=== PATIENT | female | born 1950 | race Caucasian/White ===

== ENCOUNTER 2020-01-24 01:10 | Outpatient (CLI) | payer MEDICARE, SELFPAY ==
[2020-01-24 20:05] LABS: SARS-CoV-2 RNA PCR Negative
== END 2020-01-24 01:11 | disposition home or self-care (01) ==
LOC: ANHCOVIDDT 01:10
PROVIDERS: PCP Internal Medicine; Visit Provider Internal Medicine Gastroenterology
DX: Z01.812 Encounter for preprocedural laboratory examination (principal); Z11.59 Encounter for screening for other viral diseases
CPT/HCPCS: 87635; C9803; U0003

== ENCOUNTER 2020-01-27 02:01 | Day surgery (SDC) | payer MEDICARE, SELFPAY ==
[2020-01-17 15:05] VITALS: BMI 30.1
[2020-01-27 08:16] VITALS: BP 152/89; PULSE 81; RESP 18; TEMP 36.2; O2SAT 97
--- NOTE | 2020-01-27 08:26 | P.PNAN_ITS ---
Anes - Initial Pre Proc Eval Procedure: Operation Date: 01/27/20 09:30 Proposed Procedures p Esophagogastroduodenoscopy - Travis Gleason MD Date/Time: 01/27/20 08:26 Surgeon: Travis Gleason MD Pre Op Diagnosis: dysphagia, abn barium swallow Patient Data Age: 69 Gender: F Height: 1.52 m Weight: 70 kg Allergies Allergy/AdvReac Type Severity Reaction Status Date / Time adhesive tape AdvReac REDNESS Verified 01/27/20 08:18 Home Medications Medication Instructions Recorded Confirmed Type albuterol sulfate [Ventolin HFA] 1 puff INHALATION QID PRN 01/17/20 01/17/20 History aspirin [Jennifer Aspirin] 325 mg PO HS 01/17/20 01/17/20 History atorvastatin 20 mg PO HS 01/17/20 01/17/20 History cholecalciferol (vitamin D3) 50 mcg PO HS 01/17/20 01/17/20 History [Vitamin D3] ferrous gluconate 324 mg PO HS 01/17/20 01/17/20 History fluoxetine [Prozac] 10 mg PO HS 01/17/20 01/17/20 History folic acid 1 mg PO HS 01/17/20 01/17/20 History hydrochlorothiazide 12.5 mg PO HS 01/17/20 01/17/20 History ipratropium-albuterol 1 ml INHALATION QID PRN 01/17/20 01/17/20 History levothyroxine 100 mcg PO HS 01/17/20 01/17/20 History montelukast 10 mg PO HS 01/17/20 01/17/20 History nitroglycerin 0.4 mg SUBLINGUAL BID PRN 01/17/20 01/17/20 History pantoprazole 40 mg PO HS 01/17/20 01/17/20 History potassium chloride 10 meq PO HS 01/17/20 01/17/20 History trazodone 50 mg PO HS PRN 01/17/20 01/17/20 History vitamin B complex [B 1 tablet PO HS 01/17/20 01/17/20 History Complex-Vitamin B12] Patient hx anesthesia problems: none Family hx anesthesia problems: none PMFSH Past Medical History Medical History (Updated 01/27/20 @ 08:29 by Trell Ahmadi MD) Anxiety Back pain CAD (coronary artery disease) 1 STENT 2012 COPD (chronic obstructive pulmonary disease) 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 Depression Gastroesophageal reflux disease DYSPHAGIA, ESOPHAGEAL STRICTURE- DILATED IN PAST Hemorrhoids HTN (hypertension) Hx of transient ischemic attack (TIA) X2 Hypercholesterolemia Hypothyroidism Surgical History Surgical History (Updated 01/27/20 @ 08:29 by Trell Ahmadi MD) Hx of cardiac catheterization 1 STENT 2012 Anes - Eval Final PreProcedure Day of Procedure 01/27/20 08:26 Patient weight: obese Heart: regular rate and rhythm Lungs: clear to auscultation and normal air movement Airway: Mallampati scale class II Neurological: alert and oriented Last oral intake: >/= 8 hours ASA classification: III Emergent: no Anesthetic plan: proceed Anesthesia type and monitoring: general GIVS Informed Consent: The patient's anesthetic plan and its attendant risks and benefits were discussed with the patient/family/POA. Questions were solicited and answers provided to the satisfaction of the patient/family/POA.
--- NOTE | 2020-01-27 08:44 | WPDGICN ---
Assessment and Plan Assessment and plan (1) Dysphagia: Code(s): R13.10 - Dysphagia, unspecified Status: Acute Assessment and Plan: Because of persistent difficulty swallowing. Plan is for EGD today. Patient's symptoms suggest narrowing of the esophagus. Recent barium swallow suggest cricopharyngeal dysfunction which is a possibility as well. Soft diet is advised until endoscopy can be accomplished. (2) Abnormal barium swallow: Code(s): R93.3 - Abnormal findings on diagnostic imaging of other parts of digestive tract Status: Acute GI Consult Note Consult date/time: 01/27/20 08:44 HPI: Verito Jimenez is a 69 year old female seen in evaluation at the request of Dr Priyank Diaz. Patient has complaints of difficulty swallowing over the last 1-1/2 years. She reports food catching in the throat. This happens more with solids compared to liquids. Recent barium swallow suggested indentation in the proximal esophagus suspicious for cricopharyngeal dysfunction. Review of Systems Review of Systems: All systems reviewed & are unremarkable except as noted in HPI and below PMFSH Past Medical History Medical History Anxiety Back pain CAD (coronary artery disease) 1 STENT 2012 COPD (chronic obstructive pulmonary disease) HX [employer] SMOKER Depression Gastroesophageal reflux disease DYSPHAGIA, ESOPHAGEAL STRICTURE- DILATED IN PAST Hemorrhoids HTN (hypertension) Hx of transient ischemic attack (TIA) X2 Hypercholesterolemia Hypothyroidism Surgical History Surgical History Hx of cardiac catheterization 1 STENT 2012 Meds Home Medications and Allergies Home Medications Medication Instructions Recorded Confirmed Type albuterol sulfate [Ventolin HFA] 1 puff INHALATION QID PRN 01/17/20 01/17/20 History aspirin [Jennifer Aspirin] 325 mg PO HS 01/17/20 01/17/20 History atorvastatin 20 mg PO HS 01/17/20 01/17/20 History cholecalciferol (vitamin D3) 50 mcg PO HS 01/17/20 01/17/20 History [Vitamin D3] ferrous gluconate 324 mg PO HS 01/17/20 01/17/20 History fluoxetine [Prozac] 10 mg PO HS 01/17/20 01/17/20 History folic acid 1 mg PO HS 01/17/20 01/17/20 History hydrochlorothiazide 12.5 mg PO HS 01/17/20 01/17/20 History ipratropium-albuterol 1 ml INHALATION QID PRN 01/17/20 01/17/20 History levothyroxine 100 mcg PO HS 01/17/20 01/17/20 History montelukast 10 mg PO HS 01/17/20 01/17/20 History nitroglycerin 0.4 mg SUBLINGUAL BID PRN 01/17/20 01/17/20 History pantoprazole 40 mg PO HS 01/17/20 01/17/20 History potassium chloride 10 meq PO HS 01/17/20 01/17/20 History trazodone 50 mg PO HS PRN 01/17/20 01/17/20 History vitamin B complex [B 1 tablet PO HS 01/17/20 01/17/20 History Complex-Vitamin B12] Allergies Allergy/AdvReac Type Severity Reaction Status Date / Time adhesive tape AdvReac REDNESS Verified 01/27/20 08:18 Vital Signs Vital Signs - 24 hr 01/27/20 08:16 Temperature 97.1 F L Pulse Rate 81 Respiratory Rate 18 Blood Pressure 152/89 H Pulse Oximetry 97 Exam Narrative: Exam Narrative: Physical exam reveals patient to be alert. Vital signs stable. HEENT exam unremarkable. Lungs are clear to auscultation and percussion. Heart is without murmur or extra sounds. Abdominal exam bowel sounds are present soft nontender with no organomegaly. Digital external rectal exam deferred today.
[2020-01-27] MEDS: LACTATED RINGERS 1,000 ML 150 ML IV CONT (08:45)
[2020-01-27] MEDS: BENZOCAINE (*SP) 60 ML SPRAY CAN (HURRICAINE) 1 SPRAY MUCOUS MEM (09:48)
[2020-01-27 09:52] VITALS: BP 117/68; PULSE 69; RESP 16; O2SAT 96
[2020-01-27 10:02] VITALS: BP 120/74; PULSE 71; RESP 20; O2SAT 96
[2020-01-27 10:12] VITALS: BP 149/87; PULSE 70; RESP 18; O2SAT 95
== END 2020-01-27 10:35 | disposition home or self-care (01) ==
PROVIDERS: PCP Internal Medicine; Visit Provider Internal Medicine Gastroenterology
PROC: 0DJ08ZZ Inspection of Upper Intestinal Tract, Via Natural or Artificial Opening Endoscopic (ICD-10-PCS; CPT 43235; principal; 2020-01-27 09:30)
DX: R13.10 Dysphagia, unspecified (principal); I10 Essential (primary) hypertension; I25.10 Atherosclerotic heart disease of native coronary artery without angina pectoris; K21.9 Gastro-esophageal reflux disease without esophagitis; J44.9 Chronic obstructive pulmonary disease, unspecified; E78.00 Pure hypercholesterolemia, unspecified; E03.9 Hypothyroidism, unspecified; F41.8 Other specified anxiety disorders; Z86.73 Personal history of transient ischemic attack (TIA), and cerebral infarction without residual deficits; Z95.5 Presence of coronary angioplasty implant and graft; Z79.82 Long term (current) use of aspirin; E66.9 Obesity, unspecified; Z68.30 Body mass index [BMI] 30.0-30.9, adult
CPT/HCPCS: 43450; 43235; J2704; J7120

== ENCOUNTER 2021-06-27 10:20 | Emergency (ER) | payer MEDICARE, SELFPAY ==
--- NOTE | 2021-06-27 10:27 | ED.SKABFB ---
HPI - Skin/Abscess/Foreign Bdy General Chief complaint: Skin/Abscess/Foreign Body Stated complaint: facial swelling,rash Time Seen by Provider: 06/27/21 10:27 Source: patient and RN notes reviewed History of Present Illness HPI narrative: Patient is a 70-year-old female who presents the urgent care with complaints of rash to the chest and facial swelling. Patient states that it started yesterday after she started a new medication 2 days ago, clindamycin. Patient states that for the last couple months she has been treated with oral antibiotics for an infection underneath a crown. Patient states that she had recent surgery and is on Plavix and therefore is unable to have a procedure done for some time. Patient denies of any fevers. Denies of any dental pain. Patient did not take anything [id number] for her itching, swelling or rash. Patient denies of any difficulty swallowing. States that she stopped taking the clindamycin. No other acute complaints. No acute distress noted. Patient aware of the plan of care. Some parts of this dictation were generated by voice recognition software and may contain typographical and/or grammatical inaccuracies. Related Data Home Medications Medication Instructions Recorded Confirmed albuterol sulfate [Ventolin HFA] 1 puff INHALATION QID PRN 01/17/20 06/27/21 aspirin [Jennifer Aspirin] 325 mg PO HS 01/17/20 06/27/21 atorvastatin 20 mg PO HS 01/17/20 06/27/21 cholecalciferol (vitamin D3) 50 mcg PO HS 01/17/20 06/27/21 [Vitamin D3] ferrous gluconate 324 mg PO HS 01/17/20 06/27/21 fluoxetine [Prozac] 10 mg PO HS 01/17/20 06/27/21 folic acid 1 mg PO HS 01/17/20 06/27/21 hydrochlorothiazide 12.5 mg PO HS 01/17/20 06/27/21 ipratropium-albuterol 1 ml INHALATION QID PRN 01/17/20 06/27/21 levothyroxine 100 mcg PO HS 01/17/20 06/27/21 montelukast 10 mg PO HS 01/17/20 06/27/21 nitroglycerin 0.4 mg SUBLINGUAL BID PRN 01/17/20 06/27/21 pantoprazole 40 mg PO HS 01/17/20 06/27/21 potassium chloride 10 meq PO HS 01/17/20 06/27/21 trazodone 50 mg PO HS PRN 01/17/20 06/27/21 vitamin B complex [B 1 tablet PO HS 01/17/20 06/27/21 Complex-Vitamin B12] Allergies Allergy/AdvReac Type Severity Reaction Status Date / Time clindamycin Allergy Rash Verified 06/27/21 10:41 adhesive tape AdvReac REDNESS Verified 01/27/20 08:18 Review of Systems Review of Systems: CONSTITUTIONAL: Denies fever, chills, or sweats. EYES: Denies visual changes, redness, or discharge. ENT: Denies rhinorrhea, congestion, sore throat, or otalgia. Reports of facial swelling CARDIOVASCULAR: Denies chest pain, palpitations, or edema. RESPIRATORY: Denies cough or dyspnea. GASTROINTESTINAL: Denies abdominal pain, nausea, vomiting, or diarrhea. GENITOURINARY: Denies dysuria or hematuria. SKIN: Reports of itchy rash to the chest MUSCULOSKELETAL: Denies back pain, joint pain, or myalgia. NEUROLOGIC: Denies headache, numbness, or weakness. All other systems reviewed are negative, except as documented in HPI. [facility] Past Medical History Medical History (Updated 06/27/21 @ 10:52 by ISAAC Lopez) Anxiety Back pain CAD (coronary artery disease) 1 STENT 2012 COPD (chronic obstructive pulmonary disease) HX PRISON SMOKER Depression Gastroesophageal reflux disease DYSPHAGIA, ESOPHAGEAL STRICTURE- DILATED IN PAST Hemorrhoids HTN (hypertension) Hx of transient ischemic attack (TIA) X2 Hypercholesterolemia Hypothyroidism Surgical History Surgical History Hx of cardiac catheterization 1 STENT 2012 Comments At the time of my signature, I reviewed and agree with the nursing past medical, surgical, social, and family history. There is no relevant family history pertinent to the patient complaint. Exam Narrative: GENERAL: This is a well-nourished, well-developed patient, in no apparent distress. HEAD: normocephalic, atraumatic. Mild diffuse facial swelling EYES: P
[2021-06-27 10:36] VITALS: BP 102/68; PULSE 63; RESP 18; TEMP 36.1; O2SAT 98
== END 2021-06-27 10:57 | disposition home or self-care (01) ==
PROVIDERS: Emergency Provider Nurse Practitioner Family; PCP Internal Medicine
DX: L27.0 Generalized skin eruption due to drugs and medicaments taken internally (principal); T36.8X5A Adverse effect of other systemic antibiotics, initial encounter; I25.10 Atherosclerotic heart disease of native coronary artery without angina pectoris; Z95.5 Presence of coronary angioplasty implant and graft; J44.9 Chronic obstructive pulmonary disease, unspecified; K21.9 Gastro-esophageal reflux disease without esophagitis; I10 Essential (primary) hypertension; Z86.73 Personal history of transient ischemic attack (TIA), and cerebral infarction without residual deficits; E78.00 Pure hypercholesterolemia, unspecified; E03.9 Hypothyroidism, unspecified; F41.9 Anxiety disorder, unspecified
CPT/HCPCS: 99213; G0463

== ENCOUNTER → 2021-11-27 09:43 | Outpatient (CLI) | payer MEDICARE, SELFPAY ==
--- NOTE | ~2021-11-27 | MR_ITS ---
EXAMINATION: MR lumbar spine wo con DATE: 11/27/2021 10:20 INDICATION: Low back pain. Left buttock pain. Left heel numbness. Left leg weakness. TECHNIQUE: Magnetic resonance imaging (MRI) of the lumbar spine was performed without intravenous con trast. Sequences included sagittal T2-weighted FSE, sagittal T2-weighted FS FSE, sagittal T1-weighted FSE, and axial T2-weighted FSE. COMPARISON: None FINDINGS: There is 11 degrees dextroscoliosis of lumbar spine. There is 3 mm retrolisthesis of L2 on L3 and L3 on L4. Vertebral body heights are normal. There is mildly decreased disc height at L1-L2, s everely decreased disc height at L2-L3, and mildly decreased disc height at L3-L4 and L4-L5. The dist al spinal cord signal intensity is normal. The conus medullaris is at L1. The following disc levels a re specifically discussed: L1-L2: The disc is bulging. There is mild bilateral facet joint osteoarthritis. There is mild bilater al neural foraminal stenosis. There is mild central canal stenosis. L2-L3: The disc is bulging and has an annular fissure. There is mild bilateral facet joint osteoarthr itis. There is mild bilateral neural foraminal stenosis. There is mild central canal stenosis. L3-L4: The disc is bulging and has an annular fissure. There is mild bilateral facet joint osteoarthr itis. There is mild bilateral neural foraminal stenosis. There is mild central canal stenosis. L4-L5: The disc is bulging and has an annular fissure. There is mild bilateral facet joint osteoarthr itis. There is moderate right and mild left neural foraminal stenosis. There is mild central canal st enosis. L5-S1: The disc is bulging and has an annular fissure. There is severe bilateral facet joint osteoart hritis. There is mild bilateral neural foraminal stenosis. There is mild central canal stenosis. IMPRESSION: 1. Severe lumbar spondylosis. 2. Lumbar dextroscoliosis. Reviewed, dictated and finalized at location A.
== END ==
PROVIDERS: PCP Internal Medicine; Visit Provider Internal Medicine
DX: M54.32 Sciatica, left side (principal); M47.816 Spondylosis without myelopathy or radiculopathy, lumbar region; M41.86 Other forms of scoliosis, lumbar region
CPT/HCPCS: 72148

== ENCOUNTER 2022-06-11 10:03 | Emergency (ER) | payer MEDICARE, SELFPAY ==
[2022-06-11 10:16] VITALS: BP 147/79; PULSE 68; RESP 18; TEMP 36.4; O2SAT 100
--- NOTE | 2022-06-11 10:16 | ED.FEMALEGU ---
HPI - Female Genitourinary General Chief complaint: Urogenital-Female Stated complaint: . Time Seen by Provider: 06/11/22 10:16 Source: patient, RN notes reviewed and old records reviewed Mode of arrival: ambulatory Limitations: no limitations History of Present Illness HPI Narrative: 71-year-old female presents to the [facility] with complaints urinary frequency, urgency, burning That has gradually been getting worse for the last 6 days. No treatment prior to arrival. Denies fevers but had felt feverish. Denies abdominal pain. No CVA tenderness. No nausea or vomiting Related Data Home Medications Medication Instructions Recorded Confirmed albuterol sulfate 90 mcg/actuation 1 puff inhalation QID PRN 01/17/20 06/11/22 aerosol inhaler (Ventolin HFA) Shortness Of Breath cholecalciferol (vitamin D3) 50 50 mcg PO HS 01/17/20 06/11/22 mcg (2,000 unit) capsule (Vitamin D3) ferrous gluconate 324 mg (37.5 mg 324 mg PO HS 01/17/20 06/11/22 iron) tablet ipratropium 0.5 mg-albuterol 3 mg 1 ml inhalation QID PRN Shortness 01/17/20 06/11/22 (2.5 mg base)/3 mL nebulization Of Breath soln nitroglycerin 0.4 mg sublingual 0.4 mg sublingual BID PRN Chest 01/17/20 06/11/22 tablet Pain vitamin B complex (B 1 tablet PO HS 01/17/20 06/11/22 Complex-Vitamin B12 tablet) levothyroxine 75 mcg tablet 75 mcg PO DAILY 03/24/22 06/11/22 (Synthroid) coenzyme Q10 200 mg capsule 200 mg PO DAILY 03/25/22 06/11/22 Allergies Allergy/AdvReac Type Severity Reaction Status Date / Time clindamycin Allergy Rash Verified 06/11/22 10:24 adhesive tape AdvReac REDNESS Verified 06/11/22 10:24 Review of Systems Review of Systems: All systems reviewed & are unremarkable except as noted in HPI and below Constitutional: Constitutional: Reports no additional constitutional complaints Eyes: Eyes: Reports no additional eye complaints ENT: Reports system reviewed and no additional complaints, except as documented Cardiovascular: Cardiovascular: Reports no additional cardiovascular complaints, Denies chest pain and Denies dyspnea Respiratory: Respiratory: Reports no additional respiratory complaints, Denies chest congestion, Denies cough and Denies dyspnea Gastrointestinal: Gastrointestinal: Reports no additional gastrointestinal complaints, Denies abdominal pain, Denies nausea and Denies vomiting Genitourinary: Genitourinary: Reports as per HPI and Reports dysuria Musculoskeletal: Musculoskeletal: Reports no additional musculoskeletal complaints Integumentary/Breasts: Skin/Breast: Reports system reviewed and no additional complaints, except as docu Neurologic: Reports system reviewed and no additional complaints, except as documented Psychiatric: Psychiatric: Reports no additional psychiatric complaints Allergic/Immunologic: Allergic/Immunologic: Reports no additional allergic/immunologic complaints PMFSH Past Medical History Medical History Anemia Anxiety Back pain CAD (coronary artery disease) 1 STENT 2012 COPD (chronic obstructive pulmonary disease) HX [facility] SMOKER Depression Gastroesophageal reflux disease DYSPHAGIA, ESOPHAGEAL STRICTURE- DILATED IN PAST Hemorrhoids HTN (hypertension) Hx of transient ischemic attack (TIA) X2 Hypercholesterolemia Hypothyroidism Surgical History Surgical History History of left-sided carotid endarterectomy Hx of cardiac catheterization 1 STENT 2012 Social History Social History Smoking packs per day: 2 Smoking cigarettes per day: 40.0 Years smoked: 60 Smoking pack-years: 120.00 Smoking status: Former smoker Alcohol intake: never Substance use: never Gender identity (if verbalized by the patient): Female Comments At the time of my signature, I reviewed and agree with the nursing past medic
== END 2022-06-11 11:16 | disposition home or self-care (01) ==
PROVIDERS: Emergency Provider Nurse Practitioner; PCP Family Medicine
DX: N39.0 Urinary tract infection, site not specified (principal); Z87.891 Personal history of nicotine dependence; J44.9 Chronic obstructive pulmonary disease, unspecified; K21.9 Gastro-esophageal reflux disease without esophagitis; E78.00 Pure hypercholesterolemia, unspecified; E03.9 Hypothyroidism, unspecified; I25.10 Atherosclerotic heart disease of native coronary artery without angina pectoris; Z95.5 Presence of coronary angioplasty implant and graft; D64.9 Anemia, unspecified; F41.9 Anxiety disorder, unspecified
CPT/HCPCS: 81003; 87077; 87086; 87186; 99213; G0463

== ENCOUNTER 2022-08-31 13:00 | Outpatient (RCR) | payer MEDICARE, SELFPAY ==
--- NOTE | 2022-08-03 13:58 | STOPEVAL1 ---
Assessment and note entered by Alona Andrade, ART APPRAISER Evaluation Information Assessment Status Evaluation Reported Pain Level Pain Score 0: Self Report Assessment ST Clinical Summary VOICE EVALUATION This patient was seen for a Voice Evaluation after being referred for Vocal Cord Atrophy. Patient reports a history of three previous CVA's which she states did not affect her voice, but she is also status/post Carotid Endarderectomy 05/23 and she states that she noted a change in voice following that procedure. Patient also reported a history of dysphagia that occurred prior to the Carotid Endarderectomy and she stated that a swallow test, she feels a Modified Barium Swallow study, revealed a thick bar across the back of her throat requiring surgery. Dysphagia was not discussed today but may be addressed in future sessions. Today the patient exhibited vocal pitch, range and average, and loudness, both in structured tasks and conversationally, to be within normal limits. Patient also experienced pitch breakst throughout reading and conversational tasks, demonstrated as loss in the line of pitch when measured on a voice program. Patient reported that the loss of the line on the graph is exactly what she thought her voice sounded like when speaing. Of note, patient initially started the session with slightly hoarse voice which became stronger following voicing tasks and then at end of session, the decreased vocal quality was again noticeable by this therapist, as if vocal cords had fatigued after working out. Patient farzaneh be seen twice weekly for four weeks to address vocal cord adduction strengthening exercises, not to increase loudness but to increase the strength of the vocal cords to prevent reduced vocal quality and to improve ability to sustain and change pitch when speaking. Results and recommendations were given to the patient who voiced understanding and agreed to continue with Speech Therapy program. Plan of Care Interventions Treatment of Voice ST Services Indicated Yes Treatment Frequency and
--- NOTE | 2022-08-31 15:35 | STOPDC ---
Assessment and note entered by Alona Andrade [employer] Evaluation Information Assessment Status Discharge Reported Pain Level Pain Score 0: Self Report Pain Score 0: Self Report Assessment ST Clinical Summary TREATMENT SESSION AND DISCHARGE SUMMARY This patient has been seen for an initial voice evaluation and then seven direct Speech Therapy sessions for voice secondary to raspy, hoarse vocal quliaty. Her ENT diagnosed her with vocal cord atrophy. During these sessions, patient was instructed in the use of vocal hygiene program, gastroesophageal reflux guidelines, and laryngeal adduction exercises to facilitate increased strength in the vocal cords while voicing. Patient demonstrated good understanding of home exercise program and completed exercises daily. Patient was then instructed in the use of the yawn-sigh technique in order to facilitate reduced stress on the vocal cords and improved breath control and loudness when speaking in functional sentences. Patient demonstrated difficulty with this task. She was instructed to open mouth wide and inhale as in a yawn and she frequently did not open mouth wide but inhaled through her teeth. She was also instructed to gently exhale briefly and then produce /h/ syllables and words and again, she often just said the word/words with increased loudness. With therapist instruction, verbal and visual cues and models, patient was able to achieve a full yawn-sign /h/ word/phrases and general two-word phrases only 50% of the time using open mouth inhalation, exhalation prior to initiating vocalization, easy onset of vocalization, and slightly lower than normal vocal loudness. Today the patient reported that she has been positively diagnosed with Sjogren's syndrome contributing to dry eyes and possibly hoarse voice. She reported no significant change in voice since last session. She complained of having a lot of phlegm in her throat due to sinus and allergies which she says is all year round. She stated that this symptom of phlegm is more significant at night when laying down but usually is able to clear it with a cough. Today she reports her throat i
== END 2022-09-05 11:06 | disposition home or self-care (01) ==
LOC: ANHST 13:00
PROVIDERS: PCP Nurse Practitioner Family; Visit Provider Otolaryngology
DX: R49.0 Dysphonia (principal); R49.9 Unspecified voice and resonance disorder; J38.7 Other diseases of larynx
CPT/HCPCS: 92507; 92524

== ENCOUNTER 2022-09-05 11:55 | Emergency (ER) | payer MEDICARE, SELFPAY ==
[2022-09-05 12:10] VITALS: BP 159/74; PULSE 58; RESP 18; TEMP 36.2; O2SAT 98
--- NOTE | 2022-09-05 12:24 | ED.EXTPRO ---
HPI - Extremity Problem General Chief complaint: Extremity Problem,Nontraumatic Stated complaint: rt arm pain and stiffness Time Seen by Provider: 09/05/22 12:13 Source: patient Mode of arrival: ambulatory Limitations: no limitations History of Present Illness HPI Narrative: Patient presents today complaining of right elbow pain, ?on the funny bone. ? Symptoms began 2 days ago and have been worsening since onset. Denies trauma or injury. She currently rates her pain 10/10, which increases with movement. She has been taking Tylenol and using BenGay with some relief. Denies any repetitive motions or heavy lifting. Denies numbness or tingling in the arm or hand. Related Data Home Medications Medication Instructions Recorded Confirmed cholecalciferol (vitamin D3) 50 50 mcg PO HS 01/17/20 09/05/22 mcg (2,000 unit) capsule (Vitamin D3) ferrous gluconate 324 mg (37.5 mg 324 mg PO HS 01/17/20 09/05/22 iron) tablet ipratropium 0.5 mg-albuterol 3 mg 1 ml inhalation QID PRN Shortness 01/17/20 09/05/22 (2.5 mg base)/3 mL nebulization Of Breath soln nitroglycerin 0.4 mg sublingual 0.4 mg sublingual BID PRN Chest 01/17/20 09/05/22 tablet Pain vitamin B complex (B 1 tablet PO HS 01/17/20 09/05/22 Complex-Vitamin B12 tablet) coenzyme Q10 200 mg capsule 200 mg PO DAILY 03/25/22 09/05/22 Allergies Allergy/AdvReac Type Severity Reaction Status Date / Time adhesive tape AdvReac Mild REDNESS Verified 09/05/22 12:03 clindamycin AdvReac Mild Rash Verified 09/05/22 12:03 Review of Systems Review of Systems: CONSTITUTIONAL: Denies body aches, fever, chills, or sweats. EYES: Denies visual changes, redness, or discharge. ENT: Denies rhinorrhea, congestion, sore throat, or otalgia. CARDIOVASCULAR: Denies chest pain, palpitations, or edema. RESPIRATORY: Denies cough or dyspnea. GASTROINTESTINAL: Denies abdominal pain, nausea, vomiting, or diarrhea. GENITOURINARY: Denies dysuria or hematuria. SKIN: Denies rash, itching, or wounds. MUSCULOSKELETAL: Denies back pain, or myalgia.+ right elbow pain NEUROLOGIC: Denies headache, numbness, tingling, or weakness. PSYCH: Denies depression or anxiety. 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 Depression Gastroesophageal reflux disease DYSPHAGIA, ESOPHAGEAL STRICTURE- DILATED IN PAST Hemorrhoids HTN (hypertension) Hx of transient ischemic attack (TIA) X2 Hypercholesterolemia Hypothyroidism Stroke Surgical History Surgical History History of left-sided carotid endarterectomy Hx of cardiac catheterization 1 STENT 2012 Family History Family History Sibling Depression Cerebrovascular accident Thyroid disorder Other Cancer Social History Social History Smoking packs per day: 2 Smoking cigarettes per day: 40.0 Years smoked: 60 Smoking pack-years: 120.00 Smoking status: Former smoker Second hand tobacco smoke exposure: No Alcohol intake: never Substance use: never Substance use type: does not use Lack of Transportation: No Lack of Food: Never True Current Housing: I Have Housing Concerned About Future Housing: No Difficulty Paying Gas/Electric Bills: No Difficulty Paying for Meds: No Currently Unemployed: No Education: High School Diploma/GED Difficulty w/ Childcare or Family Care: No Living arrangements: with family Occupation/Education: occupation Gender identity (if verbalized by the patient): Female Sexual Orientation (if Verbalized by the Patient): Straight or Heterosexual Comments At time of signature, I have reviewed and agree with n
== END 2022-09-05 12:31 | disposition home or self-care (01) ==
PROVIDERS: Emergency Provider Nurse Practitioner
DX: M77.8 Other enthesopathies, not elsewhere classified (principal); Z87.891 Personal history of nicotine dependence; J44.9 Chronic obstructive pulmonary disease, unspecified; K21.9 Gastro-esophageal reflux disease without esophagitis; I10 Essential (primary) hypertension; I25.10 Atherosclerotic heart disease of native coronary artery without angina pectoris; E78.00 Pure hypercholesterolemia, unspecified; E03.9 Hypothyroidism, unspecified; Z86.73 Personal history of transient ischemic attack (TIA), and cerebral infarction without residual deficits; F41.9 Anxiety disorder, unspecified; F32.A Depression, unspecified
CPT/HCPCS: 99213; G0463

== ENCOUNTER 2024-08-14 13:15 | Outpatient (CLI) | payer MEDICARE, SELFPAY ==
--- NOTE | ~2024-08-14 | XR_ITS ---
MODIFIED ESOPHAGRAM HISTORY: Dysphagia. TECHNIQUE: Modified barium esophagram was performed on 08/14/2024. I administered fluoroscopy and perf ormed the exam with speech pathologist. Patient was seated for lateral fluoroscopic imaging for luis felipe stion of thin liquids, pudding, solids and quantified amounts, followed by thin liquids in uncontroll ed amounts. This was recorded on tape. A single fluoroscopic spot image was also recorded. The DAP fo r this procedure was 0.76 Gycm2. The amount of fluoroscopy time used during this procedure was 1.7 mi nutes. FINDINGS: Oral stage: Adequate function. Pharyngeal stage: Adequate function. Cervical/esophageal stage: Adequate function. IMPRESSION: Patient tolerated regular consistency oral feedings in the upright position. Please lisette elate with speech pathologist findings and specific feeding recommendations. Reviewed, dictated and finalized at location A. F ENTERPRISE ARCHITECT IMPRESSION: Patient tolerated regular consistency oral feedings in the upright position. Please correlate with speech pathologist findings and specific feedi ng recommendations.
--- OUTSIDE RECORDS SUMMARY | 2024-08-14 13:22 | XMS_ITS | Clinical Summary ---
Author Organization [facility] [place] [address] Address [address] [place] [address] Care Team Providers Care Dirt Bike Mechanic Name Role Phone Fercho Mccallum MD Primary Care Provider [phone] Allergies Active Allergy Reactions Criticality Noted Date Comments Adhesive Tape-Silicones Edema,Redness Medium Clindamycin Hives Medium 08/18/2023 Hydralazine Itching,Palpitations Low 08/18/2023 Medications montelukast (SINGULAIR) 10 mg tablet take 1 tablet by oral route every day in the evening 0 0 3 Active ferrous gluconate 324 mg (37.5 mg of elemental iron) tablet Take 1 tablet (324 mg total) by mouth daily Active FLUoxetine (PROzac) 10 mg tablet/capsule Take 1 tablet/capsule (10 mg total) by mouth daily Active ergocalciferol (VITAMIN D) 50,000 unit capsule Take 1 capsule (50,000 Units total) by mouth once a week Active coenzyme Q10 200 mg capsule Take 1 capsule (200 mg total) by mouth daily Active levothyroxine (SYNTHROID) 50 mcg tablet [address] (PROTONIX) 40 mg EC tablet Take 1 tablet (40 mg total) by mouth 2 (two) times a day 0 Active cyanocobalamin (Vitamin B-12) 1,000 mcg tabletIndication s:Prevention of Vitamin B12 Deficiency Take 1 tablet (1,000 mcg total) by mouth daily Active clopidogreL (PLAVIX) 75 mg tablet Take 1 tablet (75 mg total) by mouth daily 2 Active pravastatin (PRAVACHOL) 20 mg tablet Take 2 tablets (40 mg total) by mouth nightly at bedtime Active cholecalciferol (VITAMIN D-3) 2000 unit tablet Take 1 tablet (2,000 Units total) by mouth daily Active lisinopriL (PRINIVIL,ZESTRI L) 20 mg tablet Take 1 tablet (20 mg total) by mouth daily 4 Active aspirin 81 mg enteric coated tablet Take 1 tablet (81 mg total) by mouth daily 4 Active nitroglycerin (NITROSTAT) 0.[address] 1 tablet (0.4 mg total) under the tongue every 5 (five) minutes as needed for chest pain 4 Active Lactobacillus acidophilus 10 billion cell capsule Take 1 capsule by mouth daily Active cycloSPORINE (RESTASIS) 0.05 % ophthalmic emulsion Administer 1 drop into both eyes 2 (two) times a day Active ezetimibe (ZETIA) 10 mg tablet Take 1 tablet (10 mg total) by mouth daily 90 tablet 2 4 04/24/20 25 Active Active Problems Problem Noted Date Diagnosed Date Coronary artery disease invo lving [place] coronary artery of [place] heart without angina pectoris 06/22/2017 History of coronary artery stent placement 06/22 Medical History Medical History Date Comments Hypertension Hypertension Cerebrovascular accident (CVA) (HCC) Stroke 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 Family History Medical History Relation Name Comments Stent Brother 2 Coronary Stent Placement; Coronary artery disease Mother Corey nary Artery Bypass Graft; Relation Name Status Comments Brother 1 Alive Brother 2 Mother Alive Social History Tobacco Use Types Packs/Day Years Used Date Smoking Tobacco: Former Cigarettes Q uit: 03/26/2018 Smokeless Tobacco: Never Tobacco Cessation:Counseling Given: Not Answered Comments:Smoking History Packs/day: 1 Packs Alcohol Use Standard Drinks/Week Comments No 0 (1 standard drink = 0.6 oz pur e alcohol) Comments Unknown Sex and Gender Information Value Date Recorded Sex Assigned at Not on file 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 Gender Identity Not on file Sexual Orientation Not on file Obstetrics History Last Filed Vital Signs Vital Sign Reading Time Taken Comments Blood Pressure 126/68 04/23/2024 1:19 PM CDT Pulse 99 04/23/2024 1:19 PM CDT Temperature - - Respiratory Rate - - Oxygen Saturation 95% 04/23/2024 1:19 PM CDT Inhaled Oxygen Concentration - - Weight 65.1 kg (143 lb 9.6 oz) 04/23/2024 1:19 P M CDT Height 152.4 cm (5') 04/23/2024 1:19 PM CDT Body Mass Index 28.04 04/23/2024 1:19 PM CDT Plan of Treatment Health Maintenance Due Date Last Done Comments Colon Cancer Screening-Colonoscopy 1950 Depression Screening 1950 Fall Risk Assessment 1950 Hepatitis C Screening 1950 DTaP/Tdap/Td Vaccine (1 - Tdap) 1961 Hepatitis B Screening 1968 Well Visit 65+ 10/17/2015 Zoster Vaccine (2 of 3) 04/23/2016 02/27/2016 Influenza Vaccine (#1) 2024 8, 03/08/2017, 05/05/2016 Breast Cancer Screening-Mammogram 02/25/2025 02/26/2024, 02/26/2024, 04/19/2019 Osteoporosis Screening-Bone Density Scan 02/25/2026 02/26/2024 Pneumococcal vaccine 65+ Completed 03/08/2017, 02/01 Insurance MEDICARE [facility] MEDICARE [facility] Care Teams Dirt Bike Mechanic Relationship Specialty Start Date End Date Fercho Mccallum MD [address] [place] [id number] PCP - General Family Medicine 04/19/22
--- OUTSIDE RECORDS SUMMARY | 2024-08-14 13:23 | XMS_ITS | Clinical Summary ---
Author Organization [facility] Address [address] [place] [address] Care Team Providers Care Lay Out And Detail Drafter Name Role Phone Unavailable Primary Care Provider Unavailabl e Source Comments [id number],non-owned Affiliates and Associated Physician Practices is amultiple site organization consisting of ambulatory clinics and hospital sitesin [place], [place] and [place]. This disclosure is being madepursuant to the Care Everywhere program and may not contain all information available regarding this patient. Last updated 18.[id number] Active Problems Problem Noted Date Diagnosed Date Cerebrovascular accident (CVA) 05/03/2021 Social History Tobacco Use Types Packs/Day Years Used Date Smoking Tobacco: Never Assessed Sex and Gender Information Value Date Recorded Sex Assigned at Not on file Gender Identity Not on file Sexual Orientation Not on file Plan of Treatment Health Maintenance Due Date Last Done Comments BONE DENSITY TESTING 1950 COLOGUARD (AGES 45-75) - COL ON CA SCREENING 1950 COLON MONITORING 1950 COLONOSCOPY - COLON CA SCREENING 1950 CT COLONOGRAPHY - COLON CA SCREENING 1950 Colorectal Cancer Screening 1950 FIT - COLON CA SCREENING 1950 FLEX SIG - COLON CA SCREENING 1950 LIPID TESTING 1950 MAMMOGRAM 1950 HEPATITIS C SCREENING 10/11/1968 DTAP/TDAP/TD VACCINES (1 - Tdap) 1969 PNEUMOCOCCAL VACCINE 50+ (1 of 1 - PCV) 2000 ZOSTER VACCINE (1 of 2) 2000 COVID-19 VACCINE ( - 2023-2 5 season) 2024 INFLUENZA VACCINE (#1) 2024 DEPRESSION SCREENING 07/03/2024 Respiratory Syncytial Virus (RSV) Vaccine Pt: or over 60 yrs (1 - 1-dose 75+ series) 2025 HEPATITIS B VACCINE Aged Out No longe r eligible based on patient's age to complete this topic HIB VACCINE Aged Out No longer eligi ble based on patient's age to complete this topic HPV VACCINE Aged Out No longer eligi ble based on patient's age to complete this topic MENINGOCOCCAL (Group B) VACCINE Aged Out No longer eligible based on patient's age to complete this topic MENINGOCOCCAL VACCINE Aged Out No abram jeremiah eligible based on patient's age to complete this topic
--- OUTSIDE RECORDS SUMMARY | 2024-08-14 13:23 | XMS_ITS | Referral Summary ---
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
--- OUTSIDE RECORDS SUMMARY | 2024-08-14 13:23 | XMS_ITS | Referral Summary ---
Author Organization [facility] Address [address] [place] [address] Care Team Providers Care Certified Composites Technician Name Role Phone Unavailable Primary Care Provider Unavailabl e Source Comments [facility],non-owned Affiliates and Associated Physician Practices is amultiple site organization consisting of ambulatory clinics and hospital sitesin [place], [place], [place] and [place]. This disclosure is being madepursuant to the Care Everywhere program and may not contain all information available regarding this patient. Last updated 18.[facility] Active Problems Problem Noted Date Diagnosed Date Cerebrovascular accident (CVA) 05/03/2021 Social History Tobacco Use Types Packs/Day Years Used Date Smoking Tobacco: Never Assessed Sex and Gender Information Value Date Recorded Sex Assigned at Not on file Gender Identity Not on file Sexual Orientation Not on file Plan of Treatment Not on file
--- OUTSIDE RECORDS SUMMARY | 2024-08-14 13:23 | XMS_ITS | Patient Health Summary ---
Author Organization [facility] Address [address] [place] [address] Care Team Providers Care Strategic Solutions Consultant Name Role Phone Unavailable Primary Care Provider Unavailabl e Note from [facility],non-owned Affiliates and Associated Physician Practices is amultiple site organization consisting of ambulatory clinics and hospital sitesin [place], [place], [place] and [place]. This disclosure is being madepursuant to the Care Everywhere program and may not contain all information available regarding this patient. Last updated 18.[facility] Active Problems Problem Noted Date Diagnosed Date Cerebrovascular accident (CVA) 05/03/2021 Social History Tobacco Use Types Packs/Day Years Used Date Smoking Tobacco: Never Assessed Sex and Gender Information Value Date Recorded Sex Assigned at Not on file Gender Identity Not on file Sexual Orientation Not on file
--- OUTSIDE RECORDS SUMMARY | 2024-08-14 13:23 | XMS_ITS | Clinical Summary ---
Author Organization [facility] Address [address] [place] [address] Care Team Providers Care Clinical Project Assistant Name Role Phone Jose Cruz Pedro MD Unavailable [phone] Slime Naylor PA-C Primary Care Provider [phone] Allergies Active Allergy Reactions Criticality Noted Date Comments Clindamycin Hives 02/09/2022 Hydralazine Palpitations Medium 08/01/2023 Tape Redness Medium 05/03/2021 Medications ferrous gluconate 324 (38 FE) MG tablet Take 1 tablet (324 mg total) by mouth nightly at bedtime. Active FLUoxetine 10 MG capsule Take 1 capsule (10 mg total) by mouth daily. 03/01/2021 Active montelukast 10 MG tablet Take 1 tablet (10 mg total) by mouth daily. 03/08/2021 Active pantoprazole EC 40 MG tablet Take 1 tablet (40 mg total) by mouth 2 (two) times daily. 03/30/2021 Active Cholecalciferol (VITAMIN D3) 50 MCG (1999 UT) Tab Take 1 tablet (50 mcg total) by mouth nightly at bedtime. Active Coenzyme Q10 200 MG Cap Take 200 mg by mouth daily. Active clopidogrel (PLAVIX) 75 MG tabletIndication s:Cerebrovascula r accident (CVA), unspecified mechanism (CMS/HCC HHS/HCC) Take 1 tablet (75 mg total) by mouth daily. 30 tablet 5 05/28/2021 Active probiotic (FLORAJEN3) Cap capsule Take 1 capsule by mouth daily. Active cycloSPORINE (RESTASIS) 0.05 % ophthalmic emulsion 1 drop 2 (two) times daily. Active levothyroxine (SYNTHROID) 50 MCG tablet Take 1.5 tablets (75 mcg total) by mouth every morning. Active pravastatin (PRAVACHOL) 40 MG tablet Take 1 tablet (40 mg total) by mouth nightly at bedtime. Active aspirin EC (ECOTRIN) 81 MG tablet Take 1 tablet (81 mg total) by mouth daily. 08/01/2023 Active vitamin B-12 (CYANOCOBALAMIN) (CYANOCOBALAMIN) 1000 mcg tablet Take 1 tablet (1,000 mcg total) by mouth daily. Active fluconazole (DIFLUCAN) 150 MG tablet Take 1 tablet (150 mg total) by mouth once. 10/03/2023 Active lisinopril (PRINIVIL) 20 MG tablet Take 0.5 tablets (10 mg total) by mouth daily. 08/15/2023 Active nitroglycerin (NITROSTAT) 0.[address] 1 tablet (0.4 mg total) under the tongue every 5 (five) minutes as needed. 08/08/2023 Active albuterol sulfate HFA 108 (90 Base) MCG/ACT inhaler Inhale 2 puffs into the lungs every 4 (four) hours as needed. 09/11/2023 Active ezetimibe (ZETIA) 10 MG tablet Take 1 tablet (10 mg total) by mouth daily. 10/26/2023 10/26/19 25 Active alendronate (FOSAMAX) 70 MG tablet Take 1 tablet (70 mg total) by mouth once a week. 02/27/2024 Active Active Problems Problem Noted Date Diagnosed Date Hypertensive urgency 07/30/2023 Carotid artery stenosis, symptomatic, left 05/13 Preoperative cardiovascular examination 05/06/20 21 Assessment & Plan (05/06/2021 12:22 AM CDT): Given that she has symptoms of chest pain or shortness of breath in regards to her coronary history, I recommend that she undergo nuclear stress testing prior to her carotid surgery. I reviewed her nuclear stress test and it does not show any perfusion abnormalities and she can go forward with carotid surgery. She is a intermediate risk given her prior coronary disease. Coronary artery disease of n ative artery of [place] heart with stable angina pectoris 05/06/2021 Assessment & Plan (05/06/2021 12:23 AM CDT): Given that she has symptoms of chest discomfort, I recommended she undergo nuclear stress testing, which was within normal limits. Continue clopidogrel. Primary hypertension 05/06/2021 Overview (05/06/2021): Continue losartan Assessment & Plan (05/06/2021 12:25 AM CDT): Continue losartan Stroke (cerebrum) ([facility]) 05/04/2021 History of coronary artery stent placement 06/22 Stye 03/05/2012 Immunizations Name Administration Dates Next Due Influenza Adult (Generic) 03/14/2018,03/08/2017, 05/05/2016 Pneumococcal (Pneumovax 23) 03/08/2017 Pneumococcal (Prevnar 13) 02/27/2016 Zoster (Zostavax) 92453 Unt/0.65Ml 02/27/2016 Family History Medical History Relation Comments Hypertension Brother Cancer Father bladder cancer Breast Cancer Neg Hx Relation Status Comments Brother Other has a brother wi th htn (has 4 brothers) Daughter Alive Father (Age 82) of bladde r cancer Mother (Age 89) of hx of rheumatoid arthritis Sister Other has 3 sisters Son Alive Social History Tobacco Use Types Packs/Day Years Used Date Smoking Tobacco: Former Cigarettes 1.5 40 0 07/03/1978 - 07/03/2018 Smokeless Tobacco: Never Tobacco Cessation:Counseling Given: No Alcohol Use Standard Drinks/Week Comments Not Currently 0 (1 standard drink = 0.6 oz pure alcohol) rarely, once a year has a drink [facility] Utilities Answer Date Recorded In the past 12 months has th e Mob[employer], gas, oil, or water Reading Room threatened to shut off services in your home? No 07/30/2023 Humiliation, Afraid, Rape, and Kick questionnair e Answer Date Recorded Within the last year, have y ou been afraid of your partner or ex-partner? No 07/30/2023 Within the last year, have y ou been humiliated or emotionally abused in other ways by your partner or ex-partner? No Within the last year, have y ou been kicked, hit, slapped, or otherwise physically hurt by your partner or ex-partner? No 07/30/2023 Within the last year, have y ou been raped or forced to have any kind of sexual activity by your partner or ex-partner? No 07/30/2023 Social Connection and Isolat ion Panel [NHANES] Answer Date Recorded In a typical week, how many times do you talk on the phone with family, friends, or neighbors? More than three times a week 07/30/2023 How often do you get togethe r with friends or relatives? More than three times a week 07/30/2023 How often do you attend chur or anglican services? 1 to 4 times per year 07/30/2023 Do you belong to any clubs o r organizations such as jehovah's witness groups, unions, fraternal or athletic groups, or school groups? No 07/30/2023 How often do you attend meet ings of the clubs or organizations you belong to? Never 07/30/2023 Are you , , di vorced, , never , or living with a partner? 07/30/2023 AUDIT-C Answer Date Recorded Q1: How often do you have a drink containing alc ohol? Monthly or less 07/30/2023 Q2: How many drinks containi ng alcohol do you have on a typical day when you are drinking? 1 or 2 07/30/2023 Q3: How often do you have si x or more drinks on one occasion? Never 07/30/2023 Overall Financial Resource Strain (CARDIA) Answe r Date Recorded How hard is it for you to pa y for the very basics like food, housing, medical care, and heating? Not hard at all 07/30/2023 PHQ-2 Answer Date Recorded Patient Health Questionnaire-2 Score 0 07/30/2023 [facility] Occupat ional Health - Occupational Stress Questionnaire Answer Date Recorded Do you feel stress - tense, restless, nervous, or anxious, or unable to sleep at night because your mind is troubled all the time - these days? Not at all 07/30/2023 Exercise Vital Sign Answer Date Recorde d On average, how many days pe r week do you engage in moderate to strenuous exercise (like a brisk walk)? 0 days 07/30/2023 On average, how many minutes do you engage in exercise at this level? 0 min 07/30/2023 Hunger Vital Sign Answer Date Recorded Within the past 12 months, y ou worried that your food would run out before you got the money to buy more. Never true 07/30/19 24 Within the past 12 months, t he food you bought just didn't last and you didn't have money to get more. Never true 07/30/2023 PRAPARE - Transportation Answer Date Re corded In the past 12 months, has l ack of transportation kept you from medical appointments or from getting medications? No 07/04 In the past 12 months, has l ack of transportation kept you from meetings, work, or from getting things needed for daily living? No 07/30/2023 Housing Stability Vital Sign Answer Jose e Recorded In the last 12 months, was t here a time when you were not able to pay the mortgage or rent on time? No 07/30/2023 In the last 12 months, how many places have you lived? 1 07/30/2023 In the last 12 months, was t here a time when you did not have a steady place to sleep or slept in a group home (including now)? No 07/30/2023 Comments No Sex and Gender Information Value Date Recorded Sex Assigned at Female 11/21/2023 12:18 PM CDT Legal Sex Female 7:09 PM CDT Gender Identity Female 11/21/2023 12:18 PM CDT Sexual Orientation Not on file Last Filed Vital Signs Vital Sign Reading Time Taken Comments Blood Pressure 155/85 04/15/2024 2:01 PM CDT Pulse 62 04/15/2024 1:34 PM CDT Temperature 36.1 C (96.9 F) 04/15/2024 1:34 PM CDT Respiratory Rate 18 02/04/2024 4:08 PM CDT Oxygen Saturation 97% 04/15/2024 1:34 PM CDT Inhaled Oxygen Concentration - - Weight 64.9 kg (143 lb 1.6 oz) 04/15/2024 1:34 P M CDT Height 152.4 cm (5') 04/15/2024 1:34 PM CDT Body Mass Index 27.95 04/15/2024 1:34 PM CDT Plan of Treatment Upcoming Encounters Date Type Department Care Team (Late st Contact Info) Description 10/15/2024 1:40 PM CDT Office Visit [facility]pec[facility] - [facility] [address], [address] [place] [address] Tony Saldivar MD [address] [facility] [place] [place] [address] 11/18/2024 8:00 AM CDT Appointment [facility] [address] [place] [address] Martin Garcia MD [facility]. [facility] [address] [place] [address] 11/18/2024 8:30 AM CDT Appointment [facility] [address] [place] [address] Martin Garcia MD [facility]. [facility] [address] [place] [address] 11/20/2024 10:00 AM CDT [facility] [address] [place] [phone] Martin Garcia MD [facility]. [facility] [address] [place], [place] [address] Health Maintenance Due Date Last Done Comments Colorectal Cancer Screening Colonoscopy (10 Years) 1950 Hepatitis C 1968 DTaP, Tdap and Td Vaccines ( 1 - Tdap) 1969 RSV Immunization or 60+ Years (1 - Risk 60-74 years 1-dose series) 2010 Annual Medicare Wellness Visit 10/17/2015 Zoster Vaccines (2 of 3) 04/23/2016 02/27/2016 Lung Cancer Screening 03/12/2022 03/12/2021 COVID-19 Vaccine (2023-2 5 season) 2024 04/26/2021, 09/18/2020, 08/28/2020 Influenza Adult (#1) 2024 03/14/2018, 03/08/2017, 05/05/2016 PHQ-2 (Physician Samish) 07/03/2024 07/30/2023 PHQ-2 (Physician Samish) 07/30/2024 07/30/2023 Mammogram Screening 04/17/2026 04/17/2024, 02/26/2024, 04/19/2019 Pneumococcal Vaccine: 65+ Years Completed 03/08/2017, 02/27/2016 Dexa Scan (General) Completed 02/26/2024 Meningococcal B Vaccine Aged Out No l onger eligible based on patient's age to complete this topic Meningococcal Vaccine Aged Out No abram jeremiah eligible based on patient's age to complete this topic RSV Immunizations Under 20 Months Aged Out No longer eligible b ased on patient's age to complete this topic Goals Goal Patient Goal Type Associated Problems Recent Progress Patient-Stated? Author Patient will return to prior living situation and remain independent in ADLs upon discharge from hospital General Leslie Hernandez, RN Medical Devices Implanted Type Area Farm Equipment Engineer Device Identifier Shelf Expiration Date Model / Serial / Lot Lens Lens Bilateral: Eye Stent-08/15/2012 Implanted:08/15 by Jose Cruz Pedro MD (Quantity not on file) Stent Heart / [id number] / [id number] Explanted Type Area Farm Equipment Engineer Device Identifier Shelf Expiration Date Model / Serial / Lot Patch Cv Thk.36mm; Ulthn; Taper 6x.3in Knit; - [id number] Explanted:Qty : 1 on 05/13/2021 by Emmanuel Thomas MD at [facility] Graft Left: Carotid [employer] [id number] 09/30/2025 [id number] / [id number] Description:Left carotid art babak patch Shunt Cantu F3 Carotid With T-Port - [id number] Explanted:Qty : 1 on 05/13/2021 by Emmanuel Thomas MD at [facility] Shunt Left: Carotid [facility] [id number] 08/30/2025 [id number] / 0000 / [id number] Procedures Procedure Name Priority Date/Time Associated Diagnosis Comments MG DIAG W FLAKITO LT DIGI Routine 04/17/2024 1:30 PM CDT Abnormal mammogram BONE DENSITY/DEXA Routine 02/26/2024 2:1 9 PM CDT Resistant ovary syndrome CT CHEST W CON Routine 03/12/2021 1:[address] scan of lung from Last 3 Months or Most Recently Relevant to Health Maintenance Results * MG DIAG W FLAKITO LT DIGI (04/17/2024 1:30 PM CDT) Anatomical Region Laterality Modality Breast Left Mammography, Rad iographic Imaging 04/17/2024 1:05 PM CDT Impressions 04/17/2024 1:46 PM CDT =====IMPRESSION:===== Findings suspicious for probably benign mass. This is possible 2 adjacent or possible septated cyst in the left breast. Assessment: ACR BI-RADS 3 - PROBABLY BENIGN FINDING(S) - SHORT INTERVAL FOLLOW- UP SUGGESTED Recommendation: 1Short interval follow-up in 6 months. Left COMMENTS: Patient was informed of these findings, including the need for short interval follow up; by me, in person, at time of present study. Notification was performed in the presence of Janina soil technologist. Ordered By: SLIME NAYLOR Interpreted By: Eduar Mejia MD, 04/17/2024 1:05 PM Narrative 04/17/2024 1:46 [place] [address] EXAMINATION: Digital left diagnostic mammogram with 3-D tomography and left breast ultrasound [id number] EXAM DATE/TIME: 04/17/2024 12:30 PM REASON FOR EXAM: Abnormal screening mammogram COMPARISON: 04/19/2019, 02/26/2024, 05/02/2011 TECHNIQUE: Digital diagnostic mammography of the left breast was performed with 3-D tomography. This study was read with the assistance of a computer-aided detection system. And left breast ultrasound TISSUE DENSITY: There are scattered areas of fibroglandular density. FINDINGS: Mass is confirmed in the upper outer left breast. This measures approximately 4 mm. Punctate peripheral calcification is noted. There is no spiculation seen on mammography. Ultrasound examination shows correlate is suspected at the 2:00 position, 9 cm from the nipple. This measures 0.3 x 0.3 x 0.3 cm. This has smooth borders. No posterior shadowing or spiculation is seen. Internal septum is possible. No color flow enhancement is noted. us Slime Naylor PA-C MAMMO Final Resu lt * BONE DENSITY/DEXA (02/26/2024 2:19 PM CDT) Anatomical Region Laterality Modality Bone Bone Density 02/26/2024 2:27 PM CDT Impressions 02/26/2024 2:28 PM CDT IMPRESSION: WHO Classification: Osteoporotic. Follow-up in one year. FRAX Score: Not reported as some T-scores are below -2.5. Ordered By: SLIME NAYLOR Interpreted By: Eliud Aanya MD, 02/26/2024 2:27 PM Narrative 02/26/2024 2:28 PM CDT Examination: Bone Density Axial Exam Date/Time: 02/26/2024 1:55 PM Reason For Exam: OTHER PRIMARY OVARIAN FAILURE Comparison: None Findings: DEXA bone densitometry The bone mineral density (BMD) was determined by dual-energy x-ray absorptiometry, the results are as follows: AP Lumbar Spine L1 through L4 BMD Patient (GM/SQCM): 0.853 T-Score (Standard deviations from young adult peak bone density): -1.8 Right femoral neck: BMD Patient (GM/SQCM): 0.549 T-Score (Standard deviations from young adult peak bone density): -2.7 Total right femur: BMD Patient (GM/SQCM): 0.728 T-Score (Standard deviations from young adult peak bone density): -1.8 Procedure Note Eliud Anaya MD - 02/26/2024 Examination: Bone Density Axial Exam Date/Time: 02/26/2024 1:55 PM Reason For Exam: OTHER PRIMARY OVARIAN FAILURE Comparison: None Findings: DEXA bone densitometry The bone mineral density (BMD) was determined bydual-energy x-ray absorptiometry, the results are as follows: AP Lumbar Spine L1 through L4 BMD Patient (GM/SQCM): 0.853 T-Score (Standard deviations from young adult peak bonedensity): -1.8 Right femoral neck: BMD Patient (GM/SQCM): 0.549 T-Score (Standard deviations from young adult peak bonedensity): -2.7 Total right femur: BMD Patient (GM/SQCM): 0.728 T-Score (Standard deviations from young adult peak bonedensity): -1.8 IMPRESSION: WHO Classification: Osteoporotic. Follow-up in one year. FRAX Score: Not reported as some T-scores are below -2.5. Ordered By: SLIME NAYLOR Interpreted By: Eliud Anaya MD, 02/26/2024 2:27 PM us Slime Naylor PA-C DEXA Final Resu lt * CT CHEST W CON (03/12/2021 1:23 PM CDT) Anatomical Region Laterality Modality Chest Computed Tomogra phy 03/12/2021 2:26 PM CDT Impressions 03/12/2021 2:30 PM CDT FINDINGS AND IMPRESSION: 1. Trachea and airway: No endotracheal lesions. 2. Pleural space: No pleural effusion or pneumothorax. 3. Lung parenchyma: Stable 10 mm pulmonary nodule left lung base. The lungs are otherwise clear. 4. Mediastinum: The visible lymph nodes do not appear pathologically enlarged. 5. Axillary and supraclavicular soft tissues: The visible lymph nodes do not appear pathologically enlarged. 6. Cardiovascular: No aneurysmal dilation. Mild coronary artery calcifications 7. Partially visualized upper abdomen: Hepatic steatosis versus false positive due to early arterial phase. 8. Bones: No significant bony abnormalities. Voice recognition software utilized. Referred By: PRIYANK STYLES Interpreted By: Cyrus Roberts, 03/12/2021 2:26 PM Narrative 03/12/2021 2:30 PM CDT IMAGING STUDIES: CT CHEST W CON DATE: 03/12/2021 12:28 PM CLINICAL HISTORY: Abnormal CT scan of lung . Abnormal chest radiograph performed at an outside institution COMPARISON STUDIES: CT chest 08/06/2019, 07/24/2012. TECHNIQUE: Axial images were acquired from the thoracic inlet to the upper abdomen after administration of intravenous contrast. Sagittal and coronal reconstructions were evaluated. Radiation dose reduction technique was utilized. CONTRAST: 75mL Isovue-370 IV Procedure Note Cyrus Roberts MD - 03/12/2021 IMAGING STUDIES: CT CHEST W CON DATE: 03/12/2021 12:28 PM CLINICAL HISTORY: Abnormal CT scan of lung . Abnormal chest radiographperformed at an outside institution COMPARISON STUDIES: CT chest 08/06/2019, 07/24/2012. TECHNIQUE: Axial images were acquired from the thoracic inlet to theupper abdomen after administration of intravenous contrast. Sagittal andcoronal reconstructions were evaluated. Radiation dose reductiontechnique was utilized. CONTRAST: 75mL Isovue-370 IV FINDINGS AND IMPRESSION: 1. Trachea and airway: No endotracheal lesions. 2. Pleural space: No pleural effusion or pneumothorax. 3. Lung parenchyma: Stable 10 mm pulmonary nodule left lung base. Thelungs are otherwise clear. 4. Mediastinum: The visible lymph nodes do not appear pathologicallyenlarged. 5. Axillary and supraclavicular soft tissues: The visible lymph nodes donot appear pathologically enlarged. 6. Cardiovascular: No aneurysmal dilation. Mild coronary arterycalcifications 7. Partially visualized upper abdomen: Hepatic steatosis versus falsepositive due to early arterial phase. 8. Bones: No significant bony abnormalities. Voice recognition software utilized. Referred By: PRIYANK STYLES Interpreted By: Cyrus Roberts, 03/12/2021 2:26 PM Priyank Styles MD CT Final Result from Last 3 Months or Most Recently Relevant to Health Maintenance Additional Health Concerns Infection Onset Date Last Indicated C. difficile 07/13/2021 07/13/2021 Insurance MEDICARE [facility] Advance Directives * Full Code (Latest Code Status on File) Date Activated Date Inactivated Comments 07/30/2023 2:56 PM 08/01/2023 2:44 PM * Full Code Date Activated Date Inactivated Comments 05/15/2021 7:18 AM 05/16/2021 12:53 PM * Full Code Date Activated Date Inactivated Comments 05/04/2021 12:39 PM 05/07/2021 4:25 PM Care Teams Clinical Project Assistant Relationship Specialty Start Date End Date Slime Naylor PA-C [address] [place] [address] [address] [place] [address] PCP - General PHYSICIAN PIPE BUFFER 02/09/22 Jose Cruz Pedro MD [address] [facility] [address] [address] CARDIOVASCULAR DISEASE 05/12/21
--- OUTSIDE RECORDS SUMMARY | 2024-08-14 13:23 | XMS_ITS | Encounter Summary ---
Author Organization [facility] Address [address] [place] [address] Care Team Providers Care Design Project Manager Name Role Phone Priyank Diaz MD Primary Care Provider Fercho Mccallum MD Primary Care Provider [phone] Encounter Details Date Type Department Care Team ([facility] Contact Info) Description 10/03/2016 Orders Only [facility] ProviderNegar MD [address] [place] [id number] Social History Tobacco Use Types Packs/Day Years Used Date Smoking Tobacco: Never Assessed Comments:Smoking History Pac ks/day: 1 Packs Alcohol Use Standard Drinks/Week Comments No 0 (1 standard drink = 0.6 oz pur e alcohol) Comments Unknown Sex and Gender Information Value Date Recorded Sex Assigned at Not on file 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 Historical Provider [facility] RACHAEL DOTY Final Result documented in this encounter Visit Diagnoses Not on filedocumented in this encounter Care Teams Design Project Manager Relationship Specialty Start Date End Date Priyank Diaz MD [address] [place] [id number] PCP - General 09/30/16 04/18/22 Fercho Mccallum MD [address] [place] [id number] PCP - General Family Medicine 04/19/22 documented as of this encounter
--- NOTE | 2024-08-15 13:58 | REHSTMBS ---
Assessment and note entered by Alexia Main, PLANT GUIDE Modified Barium Swallow Evaluation Feeding Type Recommended Oral Food Consistency Regular, Level 7 Liquid Consistency Thin (0) ST Clinical Summary The above pleasant and cooperative pt was seen for an outpatient modified barium swallow. She was alert & oriented, and able to follow commands. She is on a regular diet but watches what she eats as she reports difficulty in that her throat always feels tight when swallowing or some solid foods cause coughing and choking. She states that at times she has lost her voice and has even vomited (phlegm). Pt saw an ENT but was told it was a normal exam. Oral mucosa is normal; natural dentition is in good condition; Informal oral peripheral exam revealed lingual and labial structures to be normal. She was able to dry swallow on command and exhibited a strong cough and clear vocal quality. The patient was seated for a lateral view and presented with 5cc of thin liquid barium via spoon , pudding consistency barium via a spoon, cracker coated with barium pudding via spoon, and uncontrolled thin liquid barium. This was presented via a cup & straw. Oral preparatory and oral phase symptoms: none. Pharyngeal phase symptoms: none. Esophageal stage symptoms: small cricopharyngeal bar but it was without effect. No obstruction, residue, or aspiration occurred. Impressions: Normal swallow Ability No further ST is warranted at this time.
== END 2024-08-14 13:16 | disposition home or self-care (01) ==
PROVIDERS: PCP Physician Assistant Medical; Visit Provider Speech-Language Pathologist
DX: R13.10 Dysphagia, unspecified (principal); R05.9 Cough, unspecified
CPT/HCPCS: 92611

== ENCOUNTER 2024-08-22 00:33 | Day surgery (SDC) | payer MEDICARE, SELFPAY ==
[2024-08-14 15:46] VITALS: BMI 29.7
--- NOTE | 2024-08-15 11:41 | PC.NURSE ---
Spoke with patient regarding medication Plavix. Patient verbalizes understanding that the last dose is to be taken on 08/14/2024 and the Endoscopist will instruct them when to restart after the procedure.
[2024-08-22] VITALS (15 sets, daily range): BP systolic 136–205; BP diastolic 67–114; PULSE 67–80; RESP 18–20; TEMP 35.9; O2SAT 97–100
--- OUTSIDE RECORDS SUMMARY | 2024-08-22 00:36 | XMS_ITS | Referral Summary ---
Author Organization [facility] Address [address] [place] [address] Care Team Providers Care Conditioner Tumbler Name Role Phone Unavailable Primary Care Provider Unavailabl e Source Comments [facility],non-owned Affiliates and Associated Physician Practices is amultiple site organization consisting of ambulatory clinics and hospital sitesin [place], [place], [place] and [place]. This disclosure is being madepursuant to the Care Everywhere program and may not contain all information available regarding this patient. Last updated 18.[facility] Active Problems Problem Noted Date Diagnosed Date Cerebrovascular accident (CVA) 05/03/2021 Social History Tobacco Use Types Packs/Day Years Used Date Smoking Tobacco: Never Assessed Sex and Gender Information Value Date Recorded Sex Assigned at Not on file Gender Identity Not on file Sexual Orientation Not on file Plan of Treatment Not on file
--- OUTSIDE RECORDS SUMMARY | 2024-08-22 00:36 | XMS_ITS | Clinical Summary ---
Author Organization [facility] [address] Address [address] [place] [address] Care Team Providers Care Technology Risk Intern Name Role Phone Fercho Mccallum MD Primary Care Provider [phone] Allergies Active Allergy Reactions Criticality Noted Date [...] Diagnosed Date Coronary artery disease invo lving hoopa coronary artery of hoopa heart without angina pectoris 06/22/2017 History of coronary artery stent placement 06/22 Encounters Date Type Department Care Team Description 08/14/2024 Telephone [facility] Cardiology [address] [place] [address] Jose Cruz Pedro MD from Last 3 Months Medical History Medical History Date Comments Hypertension [...] on file 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
--- OUTSIDE RECORDS SUMMARY | 2024-08-22 00:36 | XMS_ITS | Referral Summary ---
Author Organization [facility] [place] [address] [facility] [address] Address [address] [place] [address] Care Team Providers Care Ad Writer Name Role Phone Fercho Mccallum MD Primary Care Provider [phone] Encounters Date Type Department Care Team Description 08/14/2024 Telephone [facility] Cardiology [address] [place] [address] Jose Cruz Pedro MD from Last 3 Months Allergies Active Allergy Reactions Criticality Noted Date [...] Diagnosed Date Coronary artery disease invo lving qagan tayagungin coronary artery of qagan [place]agung[place] heart without angina pectoris 06/22/2017 History of [...] on file 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
--- OUTSIDE RECORDS SUMMARY | 2024-08-22 00:36 | XMS_ITS | Clinical Summary ---
Author Organization [facility] Address [address] [place] [address] Care Team Providers Care Private Pilot Name Role Phone Unavailable Primary Care Provider Unavailabl e Source Comments [facility],non-owned Affiliates and Associated Physician Practices is amultiple site organization consisting of ambulatory clinics and hospital sitesin [place], [place], [place] and [place]. This disclosure is being madepursuant to the Care Everywhere program and may not contain all information available regarding this patient. Last updated 18.[facility] Active Problems Problem Noted Date Diagnosed Date [...]
--- OUTSIDE RECORDS SUMMARY | 2024-08-22 00:36 | XMS_ITS | Patient Health Summary ---
Author Organization [facility] Address [address] [place] [address] Care Team Providers Care Mail Courier Name Role Phone Unavailable Primary Care Provider Unavailabl e Note from [facility],non-owned Affiliates and Associated Physician Practices is amultiple site organization consisting of ambulatory clinics and hospital sitesin [place], [place], [place] and [place]. This disclosure is being madepursuant to the Care Everywhere program and may not contain all information available regarding this patient. Last updated 18.[facility] Active Problems Problem Noted Date Diagnosed Date Cerebrovascular accident (CVA) 05/03/2021 Social History Tobacco Use Types Packs/Day Years Used Date Smoking Tobacco: Never Assessed Sex and Gender Information Value Date Recorded Sex Assigned at Not on file Gender Identity Not on file Sexual Orientation Not on file
--- OUTSIDE RECORDS SUMMARY | 2024-08-22 00:37 | XMS_ITS | Encounter Summary ---
Author Organization [facility] Address [address] [place] [address] Care Team Providers Care Armor Senior Sergeant Name Role Phone Priyank Diaz MD Primary Care Provider [phone] Fercho Mccallum MD Primary Care Provider [phone] Encounter Details Date Type Department Care Team ([facility] [address] Contact Info) Description 10/03/2016 Orders Only [facility] ProviderNegar MD [address] [place] [address] Social History Tobacco Use Types Packs/Day Years Used Date Smoking Tobacco: Never Assessed Comments:Smoking History Pac ks/day: 1 Packs Alcohol Use Standard Drinks/Week Comments No 0 (1 standard drink = 0.6 oz pur e alcohol) Comments Unknown Sex and Gender Information Value Date Recorded Sex Assigned at Not on file 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
--- OUTSIDE RECORDS SUMMARY | 2024-08-22 00:37 | XMS_ITS | Encounter Summary ---
Author Organization [facility] Address [address] [place] [address] Care Team Providers Care French Pastry Cook Name Role Phone Fercho Mccallum MD Primary Care Provider [phone] Encounter Details Date Type Department Care Team (Late st Contact Info) Description 08/14/[address] 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 INE BENDER * Telephone Encounter - Alice Lam - 08/14/2024 2:09 PM CST Ana from [facility] states she faxed a cardiac clearance request on 08/12. Pt is scheduledon 08/22 and last dose would be today 08/14. Requesting call back with an update. Contact: INE BENDER documented in this encounter Plan of Treatment Not on file documented as of this encounter Visit Diagnoses Not on filedocumented in this encounter Care Teams French Pastry Cook Relationship Specialty Start Date End Date Fercho Mccallum MD [address] [place] [id number] PCP - General Family Medicine 04/19/22 documented as of this encounter
--- OUTSIDE RECORDS SUMMARY | 2024-08-22 00:37 | XMS_ITS | Clinical Summary ---
Author Organization [facility] Address [address] [place] [address] Care Team Providers Care Leno Sewer Name Role Phone Jose Cruz Pedro MD Unavailable [phone] Slime Naylor PA-C Primary Care Provider [phone] Allergies Active Allergy Reactions Criticality Noted Date [...] artery disease of n ative artery of [place] heart with stable angina pectoris 05/06/2021 Assessment & Plan (05/06/2021 12:23 AM CDT): Given that she has symptoms of chest discomfort, I recommended she undergo nuclear stress testing, which was within normal limits. Continue clopidogrel. Primary hypertension 05/06/2021 Overview (05/06/2021): Continue losartan Assessment & Plan (05/06/2021 12:25 AM CDT): Continue losartan Stroke (cerebrum) ([facility]) 05/04/2021 History of coronary artery stent placement 06/22 Stye 03/05/2012 Immunizations Name Administration Dates Next Due Influenza Adult (Generic) 03/14/2018,03/08/2017, 05/05/2016 Pneumococcal (Pneumovax 23) 03/08/2017 Pneumococcal (Prevnar 13) 02/27/2016 Zoster (Zostavax) 11084 Unt/0.65Ml 02/27/2016 Family History Medical History Relation [...] rarely, once a year has a drink [facility] Utilities Answer Date Recorded In the past 12 months has th e [place], gas, oil, or water [employer] threatened to shut off services in your [...] How often do you attend chur or orthodox services? 1 to 4 times per year 07/30/2023 Do you belong to any clubs o r organizations such as congregational groups, unions, fraternal or athletic groups, or [...] Recorded Patient Health Questionnaire-2 Score 0 07/30/2023 [facility] [place] [facility] Occupat ional Health - Occupational Stress [...] place to sleep or slept in a prison (including now)? No 07/30/2023 Comments No Sex [...] Description 10/15/2024 1:40 PM CDT Office Visit [facility]is[facility]ialty [facility] - [facility] [address], [address] [place] [address] Tony Saldivar MD [address] [facility] [place] [address] 11/18/2024 8:00 AM CDT Appointment [facility] [address] [place] [address] Martin Garcia MD [facility]. [facility] [address] [place] [address] 11/18/2024 8:30 AM CDT Appointment [facility] [address] [place] [address] Martin Garcia MD [facility]. [facility] [address] [place] [address] 11/20/2024 10:00 AM CDT [facility] [address] [place] [address] Martin Garcia MD [facility]. [facility] [address] [place], [place] [address] Health Maintenance Due Date Last Done Comments [...] (#1) 2024 03/14/2018, 03/08/2017, 05/05/2016 PHQ-2 (Physician Ayer) 07/03/2024 07/30/2023 ASCVD LDL 07/31/2024 07/31/2023, 05/04/2021 Mammogram Screening 04/17/2026 04/17/2024, 02/26/2024, 04/19/2019 Pneumococcal [...] in ADLs upon discharge from hospital General No Leslie Foreman, RN Medical Devices Implanted Type Area Municipal Firefighter Device Identifier Shelf Expiration Date Model / Serial / Lot Lens Lens Bilateral: Eye Stent-08/15/2012 Implanted:08/15 by Jose Cruz Pedro MD (Quantity not on file) Stent Heart / [id number] / [id number] Explanted Type Area Municipal Firefighter Device Identifier Shelf Expiration Date Model / Serial / Lot Patch Cv Thk.36mm; Ulthn; Taper 6x.3in Knit; - [id number] Explanted:Qty : 1 on 05/13/2021 by Emmanuel Thomas MD at [facility] Graft Left: Carotid [employer] [id number] 09/30/2025 [id number] / [id number] Description:Left carotid art babak patch Shunt Cantu F3 Carotid With T-Port - [id number] Explanted:Qty : 1 on 05/13/2021 by Emmanuel Thomas MD at [facility] Shunt Left: Carotid [facility] [id number] 08/30/2025 [id number] / [id number] / [id number] Procedures Procedure Name Priority Date/Time Associated Diagnosis Comments MG DIAG W FLAKITO LT DIGI Routine 04/17/2024 1:30 PM CDT Abnormal mammogram BONE DENSITY/DEXA Routine 02/26/2024 2:1 9 PM CDT Resistant ovary syndrome LIPID PANEL Routine 07/31/2023 5:[address] CHEST W CON Routine 03/12/2021 1:23 [...] was performed in the presence of Janina chemistry technologist. Ordered By: SLIME NAYLOR Interpreted By: Eduar Mejia MD, 04/17/2024 1:05 PM Narrative 04/17/2024 1:46 PM CDT [facility] [address] [place] [address] EXAMINATION: Digital left diagnostic mammogram with 3-D tomography and left breast ultrasound [id number] EXAM DATE/TIME: 04/17/2024 12:30 PM REASON FOR [...] By: Eliud Anaya MD, 02/26/2024 2:27 PM Narrative 02/26/2024 2:28 [...] MD, 02/26/2024 2:27 PM us Slime Naylor PAJaime DEXA Final Resu lt * (ABNORMAL) LIPID PANEL (07/31/2023 5:15 AM [facility]) CHOLESTEROL 169 <200.0 MG/DL 07/31/2023 6:[address] [facility] TRIGLYCERIDES 117 <150 MG/DL 07/31/2023 6:[address] [facility] HDL 40(L) >40.0 MG/DL 07/31/2023 6:[address] [facility] LDL (CALCULATED) 106(H) <100 MG/DL 07/31/2023 6:[address] [facility] NON HDL CHOLESTEROL 129 <130 MG/DL 07/31/2023 6:[address] [facility] CHOL/HDL RATIO 4.2 0.0 - 4.5 07/31/2023 6:[address] [facility] VLDL CALCULATION 23 5 - 55 MG/DL 07/31/2023 6:[address] [facility] LIPID INTERPRETATION 07/31/2023 6:[address] [facility] Comment: [facility] CONCENSUS REPORT RECOMMENDATIONS: ADULT CHILD LOW RISK: CHOLESTEROL <200 <170 TRIGLYCERIDE <150 --- HDL >=60 --- LDL <100 <110 BORDERLINE: CHOLESTEROL 200-239 170-199 TRIGLYCERIDE 150-199 --- HDL 40-59 --- LDL 100-159 110-129 HIGH RISK: CHOLESTEROL >=240 >=200 TRIGLYCERIDE >=200 --- HDL <40 --- LDL >=160 >=130 07/31/2023 5:15 AM DRAFTER CARTOGRAPHIC Moo England MD LABORATORY Final Result [facility] [address] [place] [address], [place] [phone] * CT CHEST W CON (03/12/2021 1:23 [...] Interpreted By: Cyrus Roberts, 03/12/2021 2:26 PM us Priyank Styles MD CT Final Result from Last 3 Months or Most Recently Relevant to Health Maintenance Additional Health Concerns Infection Onset Date Last Indicated C. difficile 07/13/2021 07/13/2021 Insurance MEDICARE [facility] Advance Directives * Full Code (Latest Code Status on File) Date Activated Date Inactivated Comments 07/30/2023 2:56 PM 08/01/2023 2:44 PM * Full Code Date Activated Date Inactivated Comments 05/15/2021 7:18 AM 05/16/2021 12:53 PM * Full Code Date Activated Date Inactivated Comments 05/04/2021 12:39 PM 05/07/2021 4:25 PM Care Teams Leno Sewer Relationship Specialty Start Date End Date Slime Naylor PA-C [facility] [place] [address] PCP - General PHYSICIAN PARKING GARAGE MANAGER 02/09/22 Jose Cruz Pedro MD [address] [address] CARDIOVASCULAR DISEASE 05/12/21
[2024-08-22] MEDS: LACTATED RINGERS 1,000 ML 150 ML IV CONT (10:36)
--- NOTE | 2024-08-22 11:34 | PM.IMHP ---
H&P: HPI History of Present Illness Date/Time: 08/22/24 11:34 Chief Complaint: Dysphagia Narrative: the patient has a 2 year history of dysphagia mainly to solids, describing a sensation of food getting stuck in the upper part of her throat. This is associated with severe hoarseness. She had an ENT evaluation which was unremarkable, and a modified barium swallow done last week which was interpreted as normal. She is here for EGD. She states that years ago she had an endoscopy with dilatation. Review of Systems Review of Systems: All systems reviewed & are unremarkable except as noted in HPI and below PMFSH Past Medical History Medical History Cough Dry eyes, bilateral Stroke Anemia Depression Anxiety Hypothyroidism Back pain Hemorrhoids Gastroesophageal reflux disease DYSPHAGIA, ESOPHAGEAL STRICTURE- DILATED IN PAST COPD (chronic obstructive pulmonary disease) HX INTERMEDIATE SMOKER HTN (hypertension) Hypercholesterolemia CAD (coronary artery disease) 1 STENT 2012 Hx of transient ischemic attack (TIA) X2 Surgical History Surgical History History of hysterectomy still has ovaries History of left-sided carotid endarterectomy Hx of cardiac catheterization 1 2012 Family History Family History Sibling Depression Cerebrovascular accident Thyroid disorder Other Cancer Social History Social History Social History: 07/03/24 very confident with medical form 08/06/24 patient declined SDOH Smoking packs per day: 2 Smoking cigarettes per day: 40.0 Years smoked: 60 Smoking pack-years: 120.00 Smoking status: Former smoker Second hand tobacco smoke exposure: No Alcohol intake: current Substance use: never Substance use type: does not use Do You Feel Safe in your Home?: Yes Lack of Transportation: No Lack of Food: Never True Current Housing: I Have Housing Concerned About Future Housing: No Difficulty Paying Gas/Electric Bills: No Difficulty Paying for Meds: No Currently Unemployed: No Education: High School Diploma/GED Difficulty w/ Childcare or Family Care: No Living arrangements: with family Occupation/Education: occupation Gender identity (if verbalized by the patient): Female Sexual Orientation (if Verbalized by the Patient): Straight or Heterosexual Meds Home Medications and Allergies Home Medications ?Medication ?Instructions ?Recorded ?Confirmed ?Type cholecalciferol (vitamin D3) 50 50 mcg PO HS 01/17/20 08/22/24 History mcg (2,000 unit) capsule (Vitamin D3) ferrous gluconate 324 mg (37.5 mg 324 mg PO HS 01/17/20 08/22/24 History iron) tablet vitamin B complex (B 1 tablet PO HS 01/17/20 08/14/24 History Complex-Vitamin B12 tablet) coenzyme Q10 200 mg capsule 200 mg PO DAILY 03/25/22 08/22/24 History Lactobacills gasseri-Bifidobac 1 cap PO .qd #30 caps 04/07/22 08/22/24 Rx bifidum,longum 1.5 billion cell capsule ([employer]) aspirin 81 mg tablet,delayed 81 mg PO DAILY 08/08/23 08/22/24 History release nitroglycerin 0.4 mg sublingual 0.4 mg sublingual BID PRN Chest 08/08/23 08/14/24 Rx tablet Pain #25 tabs ezetimibe 10 mg tablet (Zetia) 10 mg PO DAILY 01/09/24 08/22/24 History clopidogrel 75 mg tablet 75 mg PO DAILY #90 tabs 02/20/24 08/22/24 Rx cyclobenzaprine 5 mg tablet 5 mg PO TID PRN muscle spasm #30 03/25/24 08/22/24 Rx tabs levothyroxine 50 mcg tablet 50 mcg PO DAILY #90 tabs 04/19/24 08/14/24 Rx pravastatin 40 mg tablet 40 mg PO QHS #90 tabs 05/31/24 08/22/24 Rx levothyroxine 100 mcg tablet 100 mcg PO DAILY #90 tabs 07/11/24 08/22/24 Rx pantoprazole 40 mg tablet,delayed 40 mg PO BID #180 tabs 07/15/24 08/22/24 Rx release lisinopril 20 mg tablet 20 mg PO DAILY #90 tabs 08/05/24 08/22/24 Rx montelukast 10 mg tablet 10 mg PO QHS #90 tabs 08/05/24 08/22/24 Rx fluoxetine 10 mg capsule (Prozac) 10 mg PO DAILY 08/14/24 08/22/24 History mecobalamin (vitamin B12) 1,000 1,000 mcg PO DAILY 08/14/24 08/22/24 History mcg chewable tablet (B12 Active) Allergies Allergy/AdvReac Type Severity Reaction Status Date / Time hydralazine Allergy Intermediate Palpitation Verified 08/22/24 10:24 s adhesive tape AdvReac Mild REDNESS Verified 08/22/24 10:24 clindamycin AdvReac Mild Rash Verified 08/22/24 10:24 Vital Signs Vital Signs - 24 hr 08/22/24 10:27 Temperature 96.7 F L Pulse Rate 80 Respiratory Rate 18 Blood Pressure 151/77 H Pulse Oximetry 97 Oxygen Delivery Room Air Exam Const: General: cooperative and healthy appearing Resp: Effort & Inspection: normal respiratory effort and able to speak in complete sentences Auscultation: clear to auscultation bilaterally Cardio: Rate: regular rate Rhythm: regular rhythm GI: Inspection: normal to inspection GI Palp: No No hepatosplenomegaly present Auscultation: normal bowel sounds Rectal Exam: deferred Skin: General skin exam: normal color Psych: Appearance: grossly normal Mental Status: mental status grossly normal Assessment and Plan Assessment and plan (1) Dysphagia: Code(s): R13.10 - Dysphagia, unspecified Status: Acute Assessment and Plan: The patient is deemed a good candidate for the procedure. Consent signed. Will proceed.
--- NOTE | 2024-08-22 11:43 | P.PNAN_ITS ---
Anes - Initial Pre Proc Eval Procedure: Operation Date: 08/22/24 11:30 Proposed Procedures p Esophagogastroduodenoscopy - Abraham Thompson MD Date/Time: 08/22/24 11:43 Surgeon: Abraham Thompson MD Pre Op Diagnosis: Dysphagia, GERD Patient Data Age: 73 Gender: F Height: 1.52 m Weight: 64.8 kg Last Vital Signs Temp 96.7 F L 08/22/24 10:27 Pulse 80 08/22/24 10:27 Resp 18 08/22/24 10:27 BP 151/77 H 08/22/24 10:27 Pulse Ox 97 08/22/24 10:27 O2 Del Method Room Air 08/22/24 10:27 Allergies Allergy/AdvReac Type Severity Reaction Status Date / Time hydralazine Allergy Intermediate Palpitation Verified 08/22/24 10:24 s adhesive tape AdvReac Mild REDNESS Verified 08/22/24 10:24 clindamycin AdvReac Mild Rash Verified 08/22/24 10:24 Home Medications ?Medication ?Instructions ?Recorded ?Confirmed ?Type cholecalciferol (vitamin D3) 50 50 mcg PO HS 01/17/20 08/22/24 History mcg (2,000 unit) capsule (Vitamin D3) ferrous gluconate 324 mg (37.5 mg 324 mg PO HS 01/17/20 08/22/24 History iron) tablet vitamin B complex (B 1 tablet PO HS 01/17/20 08/14/24 History Complex-Vitamin B12 tablet) coenzyme Q10 200 mg capsule 200 mg PO DAILY 03/25/22 08/22/24 History Lactobacills gasseri-Bifidobac 1 cap PO .qd #30 caps 04/07/22 08/22/24 Rx bifidum,longum 1.5 billion cell capsule (Adomik) aspirin 81 mg tablet,delayed 81 mg PO DAILY 08/08/23 08/22/24 History release nitroglycerin 0.4 mg sublingual 0.4 mg sublingual BID PRN Chest 08/08/23 08/14/24 Rx tablet Pain #25 tabs ezetimibe 10 mg tablet (Zetia) 10 mg PO DAILY 01/09/24 08/22/24 History clopidogrel 75 mg tablet 75 mg PO DAILY #90 tabs 02/20/24 08/22/24 Rx cyclobenzaprine 5 mg tablet 5 mg PO TID PRN muscle spasm #30 03/25/24 08/22/24 Rx tabs levothyroxine 50 mcg tablet 50 mcg PO DAILY #90 tabs 04/19/24 08/14/24 Rx pravastatin 40 mg tablet 40 mg PO QHS #90 tabs 05/31/24 08/22/24 Rx levothyroxine 100 mcg tablet 100 mcg PO DAILY #90 tabs 07/11/24 08/22/24 Rx pantoprazole 40 mg tablet,delayed 40 mg PO BID #180 tabs 07/15/24 08/22/24 Rx release lisinopril 20 mg tablet 20 mg PO DAILY #90 tabs 08/05/24 08/22/24 Rx montelukast 10 mg tablet 10 mg PO QHS #90 tabs 08/05/24 08/22/24 Rx fluoxetine 10 mg capsule (Prozac) 10 mg PO DAILY 08/14/24 08/22/24 History mecobalamin (vitamin B12) 1,000 1,000 mcg PO DAILY 08/14/24 08/22/24 History mcg chewable tablet (B12 Active) Patient hx anesthesia problems: none Family hx anesthesia problems: none Results Review: All pre-operative results and documents have been reviewed as part of the pre- operative evaluation. [facility] Past Medical History Medical History Cough Dry eyes, bilateral Stroke Anemia Depression Anxiety Hypothyroidism Back pain Hemorrhoids Gastroesophageal reflux disease DYSPHAGIA, ESOPHAGEAL STRICTURE- DILATED IN PAST COPD (chronic obstructive pulmonary disease) HX HALFWAY SMOKER HTN (hypertension) Hypercholesterolemia CAD (coronary artery disease) 1 2012 Hx of transient ischemic attack (TIA) X2 Surgical History Surgical History History of hysterectomy still has ovaries History of left-sided carotid endarterectomy Hx of cardiac catheterization 1 2012 Family History Family History Sibling Depression Cerebrovascular accident Thyroid disorder Other Cancer Social History Social History Social History: 07/03/24 very confident with medical form 08/06/24 patient declined SDOH Smoking packs per day: 2 Smoking cigarettes per day: 40.0 Years smoked: 60 Smoking pack-years: 120.00 Smoking status: Former smoker Second hand tobacco smoke exposure: No Alcohol intake: current Substance use: never Substance use type: does not use Do You Feel Safe in your Home?: Yes Lack of Transportation: No Lack of Food: Never True Current Housing: I Have Housing Concerned About Future Housing: No Difficulty Paying Gas/Electric Bills: No Difficulty Paying for Meds: No Currently Unemployed: No Education: High School Diploma/GED Difficulty w/ Childcare or Family Care: No Living arrangements: with family Occupation/Education: occupation Gender identity (if verbalized by the patient): Female Sexual Orientation (if Verbalized by the Patient): Straight or Heterosexual Anes - Eval Final PreProcedure Day of Procedure 08/22/24 11:43 Patient weight: overweight Lungs: normal air movement Airway: Mallampati scale class II Neurological: alert and oriented Last oral intake: >/= 8 hours ASA classification: III Emergent: no Anesthetic plan: proceed Anesthesia type and monitoring: general GIVS and standard monitoring Results Review: All pre-operative results and documents have been reviewed as part of the pre- operative evaluation. HTN,,hx PTCA 2012, L CEA and TIA at that time, no residual, ex smoker quit 2017, now w cough/some dysphagia. Informed Consent: The patient's anesthetic plan and its attendant risks and benefits were discussed with the patient/family/POA. Questions were solicited and answers provided to the satisfaction of the patient/family/POA.
[2024-08-22] MEDS: SIMETHICONE ORAL SUSPENSION 20 MG/0.3 ML 30 ML BOTTLE 0.6 ML IRRIGATION (11:50)
[2024-08-22] MEDS: LABETALOL HCL INJ 100 MG/20 ML VIAL IV PUSH ×2 (12:43→13:03)
--- NOTE | 2024-08-22 12:50 | SUR.PHASEII ---
reported to Dr. Rader that patient had some elevated bp's 185/101, 205/93, and maintaining those numbers after repositioning the bp cuff. Verbal order given over phone to give 2.5mg of labetolol IV and to repeat in 15min after first dose if no improvement.
--- NOTE | 2024-08-22 13:21 | SUR.PHASEII ---
Per Dr. Rader, patient is okay to be discharged with her current blood pressures. Dr. Rader spoke with patient and told her to make sure she takes her blood pressure medication when she got home.
== END 2024-08-22 13:35 | disposition home or self-care (01) ==
PROVIDERS: PCP Physician Assistant Medical; Referring Provider Nurse Practitioner Family; Visit Provider Internal Medicine Gastroenterology
PROC: 0DJ08ZZ Inspection of Upper Intestinal Tract, Via Natural or Artificial Opening Endoscopic (ICD-10-PCS; CPT 43239; principal; 2024-08-22 11:30)
DX: K21.9 Gastro-esophageal reflux disease without esophagitis (principal); K29.30 Chronic superficial gastritis without bleeding; K44.9 Diaphragmatic hernia without obstruction or gangrene; D64.9 Anemia, unspecified; E03.9 Hypothyroidism, unspecified; J44.9 Chronic obstructive pulmonary disease, unspecified; I10 Essential (primary) hypertension; E78.00 Pure hypercholesterolemia, unspecified; I25.10 Atherosclerotic heart disease of native coronary artery without angina pectoris; F32.A Depression, unspecified; F41.9 Anxiety disorder, unspecified; Z79.82 Long term (current) use of aspirin; Z79.02 Long term (current) use of antithrombotics/antiplatelets; Z98.890 Other specified postprocedural states; Z95.5 Presence of coronary angioplasty implant and graft; Z87.891 Personal history of nicotine dependence; Z87.19 Personal history of other diseases of the digestive system; Z86.73 Personal history of transient ischemic attack (TIA), and cerebral infarction without residual deficits; Z80.9 Family history of malignant neoplasm, unspecified; Z82.49 Family history of ischemic heart disease and other diseases of the circulatory system
CPT/HCPCS: 43239; 88305; J2003; J2704; J7120

== ENCOUNTER 2024-12-01 11:06 | Emergency (ER) | payer MEDICARE, SELFPAY ==
[2024-12-01 11:10] VITALS: BP 136/80; PULSE 117; RESP 16; TEMP 36.5; O2SAT 95
--- NOTE | 2024-12-01 11:11 | ED.FEMALEGU ---
HPI - Female Genitourinary General Chief complaint: Urogenital-Female Stated complaint: UTI Patient presents to [facility] with complaints of burning with urination, cloudy colored urine, and blood in urine that began over the last 24 hours. Patient reports a long history of frequent urinary tract infections and occasionally having kidney infections. Patient does report about 2 weeks ago she was treated with nitrofurantoin for a urinary tract infection by primary care physician. Patient reports after taking this medication symptoms did completely resolve. Patient does drink significant amounts of water and does not hold her urine. Denies fever, chills, body aches, abdominal pain, or vaginal symptoms. Related Data Home Medications ?Medication ?Instructions ?Recorded ?Confirmed ?Last Taken ?Type cholecalciferol (vitamin D3) 50 50 mcg PO HS 01/17/20 11/27/24 08/21/24 History mcg (2,000 unit) capsule (Vitamin D3) ferrous gluconate 324 mg (37.5 mg 324 mg PO HS 01/17/20 11/27/24 08/21/24 History iron) tablet vitamin B complex (B 1 tablet PO HS 01/17/20 11/27/24 01/26/20 21:00 History Complex-Vitamin B12 tablet) coenzyme Q10 200 mg capsule 200 mg PO DAILY 03/25/22 11/27/24 08/21/24 History aspirin 81 mg tablet,delayed 81 mg PO DAILY 08/08/23 11/27/24 08/21/24 History release ezetimibe 10 mg tablet (Zetia) 10 mg PO DAILY 01/09/24 11/27/24 08/21/24 History Allergies Allergy/AdvReac Type Severity Reaction Status Date / Time hydralazine Allergy Intermediate Palpitation Verified 12/01/24 11:12 s adhesive tape AdvReac Mild REDNESS Verified 12/01/24 11:12 clindamycin AdvReac Mild Rash Verified 12/01/24 11:12 Review of Systems Constitutional: Constitutional: Reports as per HPI, Denies chills and Denies fatigue Eyes: Eyes: Reports no additional eye complaints ENT: Reports system reviewed and no additional complaints, except as documented Cardiovascular: Cardiovascular: Reports no additional cardiovascular complaints Respiratory: Respiratory: Reports no additional respiratory complaints Gastrointestinal: Gastrointestinal: Reports as per HPI, Denies abdominal pain, Denies diarrhea, Denies nausea and Denies vomiting Genitourinary: Genitourinary: Reports as per HPI, Reports hematuria, Reports nocturia, Reports dysuria, Denies pelvic pain, Denies flank pain, Denies urinary incontinence and Denies vaginal discharge Musculoskeletal: Musculoskeletal: Reports no additional musculoskeletal complaints Integumentary/Breasts: Skin/Breast: Reports system reviewed and no additional complaints, except as docu Neurologic: Reports system reviewed and no additional complaints, except as documented Psychiatric: Psychiatric: Reports no additional psychiatric complaints Endocrine: Endocrine: Reports no additional endocrine complaints Hematologic/Lymphatic: Hematologic/Lymphatic: Reports no additional hematologic/lymphatic complaints Allergic/Immunologic: Allergic/Immunologic: Reports no additional allergic/immunologic complaints [facility] Past Medical History Medical History Cough Dry eyes, bilateral Stroke Anemia Depression Anxiety Hypothyroidism Back pain Hemorrhoids Gastroesophageal reflux disease DYSPHAGIA, ESOPHAGEAL STRICTURE- DILATED IN PAST COPD (chronic obstructive pulmonary disease) HX [facility] SMOKER HTN (hypertension) Hypercholesterolemia CAD (coronary artery disease) 1 STENT 2012 Hx of transient ischemic attack (TIA) X2 Surgical History Surgical History History of hysterectomy still has ovaries History of left-sided carotid endarterectomy Hx of cardiac catheterization 1 2012 Family History Family History Sibling Depression Cerebrovascular accident Thyroid disorder Other Cancer Social History Social History Social History: 11/11/24 very confident with medical form Smoking packs per day: 2 Smoking cigarettes per day: 40.0 Years smoked: 60 Smoking pack-years: 120.00 Smoking status: Former smoker Tobacco type: cigarettes Second hand tobacco smoke exposure: No Alcohol intake: current Substance use: never Substance use type: does not use Do You Feel Safe in your Home?: Yes Lack of Transportation: No Lack of Food: Never True Current Housing: I Have Housing Concerned About Future Housing: No Difficulty Paying Gas/Electric Bills: No Difficulty Paying for Meds: No Currently Unemployed: No Education: High School Diploma/GED Difficulty w/ Childcare or Family Care: No Living arrangements: with family Occupation/Education: occupation Gender identity (if verbalized by the patient): Female Sexual Orientation (if Verbalized by the Patient): Straight or Heterosexual Spiritual care concerns: No Exam Const: General: healthy appearing and no acute distress; No diaphoretic or ill appearing Nutritional Appearance: well nourished Orientation/consciousness: patient oriented x3 Limitations: no limitations Resp: Effort & Inspection: normal respiratory effort Auscultation: clear to auscultation bilaterally Cardio: Rate: regular rate Rhythm: regular rhythm GI: GI Palp: Yes Soft to palpation, No Tenderness to palpation present (GI), No Guarding due to palpation present (GI) and No Rigid due to palpation Auscultation: normal bowel sounds : General: Yes bladder normal to palpation, Yes Bladder palpation abnormal and Yes no CVA tenderness Back/Spine/Pelvis: Back: no CVA tenderness Skin: General skin exam: normal color Rashes: no rashes Wounds: no wounds Neuro: General: patient oriented x3 Speech: normal speech Gait exam (Neuro): Normal gait present Psych: Appearance: grossly normal Mental Status: mental status grossly normal Affect: normal affect Attitude: cooperative Course Course Level of Care: Express Care Visit Vital Signs Vital signs: Vital Signs Temperature 97.7 F 12/01/24 11:10 Pulse Rate 117 H 12/01/24 11:10 Respiratory Rate 16 12/01/24 11:10 Blood Pressure 136/80 12/01/24 11:10 Pulse Oximetry 95 12/01/24 11:10 Oxygen Delivery Room Air 12/01/24 11:10 Temperature 97.7 F 12/01/24 11:10 Pulse Rate 117 H 12/01/24 11:10 Respiratory Rate 16 12/01/24 11:10 Blood Pressure 136/80 12/01/24 11:10 Pulse Oximetry 95 12/01/24 11:10 Oxygen Delivery Room Air 12/01/24 11:10 MDM - Female Genitourinary MDM Narrative Medical decision making narrative: UA positive for UTI on exam. Will treat with cephalexin given allergies and recent medications. Culture sent from urgent care. Discharge instructions reviewed with patient, as well as provided in writing per nursing staff. The instructions also include specific and strict return/GO TO THE ER as well as f/u information. All questions have been answered, and the patient deny any further questions with discharge and discharge plan. Differential Diagnosis Differential diagnosis: Likely urinary tract infection, bacterial vaginosis, cervicitis, vaginitis and cystitis Medical Records Attestation: I reviewed the patient's medical records. Lab Data Attestation: I reviewed the patient's lab results. Labs: Lab Results 12/01/24 Range/Units 11:25 POC Urine Color Yellow POC Urine Clarity Cloudy POC Urine pH 6.0 POC Ur Specif [place] 1.030 POC Urine Protein 3+ (Negative) POC Ur Glucose (UA) Negative (Negative) POC Urine Ketones Negative (Negative) POC Urine Blood 3+ (Negative) POC Urine Nitrite Negative (Negative) POC Urine Bilirubin 1+ (Negative) POC Urine Urobilinogen 1.0 POC U Leukocyte Esteras 3+ (Negative) Discharge Plan Discharge Clinical Impression: Cystitis Patient Disposition: Home Condition: Stable Instructions: Antibiotic Form, Urinary Tract Infection in Women (ED) Patient Language: Beninese Prescriptions: No Action coenzyme Q10 200 mg capsule 200 mg PO DAILY [employer] 1.5 billion cell capsule 1 cap PO .qd Qty: 30 0RF aspirin 81 mg tablet,delayed release (DR/EC) 81 mg PO DAILY nitroglycerin 0.4 mg tablet, sublingual 0.4 mg sublingual BID PRN (Reason: Chest Pain) Qty: 25 0RF ezetimibe [Zetia] 10 mg tablet 10 mg PO DAILY cyclobenzaprine 5 mg tablet 5 mg PO TID PRN (Reason: muscle spasm) Qty: 30 0RF methylprednisolone [Medrol (Brown)] 4 mg tablets,dose pack See Rx Instructions PO PER PKG DIR Qty: 21 0RF Rx Instructions: PO PER PKG DIR vitamin B complex [B Complex-Vitamin B12] Tablet 1 tablet PO HS cholecalciferol (vitamin D3) [Vitamin D3] 50 mcg (2,000 unit) Capsule 50 mcg PO HS ferrous gluconate 324 mg (37.5 mg iron) Tablet 324 mg PO HS pravastatin 40 mg tablet 40 mg PO QHS Qty: 90 0RF levothyroxine 100 mcg tablet 100 mcg PO DAILY Qty: 90 0RF clopidogrel 75 mg tablet 75 mg PO DAILY Qty: 90 1RF fluoxetine [Prozac] 10 mg capsule 10 mg PO DAILY Qty: 90 0RF lisinopril 20 mg tablet 20 mg PO DAILY Qty: 90 0RF pantoprazole 40 mg tablet,delayed release (DR/EC) 40 mg PO BID Qty: 180 0RF montelukast 10 mg tablet 10 mg PO QHS Qty: 90 1RF Follow-up/Referrals: Juli Koroma PA-C [Primary Care Provider] - Time of Disposition: 11:35
[2024-12-01 11:29] LABS: EDUAAPPEAR Cloudy; EDUABILI 1+ (Negative); EDUABLOOD 3+ (Negative); EDUACOLOR1 Yellow; EDUAGLUCOSE Negative (Negative); EDUAKETONE Negative (Negative); EDUALEUKO 3+ (Negative); EDUANITRATE Negative (Negative); EDUAPROTEIN 3+ (Negative)
--- OUTSIDE RECORDS SUMMARY | 2024-12-01 18:00 | XMS_ITS | Clinical Summary ---
Author Organization [facility] [address] Address [address] [place] [address] Care Team Providers Care Recreational Therapy Technician Name Role Phone Juli Koroma Primary Care Provider [phone] Allergies Active Allergy Reactions Criticality Noted Date [...] total) by mouth daily Active levothyroxine (SYNTHROID) 75 mcg tablet [address] (PROTONIX) [...] total) by mouth daily 2 Active pravastatin sodium (PRAVASTATIN ORAL) Take 40 mg by mouth nightly Active cholecalciferol (VITAMIN D-3) 2000 unit tablet [...] 90 tablet 2 4 04/24/20 25 Active vit C/E/zinc ox/hernan/lut/zeax (ICAPS AREDS2 ORAL) Take by mouth Active Active Problems Problem Noted Date Diagnosed Date Coronary artery disease invo lving kake coronary artery of kake heart without angina pectoris 06/22/2017 History of coronary artery stent placement 06/22 Encounters Date Type Department Care Team Description 10/29/2024 10:15 AM CDT Office Visit [facility] Cardiology [address] [place] [address] Jose Cruz Pedro MD Coronary artery disease involving kake coronary artery of kake heart without angina pectoris (Primary Dx); History of coronary artery stent placement from Last 3 Months Medical History Medical [...] on file 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 Gender Identity Not on file Sexual Orientation Not on file Obstetrics History Last Filed Vital Signs Vital Sign Reading Time Taken Comments Blood Pressure 122/68 10/29/2024 10:14 AM CDT Pulse 63 10/29/2024 10:14 AM CDT Temperature - - Respiratory Rate - - Oxygen Saturation 93% 10/29/2024 10: 14 AM CDT Inhaled Oxygen Concentration - - Weight 68.9 kg (151 lb 12.8 oz) 025 10:14 AM CDT Height 152.4 cm (5') 10/29/2024 10:14 AM CDT Body Mass Index 29.65 10/29/2024 10:14 AM CDT Plan of Treatment Health Maintenance Due Date Last Done Comments Colon Cancer Screening-Colonoscopy 1950 Depression Screening 1950 Fall Risk Assessment 1950 Hepatitis C Screening 1950 DTaP/Tdap/Td Vaccine (1 - Tdap) 1961 Hepatitis B Screening 1968 Well Visit 65+ 10/17/2015 Zoster Vaccine (2 of 3) 04/23/2016 02/27/2016 Breast Cancer Screening-Mammogram 02/25/2025 02/26/2024, 02/26/2024, 04/19/2019 Influenza Vaccine (Season Ended) 2025 03/14/2018, 03/08/2017, 05/05/2016 Osteoporosis Screening-Bone Density Scan 02/25/2026 02/26/2024 Pneumococcal vaccine 65+ Completed 03/08/2017, 02/01 Procedures Procedure Name Priority Date/Time Associated Diagnosis Comments POCT LIPID PANEL Routine 10/29/2024 11:4 1 AM CDT Coronary artery disease involving kake coronary artery of kake heart without angina pectoris from Last 3 Months Results * POCT lipid panel (10/29/2024 11:41 AM CDT) Cholesterol, POC 157 mg/dL Comment:GLU = 148 HDL, POC 26 mg/dL Triglycerides, POC 154 mg/dL LDL Cholesterol POC 100 mg/dL Chol/HDL Ratio, POC 3.8 Non-HDL Cholesterol, POC 131 mg/dL Cholesterol Total, POC 157 mg/dL Capillary blood 10/29/2024 1 1:41 AM CDT Jose Cruz Pedro MD POINT OF CARE TEST ORDER CHRISTIANNE Final Result from Last 3 Months Insurance MEDICARE [facility] MEDICARE SUPPLEMENT Care Teams Recreational Therapy Technician Relationship Specialty Start Date End Date Juli Koroma PA [facility] [place] [address] PCP - General Family Practice 10/29/24
--- OUTSIDE RECORDS SUMMARY | 2024-12-01 18:00 | XMS_ITS | Referral Summary ---
Author Organization [facility] [address] Address [address] [place] [address] Care Team Providers Care Craft Recruiter Name Role Phone Juli Koroma Primary Care Provider Encounters Date Type Department Care Team Description 10/29/2024 10:15 AM CDT Office Visit [facility] Cardiology [address] [place] [address] Jose Cruz Pedro MD Coronary artery disease involving [place] coronary artery of [place] heart without angina pectoris (Primary Dx); History of coronary artery stent placement from Last 3 Months Allergies Active Allergy [...] Diagnosed Date Coronary artery disease invo lving [place] coronary artery of [place] heart without angina pectoris 06/22/2017 History of [...] on file 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 Gender Identity Not on file Sexual Orientation [...] 10/29/2024 10:14 AM CDT Plan of Treatment Not on file Procedures Procedure Name Priority Date/Time Associated Diagnosis Comments POCT LIPID PANEL Routine 10/29/2024 11:4 1 AM CDT Coronary artery disease involving [place] coronary artery of [place] heart without angina pectoris from Last 3 [...] Result from Last 3 Months Insurance MEDICARE MEDICARE [facility] MEDICARE SUPPLEMENT Care Teams Craft Recruiter Relationship Specialty Start Date End Date Juli Koroma PA [address] [place] [id number] PCP - General Family Practice 10/29/24
--- OUTSIDE RECORDS SUMMARY | 2024-12-01 18:00 | XMS_ITS | Clinical Summary ---
Author Organization [facility] Address [address] [place] [address] Care Team Providers Care Geotechnical Operating Engineer Name Role Phone Unavailable Primary Care Provider Unavailabl e Source Comments [facility],non-owned Affiliates and Associated Physician Practices is amultiple site organization consisting of ambulatory clinics and hospital sitesin [place], [place], [place] and [place]. This disclosure is being madepursuant to the Care Everywhere program and may not contain all information available regarding this patient. 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 Gender Identity Not on file Sexual Orientation [...] SCREENING 1950 LIPID TESTING 1950 MAMMOGRAM 1950 MEDICARE AWV 12 MONTHS 1950 HEPATITIS C SCREENING 10/11/1968 DTAP/TDAP/TD VACCINES (1 - Tdap) 1969 PNEUMOCOCCAL VACCINE 50+ (1 of 1 - PCV) 2000 ZOSTER VACCINE (1 of 2) 2000 COVID-19 VACCINE (1 - 2023-2 5 season) 2024 DEPRESSION SCREENING 07/03/2024 INFLUENZA VACCINE (Season Ended) 2025 Respiratory Syncytial Virus (RSV) Vaccine Pt: or [...] to complete this topic MENINGOCOCCAL (Group B) VACC INE SHARED DECISION-MAKING Aged Out No longer eligibl e based on patient's age to complete this topic MENINGOCOCCAL GROUPS A/C/Y/W VACCINE Aged Out No longer eligible b ased on patient's age to complete this topic Insurance MEDICARE ANTH SELF PAY NO INSURANCE Member Subscriber Plan / Payer (Ef fective for All Dates) Name:Irene Morrellammon Salter Member ID:Not on file Relation to Subscriber:Not on file Name:VERITO MORRELL Gaetano Subscriber ID:Not on file (Home) Address: [address] [place] [id number] Payer ID:Not on file Group ID:Not on file Type:Self Pay Address: [place], [place]
--- OUTSIDE RECORDS SUMMARY | 2024-12-01 18:00 | XMS_ITS | Encounter Summary ---
Author Organization [facility] Address [address] [place] [address] Care Team Providers Care Demo Coordinator Name Role Phone Priyank Diaz MD Primary Care Provider [phone] Fercho Mccallum MD Primary Care Provider [phone] Juli Koroma Primary Care Provider [phone] Encounter Details Date Type Department Care Team ([facility] Contact Info) Description 10/03/2016 Orders Only [facility] ProviderNegar MD [address] [place] [id number] Social History Tobacco Use Types Packs/Day Years Used Date Smoking Tobacco: Never Assessed Comments:Smoking History Pac ks/day: 1 Packs Alcohol Use Standard Drinks/Week Comments No 0 (1 standard drink = 0.6 oz pur e alcohol) Comments Unknown Sex and Gender Information Value Date Recorded Sex Assigned at Not on file 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
== END 2024-12-01 11:37 | disposition home or self-care (01) ==
PROVIDERS: Emergency Provider Nurse Practitioner Family; PCP Physician Assistant Medical
DX: N30.90 Cystitis, unspecified without hematuria (principal); Z87.891 Personal history of nicotine dependence; E03.9 Hypothyroidism, unspecified; K21.9 Gastro-esophageal reflux disease without esophagitis; J44.9 Chronic obstructive pulmonary disease, unspecified; I10 Essential (primary) hypertension; E78.00 Pure hypercholesterolemia, unspecified; I25.10 Atherosclerotic heart disease of native coronary artery without angina pectoris; D64.9 Anemia, unspecified; Z79.82 Long term (current) use of aspirin; F41.9 Anxiety disorder, unspecified; F32.A Depression, unspecified; Z86.73 Personal history of transient ischemic attack (TIA), and cerebral infarction without residual deficits; Z95.5 Presence of coronary angioplasty implant and graft
CPT/HCPCS: 81003; 87086; 99213; G0463

== ENCOUNTER 2025-06-14 11:48 | Emergency (ER) | payer MEDICARE, SELFPAY ==
--- OUTSIDE RECORDS SUMMARY | 2025-06-14 11:51 | XMS_ITS | Encounter Summary ---
Author Organization [facility] Address [address] [place] [address] Care Team Providers Care Supervisor [employer] Name Role Phone Priyank Diaz MD Primary Care Provider [phone] Fercho Mccallum MD Primary Care Provider [phone] Juli Koroma Primary Care Provider [phone] Encounter Details Date Type Department Care Team ([facility] Contact Info) Description 10/03/2016 Orders Only [facility] ProviderNegar MD [address] [place] [id number] Social History Tobacco Use Types Packs/Day Years Used Date Smoking Tobacco: Never Assessed Comments:Smoking History Pac ks/day: 1 Packs Alcohol Use Standard Drinks/Week Comments No 0 (1 standard drink = 0.6 oz pur e alcohol) Comments Unknown Sex and Gender Information Value Date Recorded Sex Assigned at Not on file 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
--- OUTSIDE RECORDS SUMMARY | 2025-06-14 11:51 | XMS_ITS | Clinical Summary ---
Author Organization [facility] Address [address] [place] [address] Care Team Providers Care Floral Decorator Name Role Phone Unavailable Primary Care Provider Unavailabl e Source Comments [facility],non-owned Affiliates and Associated Physician Practices is amultiple site organization consisting of ambulatory clinics and hospital sitesin [place], [place], [place] and [place]. This disclosure is being madepursuant to the Care Everywhere program and may not contain all information available regarding this patient. 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 Gender Identity Not on file Sexual Orientation [...] 2000 ZOSTER VACCINE (1 of 2) 2000 DEPRESSION SCREENING 07/03/2024 COVID-19 VACCINE (1 - 2024-2 6 season) 2025 INFLUENZA VACCINE (#1) 2025 Respiratory Syncytial Virus (RSV) Vaccine Pt: [...] age to complete this topic Insurance MEDICARE SELF PAY NO INSURANCE Member Subscriber Plan / Payer (Ef fective for All Dates) Name:Verito Morrell Member ID:Not on file Relation to Subscriber:Not on file Name:VERITO MORRELL Subscriber ID:Not on file (Home) Address: [address] [place] [id number] Payer ID:Not on file Group ID:Not on file Type:Self Pay Address: [place], [place]
--- OUTSIDE RECORDS SUMMARY | 2025-06-14 11:51 | XMS_ITS | Clinical Summary ---
Author Organization [facility] Address [address] [place] [address] Care Team Providers Care Furnace Cleaner Name Role Phone Jose Cruz Pedro MD Unavailable [phone] Slime Naylor PA-C Primary Care Provider [phone] Allergies Active Allergy Reactions Criticality Noted Date Comments Clindamycin Hives 02/09/2022 Hydralazine Palpitations Medium 08/01/2023 Tape Redness Medium 05/03/2021 Medications ferrous gluconate 324 (38 FE) MG tablet Take 1 tablet (324 mg total) by mouth nightly at bedtime. Active FLUoxetine 10 MG capsule Take 1 capsule (10 mg total) by mouth daily. 1 Active montelukast 10 MG tablet Take 1 tablet (10 mg total) by mouth daily. 1 Active pantoprazole EC 40 MG tablet Take 1 tablet (40 mg total) by mouth 2 (two) times daily. 1 Active Cholecalciferol (VITAMIN D3) 50 MCG (1999 UT) Tab Take 1 tablet (50 mcg total) by mouth nightly at bedtime. Active Coenzyme Q10 200 MG Cap Take 200 mg by mouth daily. Active clopidogrel (PLAVIX) 75 MG tabletIndication s:Cerebrovascula r accident (CVA), unspecified mechanism (CMS/HCC HHS/HCC) Take 1 tablet (75 mg total) by mouth daily. 30 tablet 5 1 Active probiotic (FLORAJEN3) Cap capsule Take 1 capsule by mouth daily. Active cycloSPORINE (RESTASIS) 0.05 % ophthalmic emulsion 1 drop 2 (two) times daily. Active levothyroxine (SYNTHROID) 50 MCG tablet Take 1 tablet (50 mcg total) by mouth every morning. Active aspirin EC (ECOTRIN) 81 MG tablet Take 1 tablet (81 mg total) by mouth daily. 4 Active vitamin B-12 (CYANOCOBALAMIN) (CYANOCOBALAMIN) 1000 mcg tablet Take 1 tablet (1,000 mcg total) by mouth daily. Active lisinopril (PRINIVIL) 20 MG tablet Take 1 tablet (20 mg total) by mouth daily. 4 Active nitroglycerin (NITROSTAT) 0.[address] 1 tablet (0.4 mg total) under the tongue every 5 (five) minutes as needed. 4 Active albuterol sulfate HFA 108 (90 Base) MCG/ACT inhaler Inhale 2 puffs into the lungs every 4 (four) hours as needed. 4 Active ezetimibe (ZETIA) 10 MG tablet 5 Active amoxicillin-clav ulanate (AUGMENTIN) 875-125 MG tablet BID x 3 days to complete 10 days with prior prescription. 6 tablet 5 Active amoxicillin-clav ulanate (AUGMENTIN) 875-125 MG tablet Take 1 tablet (875 mg total) by mouth 2 (two) times daily for 10 days. 20 tablet 5 05/17/20 25 Active Problems Problem Noted Date Diagnosed Date Sepsis 05/03/2025 Hypertensive urgency 07/30/2023 Carotid artery stenosis, symptomatic, [...] artery disease of n ative artery of [place] heart with stable angina pectoris 05/06/2021 Assessment & Plan (05/06/2021 12:23 AM CDT): Given that she has symptoms of chest discomfort, I recommended she undergo nuclear stress testing, which was within normal limits. Continue clopidogrel. 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 Med/Surg [address] [place] [address] Krunal Hines MD Mahtani, Andrew, MD Harris, Michael, MD Abdominal Pain Discharge Disposition: Home or Self Care (Routine Discharge) 05/03/2025 Travel 05/01/2025 3:40 PM CDT Office Visit [facility] Multispecialty Care - [facility] [address], [address] [place] [address] Tony Saldivar MD Follow Up (Vocal cord paralysis) 05/01/2025 Travel from Last 3 Months Immunizations Immunization Administration Dates Next Due Influenza Adult (Generic) 03/14/2018,03/08/2017, 05/05/2016 Pneumococcal (Pneumovax 23) 03/08/2017 Pneumococcal (Prevnar 13) 02/27/2016 Zoster (Zostavax) 61235 Unt/0.65Ml 02/27/2016 Family History Medical History Relation Comments Hypertension Brother Cancer Daughter Neorobrastoma Cancer Father bladder cancer Early Hearing Loss Sister 1 Arthritis Sister 2 Breast Cancer Neg Hx Relation Status Comments Brother Other has a brother wi th htn (has 4 brothers) Daughter Alive Father (Age 82) of bladde r cancer Mother (Age 89) of hx of rheumatoid arthritis Sister 1 Other has 3 sisters Sister 2 Alive Son Alive Social History Tobacco Use Types Packs/Day Years Used Date Smoking Tobacco: Former Cigarettes 1.5 40 0 07/03/1978 - 07/03/2018 Smokeless Tobacco: Never Tobacco Cessation:Counseling Given: Not Answered Alcohol Use Standard Drinks/Week Comments Not Currently 1 (1 standard drink = 0.6 oz pure alcohol) rarely, once a year has a drink [facility] [employer] Answer Date Recorded In the past 12 months has e [employer], gas, oil, or water [employer] threatened to shut off services in your [...] or ex-partner? No 07/30/2023 Social Connection and Isolation Panel Answer Date Recorded In a typical week, how many times do you talk on the phone with family, friends, or neighbors? More than three times a week 07/30/2023 How often do you get togethe r with friends or relatives? More than three times a week 07/30/2023 How often do you attend chur or mandaeism services? 1 to 4 times per year 07/30/2023 Do you belong to any clubs o r organizations such as rastafarian groups, unions, fraternal or athletic groups, or [...] Date Recorded Patient Health Questionnaire-2 Score 0 05/01/2025 [facility] - Occupational Stress [...] place to sleep or slept in a detention (including now)? No 07/30/2023 Humiliation, Afraid, Rape, and Kick questionnair e Answer Date Recorded Within the last year, have y ou been afraid of your partner or ex-partner? No 05/03/2025 Within the last year, have y ou been humiliated or emotionally abused in other ways by your partner or ex-partner? No Within the last year, have y ou been kicked, hit, slapped, or otherwise physically hurt by your partner or ex-partner? No 05/03/2025 Within the last year, have y ou been raped or forced to have any kind of sexual activity by your partner or ex-partner? No 05/03/2025 Overall Financial Resource Strain (CARDIA) Answe r Date Recorded How hard is it for you to pa y for the very basics like food, housing, medical care, and heating? Not hard at all 05/03/2025 Hunger Vital Sign Answer Date Recorded Within the past 12 months, y ou worried that your food would run out before you got the money to buy more. Never true 05/03/20 25 Within the past 12 months, t he food you bought just didn't last and you didn't have money to get more. Never true 05/03/2025 PRAPARE - Transportation Answer Date Re corded In the past 12 months, has l ack of transportation kept you from medical appointments or from getting medications? No 07/2024 In the past 12 months, has l ack of transportation kept you from meetings, work, or from getting things needed for daily living? No 05/03/2025 Housing Stability Vital Sign Answer Jose e Recorded In the last 12 months, was t here a time when you were not able to pay the mortgage or rent on time? No 05/03/2025 In the past 12 months, how m any times have you moved where you were living? 1 05/03/2025 At any time in the past [address] [facility], were you homeless or living in a detention (including now)? No 05/03/2025 [facility] Utilities Answer Date Recorded In the past 12 months has e electric, gas, oil, or water company threatened to shut off services in your home? No 05/03/2025 Comments No Sex and Gender Information Value Date Recorded Sex Assigned at Female 11/21/2023 12:18 PM CDT Legal Sex Female 7:09 PM CDT Gender Identity Female 11/21/2023 12:18 PM CDT Sexual Orientation Not on file Last Filed Vital Signs Vital Sign Reading Time Taken Comments Blood Pressure 126/64 05/07/2025 11:05 AM FUTURES TRADER Pulse 71 05/07/2025 11:05 AM FUTURES TRADER Temperature 36.3 C (97.4 F) 05/07/2025 11:05 AM FUTURES TRADER Respiratory Rate 18 05/07/2025 11:0 5 AM FUTURES TRADER Oxygen Saturation 94% 05/07/2025 11: 05 AM FUTURES TRADER Inhaled Oxygen Concentration - - Weight 66.6 kg (146 lb 13.2 oz) 05/06/2025 4:32 AM FUTURES TRADER Height 152.4 cm (5') 05/03/2025 2:00 PM CDT Body Mass Index 28.68 05/03/2025 2:00 PM CDT Plan of Treatment Upcoming Encounters Date Type Department Care Team (Late st Contact Info) Description 10/07/2025 11:40 AM CDT Office Visit [facility] - [facility] [address], [address] [place] [address] Tony Saldivar MD [address] [place] [address] 10/31/2025 2:[address] [facility] Ultrasound [address] [place], [place] [id number] Martin Garcia MD [facility]. [address] [place] [address] Health Maintenance Due Date Last Done Comments ASCVD Statin 1950 Colorectal Cancer Screening Colonoscopy (10 Years) 1950 Hepatitis C 1968 DTaP, Tdap and Td Vaccines (1 - Tdap) 1969 RSV Immunization or 60+ Years (1 - Risk 60-74 years 1-dose series) 2010 Annual Medicare Wellness Visit 10/17/2015 Zoster Vaccines (2 of 3) 04/23/2016 02/27/2016 Lung Cancer Screening 03/12/2022 03/12/2021 ASCVD LDL 07/31/2024 07/31/2023, 05/04/2021 COVID-19 Vaccine ( season) 2025 04/11/2022, 04/26/2021, 09/18/2020, Additional history exists Influenza Adult (#1) 2025 04/14/2024, 04/11/2022, 06/09/2021, Additional history exists Mammogram Screening 10/18/2026 10/18/2024, 04/17/2024, 02/26/2024, Additional history exists Pneumococcal Vaccine: 50+ Years Completed 03/08/2017, 02/27/2016 Dexa Scan (General) Completed 02/26/2024 PHQ-2 (Physician [place]) Completed 05/01/2025 Hepatitis A Vaccines Aged Out No long er eligible based on patient's age to complete this topic Meningococcal B Vaccine Aged Out No l onger eligible based on patient's age to complete this topic Meningococcal Vaccine Aged Out No abram jeremiah eligible based on patient's age to complete this topic RSV Immunizations Under 20 Months Aged Out No longer eligible based on patient's age to complete this topic Goals Goal Patient Goal Type Associated Problems Recent Progress Patient-Stated? Author Patient will return to prior living situation and remain independent in ADLs upon discharge from hospital General No Leslie Foreman RN Medical Devices Implanted Type Area Varnish Remover Device Identifier Shelf Expiration Date Model / Serial / Lot Lens Lens Bilateral: Eye Stent-08/15/2012 Implanted:08/15 by Jose Cruz Pedro MD (Quantity not on file) Stent Heart / [id number] / [id number] Explanted Type Area Varnish Remover Device Identifier Shelf Expiration Date Model / Serial / Lot Patch Cv Thk.36mm; Ulthn; Taper 6x.3in Knit; - [id number] Explanted:Qty : 1 on 05/13/2021 by Emmanuel Thomas MD at [facility] Graft Left: Carotid [employer] [id number] 09/30/2025 [id number] / [id number] Description:Left carotid art babak patch Shunt Cantu F3 Carotid With T-Port - [id number] Explanted:Qty : 1 on 05/13/2021 by Emmanuel Thomas MD at [facility] Shunt Left: Carotid [employer] [id number] 08/30/2025 [id number] / [id number] / [id number] Procedures Procedure Name Priority Date/Time Associated Diagnosis Comments BASIC METABOLIC PANEL Routine 05/07/2025 6:39 AM FUTURES TRADER CBC W/DIFF AUTOMATED Routine 05/07/2025 6:39 AM FUTURES TRADER BASIC METABOLIC PANEL Routine 05/06/2025 6:25 AM FUTURES TRADER CBC W/DIFF AUTOMATED Routine 05/06/2025 6:25 AM FUTURES TRADER BASIC METABOLIC PANEL Routine 05/05/2025 6:44 AM FUTURES TRADER CBC W/DIFF AUTOMATED Routine 05/05/2025 6:44 AM FUTURES TRADER HC MAGNESIUM Routine 05/04/2025 6:37 AM FUTURES TRADER HC COMPREHENSIVE METABOL PANEL Routine 05/04/2025 6:37 AM FUTURES TRADER HC CBC AUTO W/AUTO DIFF Routine 05/04/2025 6:37 AM FUTURES TRADER HC URINALYSIS AUTO W/MICRO STAT 05/03/2025 6:29 PM CDT HC BACTERIA BLOOD CULTURE T1 STAT 05/03/2025 12:01 PM CDT HC BACTERIA BLOOD CULTURE T1 STAT 05/03/2025 12:[address] ABD+PEL W CON STAT 05/03/2025 10:4 0 AM CDT HC LACTATE/LACTIC ACID STAT 9:24 AM CDT HC CREATINE KINASE (CPK) TOTAL STAT 05/03/2025 9:20 AM CDT BETA-HYDROXYBUTYRATE STAT 05/03/2025 9:20 AM CDT HC TROPONIN QN STAT 05/03/2025 9:20 AM CDT HC LIPASE STAT 05/03/2025 9:20 AM CDT HC COMPREHENSIVE METABOL PANEL STAT 05/03/2025 9:20 AM CDT HC CBC AUTO W/AUTO DIFF STAT 05/03/2025 9:20 AM CDT MG DIAG W FLAKITO LT DIGI Routine 2:37 PM CDT Abnormal mammogram BONE DENSITY/DEXA Routine 02/26/2024 2:1 9 PM CDT Resistant ovary syndrome LIPID PANEL Routine 07/31/2023 5:[address] CHEST W CON Routine 03/12/2021 1:[address] scan of lung from Last 3 Months or Most Recently Relevant to Health Maintenance Results * (ABNORMAL) BASIC METABOLIC PANEL (05/07/2025 6:39 AM FUTURES TRADER) Only the most recent of3 resultswithin the time period is included. GLUCOSE 103(H) 70 - 99 MG/DL 05/07/2025 7:15 AM FUTURES TRADER [facility] BUN 4(L) 7 - 18 MG/DL 05/07/2025 7:15 AM [facility] CREATININE S/P/B 0.85 0.55 - 1.02 MG/DL 05/07/2025 7:15 AM [facility] SODIUM S/P/B 142 136 - 145 MMOL/L 05/07/2025 7:15 AM [facility] POTASSIUM S/P/B 3.3(L) 3.5 - 5.1 MMOL/L 05/07/2025 7:15 AM [facility] CHLORIDE S/P/B 104 100 - 108 MMOL/L 05/07/2025 7:15 AM [facility] CO2 30.7 21 - 32 MMOL/L 05/07/2025 7:15 AM [facility] CALCIUM S/P/B 9.0 8.5 - 10.1 MG/DL 05/07/2025 7:15 AM [facility] ANION GAP 7.3 5 - 15 MMOL/L 05/07/2025 7:15 AM [facility] BUN CREATININE RATIO 4.7(L) 6 - 26 05/07/2025 7:15 AM [facility] GFR ESTIMATE 72(L) >90 ML/MIN/1.7 3 M2 05/07/2025 7:15 AM [facility] Comment: NOTE: eGFR is not calculated for patients <18 years of age. This is an estimated GFR calculation using the new CKD EPI creatinine equation without race and so does not require a correction factor for race. This estimated GFR should not be used for calculating drug doses. 05/07/2025 6:39 AM FUTURES TRADER us Moo England MD LABORATORY Final Result [facility] [address] [place] [address], * (ABNORMAL) CBC W/DIFF AUTOMATED (05/07/2025 6:39 AM FUTURES TRADER) Only the most recent of5 resultswithin the time period is included. WBC 5.90 4.4 - 11.0 x10'3/uL 05/07/2025 7:04 AM [facility] RBC 3.59(L) 4.50 - 5.10 x10'6/uL 05/07/2025 7:04 AM [facility] HGB 11.1(L) 12.3 - 15.3 G/DL 05/07/2025 7:04 AM [facility] HCT 33.7(L) 35.9 - 44.6 % 05/07/2025 7:04 AM [facility] MCV 93.9 80.0 - 96.0 FL 05/07/2025 7:04 AM [facility] MCH 30.9 25.3 - 30.9 PG 05/07/2025 7:04 AM [facility] MCHC 32.9 31.0 - 34.1 G/DL 05/07/2025 7:04 AM [facility] RDW 12.2(L) 12.4 - 15.1 % 05/07/2025 7:04 AM [facility] PLT 192 151 - 353 x10'3/uL 05/07/2025 7:04 AM [facility] MPV 11.9 9.6 - 12.0 FL 05/07/2025 7:04 AM [facility] RBC MORPHOLOGY NORMAL 05/07/2025 7:04 AM [facility] PLT MORPH. NORMAL 05/07/2025 7:04 AM [facility] WBC MORPHOLOGY NORMAL 05/07/2025 7:04 AM [facility] LYMPHOCYTES % 33.4 15.8 - 45.0 % 05/07/2025 7:04 AM [facility] NEUTROPHILS % 55.6 42.1 - 71.9 % 05/07/2025 7:04 AM [facility] MONOCYTES % 8.6 5.7 - 12.5 % 05/07/2025 7:04 AM [facility] EOSINOPHILS 1.4 0.0 - 5.6 % 05/07/2025 7:04 AM [facility] BASOPHILS 0.7 0.0 - 1.3 % 05/07/2025 7:04 AM [facility] ABS. NEUTROPHILS 3.28 1.40 - 6.00 x10'3/uL 05/07/2025 7:04 AM [facility] IMMATURE GRANS % 0.3 0.0 - 0.5 % 05/07/2025 7:04 AM [facility] ABS. LYMPHOCYTES 1.97 0.80 - 4.70 x10'3/uL 05/07/2025 7:04 AM [facility] 05/07/2025 6:39 AM FUTURES TRADER Moo England MD LABORATORY Final Result [facility] [address] [place] [address], * (ABNORMAL) COMPREHENSIVE METABOLIC PANEL (05/04/2025 6:37 AM FUTURES TRADER) Only the most recent of2 resultswithin the time period is included. [facility] GLUCOSE 97 70 - 99 MG/DL 05/04/2025 7:45 AM [facility] BUN 5(L) 7 - 18 MG/DL 05/04/2025 7:45 AM [facility] CREATININE S/P/B 0.79 0.55 - 1.02 MG/DL 05/04/2025 7:45 AM [facility] SODIUM S/P/B 141 136 - 145 MMOL/L 05/04/2025 7:45 AM [facility] POTASSIUM S/P/B 3.6 3.5 - 5.1 MMOL/L 05/04/2025 7:45 AM [facility] CHLORIDE S/P/B 104 100 - 108 MMOL/L 05/04/2025 7:45 AM [facility] CO2 32.6(H) 21 - 32 MMOL/L 05/04/2025 7:45 AM [facility] CALCIUM S/P/B 8.5 8.5 - 10.1 MG/DL 05/04/2025 7:45 AM [facility] BILIRUBIN TOTAL S/P/B 0.9 0.2 - 1.2 MG/DL 05/04/2025 7:45 AM [facility] TOTAL PROTEIN S/P/B 6.0(L) 6.4 - 8.2 G/DL 05/04/2025 7:45 AM [facility] ALBUMIN S/P/B 3.1(L) 3.4 - 5.0 G/DL 05/04/2025 7:45 AM [facility] AST 13(L) 15 - 37 U/L 05/04/2025 7:45 AM [facility] ALT 11(L) 14 - 55 U/L 05/04/2025 7:45 AM [facility] ALKALINE PHOSPHATASE S/P/B 62 50 - 136 U/L 05/04/2025 7:45 AM [facility] ANION GAP 4.4(L) 5 - 15 MMOL/L 05/04/2025 7:45 AM [facility] BUN CREATININE RATIO 6.3 6 - 26 05/04/2025 7:45 AM [facility] A/G RATIO 1.1 1.0 - 2.0 RATIO 05/04/2025 7:45 AM [facility] GFR ESTIMATE 78(L) >90 ML/MIN/1.7 3 M2 05/04/2025 7:45 AM [facility] Comment: NOTE: eGFR is not calculated for patients <18 years of age. This is an estimated GFR calculation using the new CKD EPI creatinine equation without race and so does not require a correction factor for race. This estimated GFR should not be used for calculating drug doses. 05/04/2025 6:37 AM FUTURES TRADER us Candida Rashid NP LABORATORY Final Result Performing Organization Address City/[facility]/ZIP Co de Phone Number [facility] [address] [place] [address], * MAGNESIUM (05/04/2025 6:37 AM FUTURES TRADER) MAGNESIUM 1.8 1.8 - 2.4 MG/DL 05/04/2025 7:45 AM FUTURES TRADER [facility] 05/04/2025 6:37 AM FUTURES TRADER us Candida Rashid NP LABORATORY Final Result [facility] [address] [place] [address], [place] [phone] * (ABNORMAL) Urinalysis, Auto, Complete (05/03/2025 6:29 PM CDT) COLOR (U) YELLOW 05/03/2025 7:27 PM CDT [facility] TRANSPARENCY CLEAR 05/03/2025 7:27 PM CDT [facility] SPECIFIC GRAVITY (U) 1.010 1.000 - 1.030 05/03/2025 7:27 PM CDT [facility] U PH 7.0 5.0 - 9.0 05/03/2025 7:27 PM CDT [facility] LEUKOCYTES (U) 1+(A) NEGATIVE 05/03/2025 7:27 PM CDT [facility] NITRITES NEGATIVE NEGATIVE 05/03/2025 7:27 PM CDT [facility] PROTEIN RANDOM (U) NEGATIVE NEGATIVE 05/03/2025 7:27 PM CDT [facility] GLUCOSE (U) NEGATIVE NEGATIVE 05/03/2025 7:27 PM T [facility] KETONES MG/DL (U) NEGATIVE NEGATIVE 05/03/2025 7:27 PM T [facility] BILIRUBIN (U) NEGATIVE NEGATIVE 05/03/2025 7:27 PM CDT [facility] BLOOD (U) NEGATIVE NEGATIVE 05/03/2025 7:27 PM T [facility] WBC/HPF 5-10 0 - 5 /HPF 05/03/2025 7:27 PM CDT [facility] RBC/HPF 0-5 0 - 5 /HPF 05/03/2025 7:27 PM CDT [facility] EPI/HPF RARE /HPF 05/03/2025 7:27 PM T [facility] URINE SPECIMEN OBTAINED BY CLEAN CATCH PROCEDURE / Unknown 05/03/2025 6:29 PM CDT us Krunal Hines MD URINE ORDERABLES Final Result [facility] [address] [place] [address], [place] [phone] * CULTURE, BACTERIA, BLOOD (05/03/2025 12:01 PM CDT) Only the most recent of2 resultswithin the time period is included. SPEC DESCRIPTION BLOOD 05/03/2025 11:33 AM CDT [facility] SPECIAL REQUESTS NO SPECIAL REQUEST 05/03/2025 11:33 AM CDT [facility] CULTURE RESULT NO GROWTH 5 DAYS 05/09/2025 12:53 PM FUTURES TRADER [facility] BLOOD SPECIMEN OBTAINED FOR BLOOD CULTURE / Unknown 05/03/2025 12:01 PM CDT 05/03/2025 12:02 PM CDT Krunal Hines MD MICROBIOLOGY - GENERAL ORDERABL ES Final Result [facility] [address] [place] [address], [place] [phone] [facility] [address] [place] [address], [place] [phone] * CT ABD+PEL W CON (05/03/2025 10:40 AM CDT) Anatomical Region Laterality Modality Abdomen Computed Tomogra phy 05/03/2025 10:5 2 AM CDT Impressions 05/03/2025 10:55 AM CDT Impression: Acute sigmoid colon diverticulitis. No perforation or abscess. Referred By: Interpreted By: Pete Connor MD, 05/03/2025 10:52 AM Narrative 05/03/2025 10:55 AM CDT [facility] [address] [place] [address] Examination: CT ABD+PEL W CON Exam time: 05/03/2025 10:27 AM Clinical Information: general abd pain x Monday unable to urinate with diarrhea HX GERD and stroke HX hysterectomy, appendectomy and cardiac stents Comparison:None Technique: IV contrast: 100 mL Isovue 370. Technical comments: Standard technique. Dose reduction: This CT exam was performed using one or more of the following dose reduction techniques: Automated exposure control, adjustment of the mA and/or kV according to patient size, and/or use of iterative reconstruction technique. Findings: LOWER CHEST Coronary artery calcifications. Aortic annulus calcifications. Aortic wall calcifications. UPPER ABDOMEN Liver and bile ducts: Fatty liver pattern or portal venous phase contrast. No mass. Normal in size and contour. No biliary dilatation. Gallbladder: No gallbladder wall thickening or pericholecystic fluid. Pancreas: Negative. Spleen: Negative. Stomach: No hiatal hernia. No acute finding. RETROPERITONEUM Adrenals: Negative. Kidneys: Tiny probable cysts. Nonspecific bilateral perinephric stranding. No enhancing mass. No obstruction.. Lymph nodes: No lymphadenopathy in the abdomen or pelvis. BOWEL AND PERITONEUM Bowel: Duodenal diverticulum. Diverticulitis of the sigmoid colon with mild adjacent inflammatory changes and calcification. No abscess or perforation. No obstruction. No significant ascites. VASCULATURE Visceral arteries and portal venous system are patent. No AAA. Arterial plaque disease. PELVIS No bladder abnormality. Hysterectomy. Sigmoid colon diverticulitis inflammatory changes. BONES/SOFT TISSUES Degenerative osseous changes. Procedure Note Pete Connor MD - 05/03/2025 [facility] [address] [place] [id number] Examination: CT ABD+PEL W CON Exam time: 05/03/2025 10:27 AM Clinical Information: general abd pain x Monday unable to urinate with diarrhea HX GERD and stroke HX hysterectomy, appendectomy and cardiac stents Comparison:None Technique: IV contrast: 100 mL Isovue 370. Technical comments: Standard technique. Dose reduction: This CT exam was performed using one or more of thefollowing dose reduction techniques: Automated exposure control,adjustment of the mA and/or kV according to patient size, and/or use ofiterative reconstruction technique. Findings: LOWER CHEST Coronary artery calcifications. Aortic annulus calcifications. Aorticwall calcifications. UPPER ABDOMEN Liver and bile ducts: Fatty liver pattern or portal venous phase contrast.No mass. Normal in size and contour. No biliary dilatation. Gallbladder: No gallbladder wall thickening or pericholecystic fluid. Pancreas: Negative. Spleen: Negative. Stomach: No hiatal hernia. No acute finding. RETROPERITONEUM Adrenals: Negative. Kidneys: Tiny probable cysts. Nonspecific bilateral perinephricstranding. No enhancing mass. No obstruction.. Lymph nodes: No lymphadenopathy in the abdomen or pelvis. BOWEL AND PERITONEUM Bowel: Duodenal diverticulum. Diverticulitis of the sigmoid colon withmild adjacent inflammatory changes and calcification. No abscess orperforation. No obstruction. No significant ascites. VASCULATURE Visceral arteries and portal venous system are patent. No AAA. Arterial plaque disease. PELVIS No bladder abnormality. Hysterectomy. Sigmoid colon diverticulitis inflammatory changes. BONES/SOFT TISSUES Degenerative osseous changes. Impression: Acute sigmoid colon diverticulitis. No perforation or abscess. Referred By: Interpreted By: Pete Connor MD, 05/03/2025 10:52 AM us Krunal Hines MD CT Final Result * LACTIC ACID - SINGLE (05/03/2025 9:24 AM CDT) Pathologist [facility] LACTIC ACID VENOUS 2.0 0.4 - 2.0 MMOL/L 05/03/2025 9:52 AM CDT [facility] 05/03/2025 9:24 AM CDT us Krunal Hines MD LABORATORY Final Result [facility] [address] [place] [address], [place] [phone] * BETA-HYDROXYBUTYRATE (05/03/2025 9:20 AM CDT) Pathologist [facility] BETA-HYDROXYBUT YRATE 0.2 0.0 - 0.6 MMOL/L 05/03/2025 10:01 AM CDT [facility] 05/03/2025 9:20 AM CDT us Krunal Hines MD LABORATORY Final Result Performing Organization Address City/[facility]/ZIP Co de Phone Number [facility] [address] [place] [address], [place] [phone] * TROPONIN, QUANT (05/03/2025 9:20 AM CDT) TROPONIN I HIGH SENSITIVITY 6 0 - 50 ng/L 05/03/2025 9:51 AM CDT [facility] Comment: HIGH DOSES OF BIOTIN, TROPONIN-SPECIFIC AUTOANTIBODIES, AND ANTIBODY THERAPY CONTAINING HAMA MAY INTERFERE WITH THIS TEST RESULT. CORRELATION TO CLINICAL HISTORY AND PRESENTATION RECOMMENDED. 05/03/2025 9:20 AM CDT us Krunal Hines MD LABORATORY Final Result Performing Organization Address [facility]/ZIP Co de Phone Number [facility] [address] [place] [address], [place] [phone] * LIPASE (05/03/2025 9:20 AM CDT) LIPASE 23 16 - 77 UNITS/L 05/03/2025 9:46 AM CDT [facility] 05/03/2025 9:2 0 AM CDT us Krunal Hines MD LABORATORY Final Result Performing Organization Address City/[facility]/ZIP Co de Phone Number [facility] [address] [place] [address], [place] [phone] * CK (CPK) (05/03/2025 9:20 AM CDT) CPK 147 26 - 192 U/L 05/03/2025 9:46 AM CDT [facility] 05/03/2025 9:20 AM CDT Krunal Hines MD LABORATORY Final Result [facility] [address] [place] [address], * MG DIAG W FLAKITO LT DIGI (10/18/2024 2:37 PM CDT) Anatomical Region Laterality Modality Breast Left Mammography, Rad iographic Imaging 10/18/2024 2:17 PM CDT Impressions 10/18/2024 2:22 PM CDT ===== IMPRESSION: ===== 1. No mammographic evidence of malignancy. Assessment: ACR BI-RADS 2 - BENIGN FINDING(S) Recommendation: 1:Routine Screening Bilateral Comments: Ordered By: SLIME NAYLOR Interpreted By: Marija Leone, 10/18/2024 2:17 PM Narrative 10/18/2024 2:22 PM CDT [facility] [address] [place] [address] EXAMINATION: Digital left diagnostic mammogram with 3-D tomography. Left breast ultrasound [id number] EXAM DATE/TIME: 10/18/2024 12:55 PM REASON FOR EXAM: ABN MAMM COMPARISON: 04/17/2024. 02/26/2024. 04/19/2019. TECHNIQUE: Digital diagnostic mammography of the left breast was performed in addition to 3-D Tomosynthesis technique. This study was read with the assistance of a computer-aided detection system. TISSUE DENSITY: There are scattered areas of fibroglandular density. Findings:Less prominent subtle nodule within the upper outer quadrant of the left breast.. No new area of focal asymmetry, dominant mass lesion, area of skin thickening, or cluster of suspicious appearing calcifications in the breast to suggest malignancy. . Left breast ultrasound. Imaging at the 2:00 position left breast. 9 cm from the nipple. There is underlying well-defined cystic area. Difficult to clear out internal echogenicity due to its small size and deeper location. Smaller than on prior exam. Measures 2.2 x 1.9 x 2.1 mm. Prior measurement of 3.0 x 2.6 x 3.4 mm us Slime Naylor PA-C MAMMO Final Resu [...] MD, 02/26/2024 2:27 PM us Slime Naylor PA-Shaka DEXA Final Resu lt * (ABNORMAL) LIPID PANEL (07/31/2023 5:15 AM FUTURES TRADER) [facility] CHOLESTEROL 169 <200.0 MG/DL 07/31/2023 6:21 AM [facility] TRIGLYCERIDES 117 <150 MG/DL 07/31/2023 6:21 AM [facility] HDL 40(L) >40.0 MG/DL 07/31/2023 6:21 AM [facility] LDL (CALCULATED) 106(H) <100 MG/DL 07/31/2023 6:21 AM [facility] NON HDL CHOLESTEROL 129 <130 MG/DL 07/31/2023 6:21 AM [facility] CHOL/HDL RATIO 4.2 0.0 - 4.5 07/31/2023 6:21 AM [facility] VLDL CALCULATION 23 5 - 55 MG/DL 07/31/2023 6:21 AM [facility] LIPID INTERPRETATION 07/31/2023 6:21 AM [facility] Comment: [facility] CONCENSUS REPORT RECOMMENDATIONS: ADULT CHILD LOW RISK: CHOLESTEROL <200 <170 TRIGLYCERIDE <150 --- HDL >=60 --- LDL <100 <110 BORDERLINE: CHOLESTEROL 200-239 170-199 TRIGLYCERIDE 150-199 --- HDL 40-59 --- LDL 100-159 110-129 HIGH RISK: CHOLESTEROL >=240 >=200 TRIGLYCERIDE >=200 --- HDL <40 --- LDL >=160 >=130 07/31/2023 5:15 AM FUTURES TRADER us Moo England MD LABORATORY Final Result [facility] [address] [place] [address], * CT CHEST W CON (03/12/2021 1:23 [...] or Most Recently Relevant to Health Maintenance Insurance [place] [address] [place] [id number] [facility] Advance Directives * Full Code (Latest Code Status on File) Date Activated Date Inactivated Comments 05/03/2025 12:18 PM 05/07/2025 3:44 PM * Full Code Date Activated Date Inactivated Comments 07/30/2023 2:56 PM 08/01/2023 2:44 PM * Full Code Date Activated Date Inactivated Comments 05/15/2021 7:18 AM 05/16/2021 12:53 PM * Full Code Date Activated Date Inactivated Comments 05/04/2021 12:39 PM 05/07/2021 4:25 PM Care Teams Furnace Cleaner Relationship Specialty Start Date End Date Slime Naylor PA-C [address] [place] [address] PCP - General PHYSICIAN SILK WASHING MACHINE OPERATOR 02/09/22 Jose Cruz Pedro MD [address] [address] CARDIOVASCULAR DISEASE 05/12/21
--- OUTSIDE RECORDS SUMMARY | 2025-06-14 11:51 | XMS_ITS | Encounter Summary ---
Author Organization [facility] Address [address] [place] [address] Care Team Providers Care Senior Administrative Assistant Name Role Phone Jose Cruz Pedro MD Unavailable [phone] Juli Koroma PA-C Primary Care Provider [phone] Encounter Details Date Type Department Care Team (Latest Contact Info) Description 05/12/2025 [employer] Message Enc [facility] [place] [address] [id number] [facility] Referral Social History Tobacco Use Types Packs/Day Years Used Date Smoking Tobacco: Former Cigarettes 1.5 40 0 07/03/1978 - 07/03/2018 Smokeless Tobacco: Never Alcohol Use Standard Drinks/Week Comments Not Currently 1 (1 standard drink = 0.6 oz pure alcohol) rarely, once a year has a drink [facility] Utilities Answer Date Recorded In the past 12 months has [employer], gas, oil, or [employer] threatened to shut off services in your [...] How often do you attend chur or congregation services? 1 to 4 times per year 07/30/2023 Do you belong to any clubs o r organizations such as episcopal groups, unions, fraternal or athletic groups, or [...] Recorded Patient Health Questionnaire-2 Score 0 05/01/2025 [facility] - Occupational Stress [...] place to sleep or slept in a custodial (including now)? No 07/30/2023 Humiliation, Afraid, Rape, [...] any time in the past 12 m [facility], were you homeless or living in a custodial (including now)? No 05/03/2025 [facility] Utilities Answer Date Recorded In the past 12 months has th e electric, gas, oil, or water company threatened to shut off services in your home? No 05/03/2025 Comments No Sex and Gender Information Value Date Recorded Sex Assigned at Female 11/21/2023 12:18 PM CDT Legal Sex Female 7:09 PM CDT Gender Identity Female 11/21/2023 12:18 PM CDT Sexual Orientation Not on file documented as of this encounter Functional Status * Are you deaf or do you have serious difficulty hearing Answer Date of Assessment Author Status No 05/03/2025 2:10 PM CDT Lily Gongora RN Active * Are you blind or do you have serious difficulty seeing, even when wearing glasses? Answer Date of Assessment Author Status No 05/03/2025 2:10 PM ANGIET Lily Gongora RN Active * Do you have serious difficulty walking or climbing stairs? Answer Date of Assessment Author Status No 05/03/2025 2:10 PM ANGIET Lily Gongora RN Active * Do you have difficulty dressing or bathing? Answer Date of Assessment Author Status No 05/03/2025 2:10 PM ANGIET Lily Gongora RN Active * Because of a physical, mental, or emotional condition, do you have difficulty doing errands alone such as visiting a doctor's office or shopping? Answer Date of Assessment Author Status No 05/03/2025 2:10 PM CDT Lily Gongora RN Active documented as of this encounter Mental Status * Because of a physical, mental, or emotional condition, do you have serious difficulty concentrating, remembering, or making decisions? Answer Entry Date Author Status No 05/03/2025 2:10 PM CDT Lily Gongora RN Active documented in this encounter Plan of Treatment Upcoming Encounters Date Type Department Care Team (Late st Contact Info) Description 10/07/2025 11:40 AM CDT Office Visit [facility] - [facility] [address] [facility], [address] [place] [address] Tony Saldivar MD [address] [place] [address] 10/31/2025 2:00 PM CDT Appointment [facility] [address] [place], [place] [id number] Martin Garcia MD [facility]. [address] [place], [place] [id number] documented as of this encounter Goals Goal Patient Goal Type Associated Problems Recent Progress Patient-Stated? Author Patient will return to prior living situation and remain independent in ADLs upon discharge from hospital General No Leslie Foreman RN documented as of this encounter Visit Diagnoses Not on filedocumented in this encounter Care Teams Senior Administrative Assistant Relationship Specialty Start Date End Date Juli Koroma PA-C [facility] [place], [place] [id number] PCP - General PHYSICIAN SANITARY PLUMBER 02/09/22 Jose Cruz Pedro MD [address] [address] CARDIOVASCULAR DISEASE 05/12/21 documented as of this encounter
--- OUTSIDE RECORDS SUMMARY | 2025-06-14 11:52 | XMS_ITS | Clinical Summary ---
Author Organization [facility] [address] Address [address] [place] [address] Care Team Providers Care Service Dog Trainer Name Role Phone Juli Koroma Primary Care Provider [phone] Allergies Active Allergy Reactions Criticality Noted Date [...] mg total) by mouth daily Active levothyroxine sodium (LEVOTHYROXINE ORAL) [address] (PROTONIX) 40 mg EC tablet Take 1 tablet (40 mg total) by mouth 2 (two) times a day 0 Active cyanocobalamin (Vitamin B-12) 1,000 mcg tabletIndication s:Prevention of Vitamin B12 Deficiency Take 1 tablet (1,000 mcg total) by mouth daily Active clopidogreL (PLAVIX) 75 mg tablet Take 1 tablet (75 mg total) by mouth daily 2 Active cholecalciferol (VITAMIN D-3) 2000 unit tablet [...] eyes 2 (two) times a day Active vit C/E/zinc ox/hernan/lut/zeax (ICAPS AREDS2 ORAL) Take by mouth Active ezetimibe (ZETIA) 10 mg tablet TAKE 1 TABLET(10 MG) BY MOUTH DAILY 90 tablet 2 5 Active amoxicillin-clav ulanate (AUGMENTIN) 875-125 mg per tablet Take 1 tablet by mouth 2 (two) times a day 5 Active Active Problems Problem Noted Date Diagnosed Date Coronary artery disease invo lving [facility] coronary artery of [facility] heart without angina pectoris 06/22/2017 History of coronary artery stent placement 06/22 Encounters Date Type Department Care Team Description 05/08/2025 10:15 AM ENERGY MANAGER Office Visit [facility] Cardiology [address] [facility] [address] [place] [address] Jose Cruz Pedro MD Coronary artery disease involving [facility] coronary artery of [facility] heart without angina pectoris (Primary Dx); History [...] on file Legal Sex Female 2:46 AM ENERGY MANAGER Gender Identity Not on file Sexual Orientation Not on file Last Filed Vital Signs Vital Sign Reading Time Taken Comments Blood Pressure 124/66 05/08/2025 10:21 AM ENERGY MANAGER Pulse 91 05/08/2025 10:21 AM ENERGY MANAGER Temperature - - Respiratory Rate - - Oxygen Saturation 98% 05/08/2025 10: 21 AM ENERGY MANAGER Inhaled Oxygen Concentration - - Weight 67.5 kg (148 lb 14.4 oz) 025 10:21 AM ENERGY MANAGER Height 152.4 cm (5') 05/08/2025 10:21 AM ENERGY MANAGER Body Mass Index 29.08 05/08/2025 10:21 AM ENERGY MANAGER Plan of Treatment Health Maintenance Due Date Last Done Comments Colon Cancer Screening-Colonoscopy 1950 Depression Screening 1950 Fall Risk Assessment 1950 Hepatitis C Screening 1950 DTaP/Tdap/Td Vaccine (1 - Tdap) 1961 Hepatitis B Screening 1968 Well Visit 65+ 10/17/2015 Zoster Vaccine (2 of 3) 04/23/2016 02/27/2016 Breast Cancer Screening-Mammogram 02/25/2025 02/26/2024, 02/26/2024, 04/19/2019 Influenza Vaccine (#1) 2025 , 04/11/2022, 06/09/2021, Additional history exists Osteoporosis Screening-Bone Density Scan 02/25/2026 02/26/2024 Pneumococcal vaccine 65+ Completed 03/08/2017, 02/01 [place] [address] [facility] MEDICARE SUPPLEMENT Care Teams Service Dog Trainer Relationship Specialty Start Date End Date Juli Koroma PA [facility] [place] [address] PCP - General Family Practice 10/29/24
[2025-06-14 11:57] VITALS: BP 123/77; PULSE 112; RESP 18; TEMP 36.4; O2SAT 100
[2025-06-14 12:13] LABS: EDUAAPPEAR Cloudy; EDUABILI 1+ (Negative); EDUABLOOD 3+ (Negative); EDUACOLOR1 Yellow; EDUAGLUCOSE Negative (Negative); EDUAKETONE Trace (Negative); EDUALEUKO 3+ (Negative); EDUANITRATE Negative (Negative); EDUAPH 6.5; EDUAPROTEIN 3+ (Negative); EDUASPGRAVITY 1.020; EDUAUROBILI 0.2
--- NOTE | 2025-06-14 12:31 | ED.FEMALEGU ---
HPI - Female Genitourinary General Chief complaint: Urogenital-Female Stated complaint: UTI Time Seen by Provider: 06/14/25 12:10 Source: patient and RN notes reviewed Mode of arrival: ambulatory Limitations: no limitations History of Present Illness HPI Narrative: 74-year-old female presents Express Care complaining of urinary symptoms since this morning.. Patient reports having dysuria, increased frequency, suprapubic pressure, hesitancy, blood in her urine. Patient denies any fevers, abdominal pain, body aches, chills, nausea, vomiting, diarrhea, vaginal bleeding, vaginal discharge. Patient has not taken anything [id number] for symptoms. Patient has a history of urinary tract infections and diverticulitis. She was recently admitted in hospital approximately 1 month ago for diverticulitis. Related Data Home Medications ?Medication ?Instructions ?Recorded ?Confirmed ?Last Taken ?Type cholecalciferol (vitamin D3) 50 50 mcg PO HS 01/17/20 05/09/25 08/21/24 History mcg (2,000 unit) capsule (Vitamin D3) ferrous gluconate 324 mg (37.5 mg 324 mg PO HS 01/17/20 05/09/25 08/21/24 History iron) tablet vitamin B complex (B 1 tablet PO HS 01/17/20 05/09/25 01/26/20 21:00 History Complex-Vitamin B12 tablet) coenzyme Q10 200 mg capsule 200 mg PO DAILY 03/25/22 05/09/25 08/21/24 History aspirin 81 mg tablet,delayed 81 mg PO DAILY 08/08/23 05/09/25 08/21/24 History release ezetimibe 10 mg tablet (Zetia) 10 mg PO DAILY 01/09/24 05/09/25 08/21/24 History levothyroxine 50 mcg tablet 50 mcg PO DAILY 02/27/25 05/09/25 Unknown History (Euthyrox) Allergies Allergy/AdvReac Type Severity Reaction Status Date / Time hydralazine Allergy Intermediate Palpitation Verified 06/14/25 11:54 s adhesive tape AdvReac Mild REDNESS Verified 06/14/25 11:54 clindamycin AdvReac Mild Rash Verified 06/14/25 11:54 Review of Systems Review of Systems: CONSTITUTIONAL: Denies fever, chills, body aches, or sweats. EYES: Denies visual changes, redness, or discharge. ENT: Denies rhinorrhea, congestion, sore throat, or otalgia. CARDIOVASCULAR: Denies chest pain, palpitations, or edema. RESPIRATORY: Denies cough or dyspnea. GASTROINTESTINAL: Denies abdominal pain, nausea, vomiting, or diarrhea. GENITOURINARY: Positive for dysuria, increased frequency, hematuria, suprapubic pressure. Negative for vaginal bleeding or discharge. SKIN: Denies rash or itching. MUSCULOSKELETAL: Denies back pain, joint pain, or myalgia. NEUROLOGIC: Denies headache, numbness, or weakness. PSYCHIATRIC: Denies anxiety or depression. All other systems reviewed are negative, except as documented in HPI. [facility] Past Medical History Medical History Cough Dry eyes, bilateral Stroke Anemia Depression Anxiety Hypothyroidism Back pain Hemorrhoids Gastroesophageal reflux disease DYSPHAGIA, ESOPHAGEAL STRICTURE- DILATED IN PAST COPD (chronic obstructive pulmonary disease) HX LONG TERM SMOKER HTN (hypertension) Hypercholesterolemia CAD (coronary artery disease) 1 STENT 2012 Hx of transient ischemic attack (TIA) X2 Surgical History Surgical History History of hysterectomy still has ovaries History of left-sided carotid endarterectomy Hx of cardiac catheterization 1 2012 Family History Family History Sibling Depression Cerebrovascular accident Thyroid disorder Other Cancer Social History Social History Social History: 11/11/24 very confident with medical form 05/08/25 declined [facility] Smoking packs per day: 2 Smoking cigarettes per day: 40.0 Years smoked: 60 Smoking pack-years: 120.00 Smoking status: Former smoker Tobacco type: cigarettes Second hand tobacco smoke exposure: No Alcohol intake: current Substance use: never Substance use type: does not use Lack of Transportation: No Lack of Food: Never True Current Housing: I Have Housing Concerned About Future Housing: No Difficulty Paying Gas/Electric Bills: No Difficulty Paying for Meds: No Currently Unemployed: No Education: High School Diploma/GED Difficulty w/ Childcare or Family Care: No Living arrangements: with family Occupation/Education: occupation Gender identity (if verbalized by the patient): Female Sexual Orientation (if Verbalized by the Patient): Straight or Heterosexual Spiritual care concerns: No Comments At the time of my signature, I reviewed and agree with the nursing past medical, surgical, social, and family history. There is no relevant family history pertinent to the patient complaint. Exam Narrative: GENERAL: This is a well-nourished, well-developed adult, in no apparent distress. They are non ill-appearing, nontoxic appearing. HEAD: normocephalic, atraumatic. EYES: Sclera clear/white. Vision is grossly intact. Conjunctiva normal bilaterally. Extraocular movements intact. EARS: External ears normal,Hearing grossly intact. NOSE: External nose normal THROAT: Mucous membranes moist NECK: Normal range of motion CARDIOVASCULAR: Regular rate and rhythm. Normal S1-S2. No clicks, gallops, rubs, murmurs. RESPIRATORY: Respiratory rate normal, respiratory effort nonlabored, no respiratory distress. Lung sounds clear to auscultation throughout. Lung sounds equal bilaterally. No adventitious lung sounds. GASTROINTESTINAL: Abdomen soft, flat, non-tender, nondistended. Bowel sounds are active. No hepato-splenomegaly, or palpable masses. No guarding or rigidity. No rebound tenderness. SKIN: warm, Dry, intact with no suspicious lesions or rash, good texture and turgor. NEURO: awake, alert, and oriented to person, place and time. There were no obvious focal neurologic abnormalities. EXTREMITIES: No joint tenderness, effusion, or edema noted. BACK: Nontender without deformity. No CVA tenderness. Course Course Level of Care: Express Care Visit Vital Signs Vital signs: Vital Signs Temperature 97.5 F L 06/14/25 11:57 Pulse Rate 112 H 06/14/25 11:57 Respiratory Rate 18 06/14/25 11:57 Blood Pressure 123/77 06/14/25 11:57 Pulse Oximetry 100 06/14/25 11:57 Oxygen Delivery Room Air 06/14/25 11:57 Temperature 97.5 F L 06/14/25 11:57 Pulse Rate 112 H 06/14/25 11:57 Respiratory Rate 18 06/14/25 11:57 Blood Pressure 123/77 06/14/25 11:57 Pulse Oximetry 100 06/14/25 11:57 Oxygen Delivery Room Air 06/14/25 11:57 [facility] MDM Narrative Medical decision making narrative: Urine dipstick shows evidence of urinary tract infection. Urine culture pending. Symptoms clinically consistent with urinary tract infection. Previous culture shows resistance to Cipro and Bactrim. Will treat with Augmentin. Discussed physical exam findings. Advised supportive measures and signs/symptoms to go to the ER. Pt is appropriate for outpt treatment and f/u. Differential Diagnosis Differential Diagnosis: Urinary tract infection, cystitis, pyelonephritis Lab Data MDM Lab Attestation statement: I personally reviewed the patient's lab results. Labs: Lab Results 06/14/25 Range/Units 12:05 POC Urine Color Yellow POC Urine Clarity Cloudy POC Urine pH 6.5 POC Ur Specif [place] 1.020 POC Urine Protein 3+ (Negative) POC Ur Glucose (UA) Negative (Negative) POC Urine Ketones Trace (Negative) POC Urine Blood 3+ (Negative) POC Urine Nitrite Negative (Negative) POC Urine Bilirubin 1+ (Negative) POC Urine Urobilinogen 0.2 POC U Leukocyte Esteras 3+ (Negative) Discharge Plan Discharge Clinical Impression: Urinary tract infection Qualifiers: Urinary tract infection type: site unspecified Hematuria presence: with hematuria Qualified Code(s): N39.0 - Urinary tract infection, site not specified Patient Disposition: Home Condition: Stable Instructions: Antibiotic Form, Urinary Tract Infection in Older Adults (ED) Additional Instructions: Take the antibiotic as prescribed The urine will be sent of for a culture to identify what type of bacteria is causing your infection. If the culture shows that the antibiotic will not get rid of your infection, you will be notified and a new antibiotic will be called in for you. Increase water intake you will need to follow up with your PCP 3-5 days. Go to the ER for any worsening symptoms, abdominal pain, flank pain, fevers, nausea, vomiting, or any other concerns Patient Language: Citizen [place] Prescriptions: New amoxicillin-pot clavulanate 875-125 mg tablet 1 tablet PO Q12H 5 Days Qty: 10 0RF No Action coenzyme Q10 200 mg capsule 200 mg PO DAILY [email or web address] 1.5 billion cell capsule 1 cap PO .qd Qty: 30 0RF aspirin 81 mg tablet,delayed release (DR/EC) 81 mg PO DAILY nitroglycerin 0.4 mg tablet, sublingual 0.4 mg sublingual BID PRN (Reason: Chest Pain) Qty: 25 0RF ezetimibe [Zetia] 10 mg tablet 10 mg PO DAILY fluconazole 150 mg tablet 150 mg PO ONCE Qty: 2 0RF Rx Instructions: take one tab x1 then repeat 3d cyclobenzaprine 5 mg tablet 5 mg PO TID PRN (Reason: muscle spasm) Qty: 30 0RF vitamin B complex [B Complex-Vitamin B12] Tablet 1 tablet PO HS cholecalciferol (vitamin D3) [Vitamin D3] 50 mcg (2,000 unit) Capsule 50 mcg PO HS ferrous gluconate 324 mg (37.5 mg iron) Tablet 324 mg PO HS pravastatin 40 mg tablet 40 mg PO QHS Qty: 90 0RF levothyroxine [Euthyrox] 50 mcg tablet 50 mcg PO DAILY clopidogrel 75 mg tablet 75 mg PO DAILY Qty: 90 0RF levothyroxine [Synthroid] 50 mcg tablet 50 mcg PO DAILY Qty: 90 0RF fluoxetine [Prozac] 10 mg capsule 10 mg PO DAILY Qty: 90 0RF montelukast 10 mg tablet 10 mg PO QHS Qty: 90 1RF benazepril 20 mg tablet 20 mg PO DAILY Qty: 90 0RF pantoprazole 40 mg tablet,delayed release (DR/EC) 40 mg PO BID Qty: 180 0RF Follow-up/Referrals: Juli Koroma PA-C [Primary Care Provider, Family Practice] Time of Disposition: 12:24
== END 2025-06-14 12:28 | disposition home or self-care (01) ==
PROVIDERS: PCP Physician Assistant Medical
DX: N39.0 Urinary tract infection, site not specified (principal); I10 Essential (primary) hypertension; I25.10 Atherosclerotic heart disease of native coronary artery without angina pectoris; J44.9 Chronic obstructive pulmonary disease, unspecified; K21.9 Gastro-esophageal reflux disease without esophagitis; E03.9 Hypothyroidism, unspecified; D64.9 Anemia, unspecified; Z86.73 Personal history of transient ischemic attack (TIA), and cerebral infarction without residual deficits; E78.00 Pure hypercholesterolemia, unspecified; F41.9 Anxiety disorder, unspecified; F32.A Depression, unspecified; Z79.82 Long term (current) use of aspirin; Z95.5 Presence of coronary angioplasty implant and graft; Z87.891 Personal history of nicotine dependence
CPT/HCPCS: 81003; 87086; 87186; 99213; G0463

== ENCOUNTER 2025-06-30 10:52 | Emergency (ER) | payer MEDICARE, SELFPAY ==
[2025-06-30 11:05] VITALS: BP 150/85; PULSE 103; RESP 20; TEMP 35.8; O2SAT 98
--- OUTSIDE RECORDS SUMMARY | 2025-06-30 11:28 | XMS_ITS | Clinical Summary ---
Author Organization [facility] [place] Address [address] [place] [address] Care Team Providers Care Direct Customer Service Representative Name Role Phone Jose Cruz Pedro MD Unavailable [phone] Slime Naylor PA-C Primary Care Provider [phone] Allergies Active Allergy Reactions Criticality Noted Date [...] with prior prescription. 6 tablet 5 Active Active Problems Problem Noted Date Diagnosed Date Sepsis 05/03/2025 Hypertensive urgency 07/30/2023 Carotid artery stenosis, symptomatic, left 05/13 Preoperative cardiovascular examination 05/06/20 Assessment & Plan (05/06/2021 12:22 AM CDT): [...] artery disease of n ative artery of [place] heart with stable angina pectoris 05/06/2021 Assessment [...] Date Type Department Care Team Description 05/12/2025 Allan Message Enc [facility] [place] [address] [id number] Allan [facility] Provider Pain Management Referral 05/03/2025 9:11 AM CDT - 05/07/2025 1:39 PM DIGESTER CAPPER Hospital Encounter [facility] Med/Surg [address] [place] [address] Krunal Hines MD Mahtani, Andrew, MD Harris, Michael, MD Abdominal Pain Discharge Disposition: Home or Self Care (Routine Discharge) 05/03/2025 Travel 05/01/2025 3:40 PM CDT Office Visit [facility] Medical Group Multispecialty Care - [facility] [address] [facility] [facility] [address], [address] [place] [address] Tony Saldivar MD Follow Up (Vocal cord paralysis) 05/01/2025 Travel from Last 3 Months Immunizations Immunization Administration Dates Next Due Influenza Adult (Generic) 03/14/2018,03/08/2017, 05/05/2016 Pneumococcal (Pneumovax 23) 03/08/2017 Pneumococcal (Prevnar 13) 02/27/2016 Zoster (Zostavax) 97949 Unt/0.65Ml 02/27/2016 Family History Medical History Relation [...] rarely, once a year has a drink [facility] Measy Answer Date Recorded In the past 12 months has e [employer], or water [employer] threatened to shut off services in your [...] How often do you attend chur or adventism services? 1 to 4 times per year 07/30/2023 Do you belong to any clubs o r organizations such as caodaism groups, unions, fraternal or athletic groups, or [...] Recorded Patient Health Questionnaire-2 Score 0 05/01/2025 [facility] Occupat ional Health - Occupational Stress [...] place to sleep or slept in a mcc (including now)? No 07/30/2023 Humiliation, Afraid, Rape, [...] any time in the past 12 m [facility], were you homeless or living in a mcc (including now)? No 05/03/2025 [facility] Utilities Answer Date Recorded In the past [...] Comments Blood Pressure 126/64 05/07/2025 11:05 AM DIGESTER CAPPER Pulse 71 05/07/2025 11:05 AM DIGESTER CAPPER Temperature 36.3 C (97.4 F) 05/07/2025 11:05 AM DIGESTER CAPPER Respiratory Rate 18 05/07/2025 11:0 5 AM DIGESTER CAPPER Oxygen Saturation 94% 05/07/2025 11: 05 AM DIGESTER CAPPER Inhaled Oxygen Concentration - - Weight 66.6 kg (146 lb 13.2 oz) 05/06/2025 4:32 AM DIGESTER CAPPER Height 152.4 cm (5') 05/03/2025 2:00 PM CDT Body Mass Index 28.68 05/03/2025 2:00 PM CDT Plan of Treatment Upcoming Encounters Date Type Department Care Team (Late st Contact Info) Description 10/07/2025 11:40 AM CDT Office Visit [facility] Medical Group Multispecialty Care - [facility] [address] [facility] [facility] [address], [address] [place] [id number] Tony Saldivar MD [address] [place] [address] 10/31/2025 2:00 PM CDT Appointment [facility] Ultrasound [address] [place], [place] [id number] Martin Garcia MD Three [facility]. [address] [place], [place] [id number] Health Maintenance Due Date Last Done Comments [...] Dexa Scan (General) Completed 02/26/2024 PHQ-2 (Physician [place]) Completed 05/01/2025 Hepatitis A Vaccines Aged Out [...] Foreman RN Medical Devices Implanted Type Area Delivery Room Supervisor Device Identifier Shelf Expiration Date Model / Serial / Lot Lens Lens Bilateral: Eye Stent-08/15/2012 Implanted:08/15 by Jose Cruz Pedro MD (Quantity not on file) Stent Heart / [id number] / [id number] Explanted Type Area Delivery Room Supervisor Device Identifier Shelf Expiration Date Model / Serial / Lot Patch Cv Thk.36mm; Ulthn; Taper 6x.3in Knit; - [id number] Explanted:Qty : 1 on 05/13/2021 by Emmanuel Thomas MD at [facility] Graft Left: Carotid [employer] [id number] 09/30/2025 [id number] / [id number] Description:Left carotid art babak patch Shunt Cantu F3 Carotid With T-Port - [id number] Explanted:Qty : 1 on 05/13/2021 by Emmanuel Thomas MD at [facility] Shunt Left: Carotid [facility] [id number] 08/30/2025 [id number] / 0000 / [id number] Procedures Procedure Name Priority Date/Time Associated Diagnosis Comments BASIC METABOLIC PANEL Routine 05/07/2025 6:39 AM DIGESTER CAPPER CBC W/DIFF AUTOMATED Routine 05/07/2025 6:39 AM DIGESTER CAPPER BASIC METABOLIC PANEL Routine 05/06/2025 6:25 AM DIGESTER CAPPER CBC W/DIFF AUTOMATED Routine 05/06/2025 6:25 AM DIGESTER CAPPER BASIC METABOLIC PANEL Routine 05/05/2025 6:44 AM DIGESTER CAPPER CBC W/DIFF AUTOMATED Routine 05/05/2025 6:44 AM DIGESTER CAPPER HC MAGNESIUM Routine 05/04/2025 6:37 AM DIGESTER CAPPER HC COMPREHENSIVE METABOL PANEL Routine 05/04/2025 6:37 AM DIGESTER CAPPER HC CBC AUTO W/AUTO DIFF Routine 05/04/2025 6:37 AM DIGESTER CAPPER HC URINALYSIS AUTO W/MICRO STAT 05/03/2025 6:29 [...] syndrome LIPID PANEL Routine 07/31/2023 5:[address] CHEST W CON Routine 03/12/2021 1:[address] scan of lung from Last 3 Months or Most Recently Relevant to Health Maintenance Results * (ABNORMAL) BASIC METABOLIC PANEL (05/07/2025 6:39 AM DIGESTER CAPPER) Only the most recent of3 resultswithin the time period is included. GLUCOSE 103(H) 70 - 99 MG/DL 05/07/2025 7:15 AM DIGESTER CAPPER [facility] BUN 4(L) 7 - 18 MG/DL 05/07/2025 7:15 AM DIGESTER CAPPER [facility] CREATININE S/P/B 0.85 0.55 - 1.02 MG/DL 05/07/2025 7:15 AM [facility] SODIUM S/P/B 142 136 - 145 MMOL/L 05/07/2025 7:15 AM [facility] POTASSIUM S/P/B 3.3(L) 3.5 - 5.1 MMOL/L 05/07/2025 7:15 AM [facility] CHLORIDE S/P/B 104 100 - 108 MMOL/L 05/07/2025 7:15 AM [facility] CO2 30.7 21 - 32 MMOL/L 05/07/2025 7:15 AM [facility] CALCIUM S/P/B 9.0 8.5 - 10.1 MG/DL 05/07/2025 7:15 AM [facility] ANION GAP 7.3 5 - 15 MMOL/L 05/07/2025 7:15 AM [facility] BUN CREATININE RATIO 4.7(L) 6 - 26 05/07/2025 7:15 AM [facility] GFR ESTIMATE 72(L) >90 ML/MIN/1.7 3 M2 05/07/2025 7:15 AM [facility] Comment: NOTE: eGFR is not calculated for patients <18 years of age. This is an estimated GFR calculation using the new CKD EPI creatinine equation without race and so does not require a correction factor for race. This estimated GFR should not be used for calculating drug doses. 05/07/2025 6:39 AM DIGESTER CAPPER us Moo England MD LABORATORY Final Result [facility] [address] [place] [address], [place] [phone] * (ABNORMAL) CBC W/DIFF AUTOMATED (05/07/2025 6:39 AM DIGESTER CAPPER) Only the most recent of5 resultswithin the time period is included. WBC 5.90 4.4 - 11.0 x10'3/uL 05/07/2025 7:04 AM [facility] RBC 3.59(L) 4.50 - 5.10 x10'6/uL 05/07/2025 7:04 AM [facility] HGB 11.1(L) 12.3 - 15.3 G/DL 05/07/2025 7:04 AM [facility] HCT 33.7(L) 35.9 - 44.6 % 05/07/2025 7:04 AM [facility] MCV 93.9 80.0 - 96.0 FL 05/07/2025 7:04 AM [facility] MCH 30.9 25.3 - 30.9 PG 05/07/2025 7:04 AM [facility] MCHC 32.9 31.0 - 34.1 G/DL 05/07/2025 7:04 AM [facility] RDW 12.2(L) 12.4 - 15.1 % 05/07/2025 7:04 AM [facility] PLT 192 151 - 353 x10'3/uL 05/07/2025 7:04 AM [facility] MPV 11.9 9.6 - 12.0 FL 05/07/2025 7:04 AM [facility] RBC MORPHOLOGY NORMAL 05/07/2025 7:04 AM [facility] PLT MORPH. NORMAL 05/07/2025 7:04 AM [facility] WBC MORPHOLOGY NORMAL 05/07/2025 7:04 AM [facility] LYMPHOCYTES % 33.4 15.8 - 45.0 % 05/07/2025 7:04 AM [facility] NEUTROPHILS % 55.6 42.1 - 71.9 % 05/07/2025 7:04 AM [facility] MONOCYTES % 8.6 5.7 - 12.5 % 05/07/2025 7:04 AM [facility] EOSINOPHILS 1.4 0.0 - 5.6 % 05/07/2025 7:04 AM [facility] BASOPHILS 0.7 0.0 - 1.3 % 05/07/2025 7:04 AM [facility] ABS. NEUTROPHILS 3.28 1.40 - 6.00 x10'3/uL 05/07/2025 7:04 AM [facility] IMMATURE GRANS % 0.3 0.0 - 0.5 % 05/07/2025 7:04 AM [facility] ABS. LYMPHOCYTES 1.97 0.80 - 4.70 x10'3/uL 05/07/2025 7:04 AM [facility] 05/07/2025 6:39 AM DIGESTER CAPPER Moo England MD LABORATORY Final Result [facility] [address] [place] [address], * (ABNORMAL) COMPREHENSIVE METABOLIC PANEL (05/04/2025 6:37 AM DIGESTER CAPPER) Only the most recent of2 resultswithin the time period is included. GLUCOSE 97 70 - 99 MG/DL 05/04/2025 7:45 AM [facility] BUN 5(L) 7 - 18 MG/DL 05/04/2025 7:45 AM [facility] CREATININE S/P/B 0.79 0.55 - 1.02 MG/DL 05/04/2025 7:45 AM [facility] SODIUM S/P/B 141 136 - 145 MMOL/L 05/04/2025 7:45 AM [facility] POTASSIUM S/P/B 3.6 3.5 - 5.1 MMOL/L 05/04/2025 7:45 AM [facility] CHLORIDE S/P/B 104 100 - 108 MMOL/L 05/04/2025 7:45 AM [facility] CO2 32.6(H) 21 - 32 MMOL/L 05/04/2025 7:45 AM [facility] CALCIUM S/P/B 8.5 8.5 - 10.1 MG/DL 05/04/2025 7:45 AM [facility] BILIRUBIN TOTAL S/P/B 0.9 0.2 - 1.2 MG/DL 05/04/2025 7:45 AM [facility] TOTAL PROTEIN S/P/B 6.0(L) 6.4 - 8.2 G/DL 05/04/2025 7:45 AM [facility] ALBUMIN S/P/B 3.1(L) 3.4 - 5.0 G/DL 05/04/2025 7:45 AM [facility] AST 13(L) 15 - 37 U/L 05/04/2025 7:45 AM [facility] ALT 11(L) 14 - 55 U/L 05/04/2025 7:45 AM [facility] ALKALINE PHOSPHATASE S/P/B 62 50 - 136 U/L 05/04/2025 7:45 AM [facility] ANION GAP 4.4(L) 5 - 15 MMOL/L 05/04/2025 7:45 AM [facility] BUN CREATININE RATIO 6.3 6 - 26 05/04/2025 7:45 AM [facility] A/G RATIO 1.1 1.0 - 2.0 RATIO 05/04/2025 7:45 AM [facility] GFR ESTIMATE 78(L) >90 ML/MIN/1.7 3 M2 05/04/2025 7:45 AM [facility] Comment: NOTE: eGFR is not calculated for patients <18 years of age. This is an estimated GFR calculation using the new CKD EPI creatinine equation without race and so does not require a correction factor for race. This estimated GFR should not be used for calculating drug doses. 05/04/2025 6:3 7 AM DIGESTER CAPPER us Candida Rashid NP LABORATORY Final Result Performing Organization Address [facility] Co de Phone Number [facility] [address] [place] [address], [place] [phone] * MAGNESIUM (05/04/2025 6:37 AM DIGESTER CAPPER) MAGNESIUM 1.8 1.8 - 2.4 MG/DL 05/04/2025 7:45 AM [facility] 05/04/2025 6:37 AM DIGESTER CAPPER us Candida Rashid NP LABORATORY Final Result Performing Organization Address [facility] Co de Phone Number [facility] [address] [place] [address], [place] [phone] * (ABNORMAL) Urinalysis, Auto, Complete (05/03/2025 6:29 PM CDT) COLOR (U) YELLOW 05/03/2025 7:27 PM CDT [facility] TRANSPARENCY CLEAR 05/03/2025 7:27 PM CDT [facility] SPECIFIC GRAVITY (U) 1.010 1.000 - 1.030 05/03/2025 7:27 PM CDT [facility] U PH 7.0 5.0 - 9.0 05/03/2025 7:27 PM CDT [facility] LEUKOCYTES (U) 1+(A) NEGATIVE 05/03/2025 7:27 PM CDT [facility] NITRITES NEGATIVE NEGATIVE 05/03/2025 7:27 PM CDT [facility] PROTEIN RANDOM (U) NEGATIVE NEGATIVE 05/03/2025 7:27 PM CDT [facility] GLUCOSE (U) NEGATIVE NEGATIVE 05/03/2025 7:27 PM CDT [facility] KETONES MG/DL (U) NEGATIVE NEGATIVE 05/03/2025 7:27 PM CDT [facility] BILIRUBIN (U) NEGATIVE NEGATIVE 05/03/2025 7:27 PM CDT [facility] BLOOD (U) NEGATIVE NEGATIVE 05/03/2025 7:27 PM CDT [facility] WBC/HPF 5-10 0 - 5 /HPF 05/03/2025 7:27 PM CDT [facility] RBC/HPF 0-5 0 - 5 /HPF 05/03/2025 7:27 PM CDT [facility] EPI/HPF RARE /HPF 05/03/2025 7:27 PM CDT [facility] URINE SPECIMEN OBTAINED BY CLEAN CATCH PROCEDURE / Unknown 05/03/2025 6:29 PM CDT us Krunal Hines MD URINE ORDERABLES Final Result [facility] [address] [place] [address], [place] [phone] * CULTURE, BACTERIA, BLOOD (05/03/2025 12:01 PM CDT) Only the most recent of2 resultswithin the time period is included. SPEC DESCRIPTION BLOOD 05/03/2025 11:33 AM CDT [facility] SPECIAL REQUESTS NO SPECIAL REQUEST 05/03/2025 11:33 AM CDT [facility] CULTURE RESULT NO GROWTH 5 DAYS 05/09/2025 12:53 PM DIGESTER CAPPER [facility] BLOOD SPECIMEN OBTAINED FOR BLOOD CULTURE / Unknown 05/03/2025 12:01 PM CDT 05/03/2025 12:02 PM CDT us Krunal Hines MD MICROBIOLOGY - GENERAL ORDERABL ES Final Result Performing Organization Address City/State/[facility] Co de Phone Number [facility] [address] [place] [address], [place] [phone] [facility] [address] [place] [address], [place] [phone] * CT ABD+PEL W CON (05/03/2025 10:40 AM CDT) Anatomical Region Laterality Modality Abdomen Computed Tomogra phy 05/03/2025 10:5 2 AM CDT Impressions 05/03/2025 10:55 AM CDT Impression: Acute sigmoid colon diverticulitis. No perforation or abscess. Referred By: Interpreted By: Pete Connor MD, 05/03/2025 10:52 AM Narrative 05/03/2025 10:55 AM CDT [place] [id number] [facility] [place] [address] Examination: CT ABD+PEL W CON Exam time: [...] Procedure Note Pete Connor MD - 05/03/2025 [facility] [address] [facility] [place] [address] Examination: CT ABD+PEL W CON Exam time: [...] ACID - SINGLE (05/03/2025 9:24 AM CDT) LACTIC ACID VENOUS 2.0 0.4 - 2.0 MMOL/L 05/03/2025 9:52 AM CDT [facility] 05/03/2025 9:24 AM CDT us Krunal Hines MD LABORATORY Final Result [facility] [address] [place] [address], * BETA-HYDROXYBUTYRATE (05/03/2025 9:20 AM CDT) BETA-HYDROXYBUT YRATE 0.2 0.0 - 0.6 MMOL/L 05/03/2025 10:01 AM CDT [facility] 05/03/2025 9:20 AM CDT us Krunal Hines MD LABORATORY Final Result Performing Organization Address [facility] Co de Phone Number [facility] [address] [place] [address], [place] [phone] * TROPONIN, QUANT (05/03/2025 9:20 AM CDT) TROPONIN I HIGH SENSITIVITY 6 0 - 50 ng/L 05/03/2025 9:51 AM CDT [facility] Comment: HIGH DOSES OF BIOTIN, TROPONIN-SPECIFIC AUTOANTIBODIES, AND ANTIBODY THERAPY CONTAINING HAMA MAY INTERFERE WITH THIS TEST RESULT. CORRELATION TO CLINICAL HISTORY AND PRESENTATION RECOMMENDED. 05/03/2025 9:20 AM CDT us Krunal Hines MD LABORATORY Final Result Performing Organization Address [facility] Co de Phone Number [facility] [address] [place] [address], [place] [phone] * LIPASE (05/03/2025 9:20 AM CDT) LIPASE 23 16 - 77 UNITS/L 05/03/2025 9:46 AM CDT [facility] 05/03/2025 9:20 AM CDT us Krunal Hines MD LABORATORY Final Result Performing Organization Address City/[facility] Co de Phone Number [facility] [address] [place] [address], [place] [phone] * CK (CPK) (05/03/2025 9:20 AM CDT) CPK 147 26 - 192 U/L 05/03/2025 9:46 AM CDT [facility] 05/03/2025 9:20 AM CDT us Krunal Hines MD LABORATORY Final Result [facility] [address] [place] [address], * MG DIAG W FLAKITO LT DIGI [...] 2:17 PM Narrative 10/18/2024 2:22 PM CDT [facility] [address] [place] [address] EXAMINATION: Digital left diagnostic mammogram with 3-D tomography. Left breast ultrasound [id number] EXAM DATE/TIME: 10/18/2024 12:55 PM REASON FOR [...] Naylor PA-C DEXA Final Resu lt * (ABNORMAL) LIPID PANEL (07/31/2023 5:15 AM DIGESTER CAPPER) [facility] CHOLESTEROL 169 <200.0 MG/DL 07/31/2023 6:21 AM DIGESTER CAPPER [facility] TRIGLYCERIDES 117 <150 MG/DL 07/31/2023 6:21 AM DIGESTER CAPPER [facility] HDL 40(L) >40.0 MG/DL 07/31/2023 6:21 AM [facility] LDL (CALCULATED) 106(H) <100 MG/DL 07/31/2023 6:21 AM [facility] NON HDL CHOLESTEROL 129 <130 MG/DL 07/31/2023 6:21 AM [facility] CHOL/HDL RATIO 4.2 0.0 - 4.5 07/31/2023 6:21 AM [facility] VLDL CALCULATION 23 5 - 55 MG/DL 07/31/2023 6:21 AM [facility] LIPID INTERPRETATION 07/31/2023 6:21 AM [facility] Comment: [facility] REPORT RECOMMENDATIONS: ADULT CHILD LOW RISK: CHOLESTEROL <200 <170 TRIGLYCERIDE <150 --- HDL >=60 --- LDL <100 <110 BORDERLINE: CHOLESTEROL 200-239 170-199 TRIGLYCERIDE 150-199 --- HDL 40-59 --- LDL 100-159 110-129 HIGH RISK: CHOLESTEROL >=240 >=200 TRIGLYCERIDE >=200 --- HDL <40 --- LDL >=160 >=130 07/31/2023 5:15 AM DIGESTER CAPPER Moo England MD LABORATORY Final Result Performing Organization Address City/State/[facility] de Phone Number [facility] [address] [place] [address], * CT CHEST W CON (03/12/2021 1:23 [...] Recently Relevant to Health Maintenance Insurance MEDICARE [facility] Advance Directives * Full Code [...] 12:39 PM 05/07/2021 4:25 PM Care Teams Direct Customer Service Representative Relationship Specialty Start Date End Date Slime Naylor PA-C [address] [place], [place] [address], [place] [address] PCP - General PHYSICIAN HYPERBARIC NURSE 02/09/22 Jose Cruz Pedro MD [address] [facility] [address] [address] CARDIOVASCULAR DISEASE 05/12/21
--- OUTSIDE RECORDS SUMMARY | 2025-06-30 11:28 | XMS_ITS | Clinical Summary ---
Author Organization [facility] [address] Address [address] [place] [address] Care Team Providers Care Office Manager Executive Assistant Name Role Phone Juli Koroma Primary Care Provider [phone] Allergies Active Allergy Reactions Criticality Noted Date [...] Diagnosed Date Coronary artery disease invo lving [place] coronary artery of [place] heart without angina pectoris 06/22/2017 History of coronary artery stent placement 06/22 Encounters Date Type Department Care Team Description 05/08/2025 10:15 AM CARD RUNNER Office Visit [facility] Cardiology [address] [facility] [address] [place] [address] Jose Cruz Pedro MD Coronary artery disease involving [place] coronary artery of [place] heart without angina pectoris (Primary Dx); History [...] on file Legal Sex Female 2:46 AM CARD RUNNER Gender Identity Not on file Sexual Orientation Not on file Last Filed Vital Signs Vital Sign Reading Time Taken Comments Blood Pressure 124/66 05/08/2025 10:21 AM CARD RUNNER Pulse 91 05/08/2025 10:21 AM CARD RUNNER Temperature - - Respiratory Rate - - Oxygen Saturation 98% 05/08/2025 10: 21 AM CARD RUNNER Inhaled Oxygen Concentration - - Weight 67.5 kg (148 lb 14.4 oz) 025 10:21 AM CARD RUNNER Height 152.4 cm (5') 05/08/2025 10:21 AM CARD RUNNER Body Mass Index 29.08 05/08/2025 10:21 AM CARD RUNNER Plan of Treatment Health Maintenance Due Date [...] 65+ Completed 03/08/2017, 02/01 Insurance MEDICARE MEDICARE [facility] MEDICARE SUPPLEMENT Care Teams Office Manager Executive Assistant Relationship Specialty Start Date End Date Juli Koroma PA [facility] [place] [address] PCP - General Family Practice 10/29/24
--- OUTSIDE RECORDS SUMMARY | 2025-06-30 11:28 | XMS_ITS | Encounter Summary ---
Author Organization [facility] Address [address] [facility] [address] [facility] [address] [place] [address] Care Team Providers Care Crab Backer Name Role Phone Priyank Diaz MD Primary Care Provider Fercho Mccallum MD Primary Care Provider [phone] Juli Koroma Primary Care Provider [phone] Encounter Details Date Type Department Care Team ([facility] Contact Info) Description 10/03/2016 Orders Only [facility] ProviderNegar MD [address] [place] [id number] Social History Tobacco Use Types Packs/Day Years Used Date Smoking Tobacco: Never Assessed Comments:Smoking History Pac ks/day: 1 Packs Alcohol Use Standard Drinks/Week Comments No 0 (1 standard drink = 0.6 oz pur e alcohol) Comments Unknown Sex and Gender Information Value Date Recorded Sex Assigned at Not on file Legal Sex Female 2:46 AM ETCHER HAND Gender Identity Not on file Sexual Orientation [...] on filedocumented in this encounter Care Teams Crab Backer Relationship Specialty Start Date End Date Priyank Diaz MD [address] [place] [address] PCP - General 09/30/16 04/18/22 Fercho Mccallum MD [address] [place] [address] PCP - General Family Medicine 04/19/22 10/28/24 Juli Koroma PA [address] [place] [address] PCP - General Family Practice 10/29/24 documented as of this encounter
--- OUTSIDE RECORDS SUMMARY | 2025-06-30 11:28 | XMS_ITS | Encounter Summary ---
Author Organization [facility] Address [address] [place] [address] Care Team Providers Care Rock Drill Operator Name Role Phone Jose Cruz Pedro MD Unavailable [phone] Juli Koroma PA-C Primary Care Provider [phone] Encounter Details Date Type Department Care Team (Latest Contact Info) Description 05/12/2025 Engine Yard Message Enc [facility] [place] [address] [id number] [facility] Referral Social History Tobacco Use Types Packs/Day Years Used Date Smoking Tobacco: Former Cigarettes 1.5 40 0 07/03/1978 - 07/03/2018 Smokeless Tobacco: Never Alcohol Use Standard Drinks/Week Comments Not Currently 1 (1 standard drink = 0.6 oz pure alcohol) rarely, once a year has a drink [facility] Utilities Answer Date Recorded In the past 12 months has [employer], gas, oil, or water [employer] threatened to shut off services in your [...] How often do you attend chur or confucianist services? 1 to 4 times per year 07/30/2023 Do you belong to any clubs o r organizations such as christianity groups, unions, fraternal or athletic groups, or [...] Recorded Patient Health Questionnaire-2 Score 0 05/01/2025 [facility] - Occupational [...] place to sleep or slept in a alf (including now)? No 07/30/2023 Humiliation, Afraid, Rape, [...] any time in the past 12 m [facility], were you homeless or living in a alf (including now)? No 05/03/2025 [facility] Utilities Answer Date Recorded In the past [...] Description 10/07/2025 11:40 AM CDT Office Visit [facility] - [facility] [address], [address] [place] [address] Tony Saldivar MD [address] [place] [address] 10/31/2025 2:00 PM CDT Appointment [facility] [address] [place], [place] [id number] Martin Garcia MD [address] [facility]. [address] [place], [place] [id number] documented as of this encounter Goals Goal Patient Goal Type Associated Problems Recent Progress Patient-Stated? Author Patient will return to prior living situation and remain independent in ADLs upon discharge from hospital General No Leslie Foreman RN documented as of this encounter Visit Diagnoses Not on filedocumented in this encounter Care Teams Rock Drill Operator Relationship Specialty Start Date End Date Juli Koroma PA-C [facility] [place], [place] [id number] PCP - General PHYSICIAN SENIOR ENERGY MARKET COORDINATOR 02/09/22 Jose Cruz Pedro MD [address] [address] CARDIOVASCULAR DISEASE 05/12/21 documented as of this encounter
--- OUTSIDE RECORDS SUMMARY | 2025-06-30 11:28 | XMS_ITS | Clinical Summary ---
Author Organization [facility] Address [address] [address] Care Team Providers Care Wool Hat Forming Machine Tender Name Role Phone Unavailable Primary Care Provider Unavailabl e Source Comments [facility] [employer],non-owned Affiliates and Associated Physician Practices is amultiple site organization consisting of ambulatory clinics and hospital sitesin [place], [place], [place] and [place]. This disclosure is being madepursuant to the Care Everywhere program and may not contain all information available regarding this patient. Last updated 18.[facility] [employer] Active Problems Problem Noted Date Diagnosed Date Cerebrovascular accident (CVA) 05/03/2021 Social History Tobacco Use Types Packs/Day Years Used Date Smoking Tobacco: Never Assessed Comments Unknown Sex and Gender Information Value Date Recorded Sex Assigned at Not on file Legal Sex Female 5:23 AM TAPE CUTTER Gender Identity Not on file Sexual Orientation [...] MORRELL Subscriber ID:Not on file (Home) Address: [address] [place] [id number] Payer ID:Not on file Group ID:Not on file Type:Self Pay Address: [place], [place]
[2025-06-30 11:33] LABS: EDSTREPNEGPOS1 Negative (Negative)
[2025-06-30 11:34] LABS: EDSTREPNEGPOS1 Negative (Negative)
--- NOTE | 2025-06-30 11:41 | ED.URI ---
HPI - URI/Sore Throat General Chief Complaint: Upper Respiratory Infection Stated Complaint: Upper Respiratory Infection Time Seen by Provider: 06/30/25 11:32 Source: patient and RN notes reviewed Mode of arrival: ambulatory Limitations: no limitations History of Present Illness HPI Narrative: 74-year-old female patient with history of COPD and hypertension, presents today complaining of a 3 day history of postnasal drip, productive cough, rhinorrhea, frontal headache, congestion. Denies fever or shortness of breath. She has tried some zkvl-nxq-ibhyuiz cough medicine without relief. Related Data Home Medications ?Medication ?Instructions ?Recorded ?Confirmed ?Last Taken ?Type cholecalciferol (vitamin D3) 50 50 mcg PO HS 01/17/20 05/09/25 08/21/24 History mcg (2,000 unit) capsule (Vitamin D3) ferrous gluconate 324 mg (37.5 mg 324 mg PO HS 01/17/20 05/09/25 08/21/24 History iron) tablet vitamin B complex (B 1 tablet PO HS 01/17/20 05/09/25 01/26/20 21:00 History Complex-Vitamin B12 tablet) coenzyme Q10 200 mg capsule 200 mg PO DAILY 03/25/22 05/09/25 08/21/24 History aspirin 81 mg tablet,delayed 81 mg PO DAILY 08/08/23 05/09/25 08/21/24 History release ezetimibe 10 mg tablet (Zetia) 10 mg PO DAILY 01/09/24 05/09/25 08/21/24 History levothyroxine 50 mcg tablet 50 mcg PO DAILY 02/27/25 05/09/25 Unknown History (Euthyrox) Allergies Allergy/AdvReac Type Severity Reaction Status Date / Time hydralazine Allergy Intermediate Palpitation Verified 06/30/25 11:07 s adhesive tape AdvReac Mild REDNESS Verified 06/30/25 11:07 clindamycin AdvReac Mild Rash Verified 06/30/25 11:07 PMFSH Past Medical History Medical History Cough Dry eyes, bilateral Stroke Anemia Depression Anxiety Hypothyroidism Back pain Hemorrhoids Gastroesophageal reflux disease DYSPHAGIA, ESOPHAGEAL STRICTURE- DILATED IN PAST COPD (chronic obstructive pulmonary disease) HX CORRECTION SMOKER HTN (hypertension) Hypercholesterolemia CAD (coronary artery disease) 1 STENT 2012 Hx of transient ischemic attack (TIA) X2 Surgical History Surgical History History of hysterectomy still has ovaries History of left-sided carotid endarterectomy Hx of cardiac catheterization 1 2012 Family History Family History Sibling Depression Cerebrovascular accident Thyroid disorder Other Cancer Social History Social History Social History: 11/11/24 very confident with medical form 05/08/25 declined SDOH Smoking packs per day: 2 Smoking cigarettes per day: 40.0 Years smoked: 60 Smoking pack-years: 120.00 Smoking status: Former smoker Tobacco type: cigarettes Second hand tobacco smoke exposure: No Alcohol intake: current Substance use: never Substance use type: does not use Lack of Transportation: No Lack of Food: Never True Current Housing: I Have Housing Concerned About Future Housing: No Difficulty Paying Gas/Electric Bills: No Difficulty Paying for Meds: No Currently Unemployed: No Education: High School Diploma/GED Difficulty w/ Childcare or Family Care: No Living arrangements: with family Occupation/Education: occupation Gender identity (if verbalized by the patient): Female Sexual Orientation (if Verbalized by the Patient): Straight or Heterosexual Spiritual care concerns: No Comments At time of signature, I have reviewed and agree with nursing past medical, surgical, social and family history unless otherwise noted. Please see nursing chart for further information. There is no relevant family history pertinent to the presenting complaint Exam Narrative: GENERAL: Mildly ill-appearing, well-nourished, and in no acute distress. HEAD: Normocephalic, atraumatic. EYES: EOMI. No redness or drainage. Conjunctivae normal. ENT: Mucous membranes pink and moist. Nares congested with rhinorrhea. TMs normal bilaterally. Throat normal. Uvula midline. NECK: Normal AROM. Supple. No lymphadenopathy. CHEST: No respiratory distress. Clear to auscultation. HEART: Regular rate and rhythm. No murmur appreciated. EXTREMITIES: Normal range of motion. No edema. SKIN: Warm, dry, no rash. Capillary refill normal. Normal skin turgor. NEURO: No focal deficits. Alert and oriented x3. Gait steady. PSYCH: Normal affect. No signs of depression or anxiety. Course Course Level of Care: Express Care Visit Vital Signs Vital signs: Vital Signs Temperature 96.5 F L 06/30/25 11:05 Pulse Rate 103 H 06/30/25 11:05 Respiratory Rate 20 06/30/25 11:05 Blood Pressure 150/85 H 06/30/25 11:05 Pulse Oximetry 98 06/30/25 11:05 Oxygen Delivery Room Air 06/30/25 11:05 Temperature 96.5 F L 06/30/25 11:05 Pulse Rate 103 H 06/30/25 11:05 Respiratory Rate 20 06/30/25 11:05 Blood Pressure 150/85 H 06/30/25 11:05 Pulse Oximetry 98 06/30/25 11:05 Oxygen Delivery Room Air 06/30/25 11:05 Reviewed [facility] Narrative Medical decision making narrative: 74-year-old female patient with history of COPD and hypertension, presents today complaining of a 3 day history of postnasal drip, productive cough, rhinorrhea, frontal headache, congestion. Denies fever or shortness of breath. She has tried some kaxc-siq-ykzyvok cough medicine without relief. Upon exam, patient is mildly ill appearing nasal congestion, rhinorrhea. Strep negative. Culture pending. Symptoms likely viral in etiology. Discussed zlbo-oop-mxzpicf medication use and duration of illness. Patient would like a prescription for more Tessalon Perles that she has had past. Recommend starting some Flonase to help with her congestion in sinus pressure. Anticipatory guidance given. Patient agrees with plan. Vital signs stable mildly elevated blood pressure. ED precautions given Differential Diagnosis Differential Diagnosis: URI, strep throat, sinusitis Lab Data [facility] Lab Attestation statement: I personally reviewed the patient's lab results. Labs: Lab Results 06/30/25 06/30/25 Range/Units 11:32 11:32 POC Grp A Strep Screen Negative Negative (Negative) Critical Care Time Critical Care Time Critical Care Time: No Discharge Plan Discharge Clinical Impression: Upper respiratory infection Qualifiers: URI type: unspecified URI Qualified Code(s): J06.9 - Acute upper respiratory infection, unspecified Patient Disposition: Home Condition: Stable Instructions: Upper Respiratory Infection (DC) Additional Instructions: Your symptoms are likely due to a viral illness, which is not treated with antibiotics. Virus symptoms can last for up to 7-10days. Take Tylenol for pain or fever. Take the Tessalon Perles for cough. Consider starting some Flonase as well. Rest and stay hydrated. Follow up with your PCP in 7 days if symptoms are not improving. Go to the ER immediately if you develop shortness of breath, difficulty swallowing, or any other concerning symptoms. Patient Language: Maltese Prescriptions: New benzonatate 200 mg capsule 200 mg PO TID PRN (Reason: cough) Qty: 20 0RF No Action coenzyme Q10 200 mg capsule 200 mg PO DAILY [employer] 1.5 billion cell capsule 1 cap PO .qd Qty: 30 0RF aspirin 81 mg tablet,delayed release (DR/EC) 81 mg PO DAILY nitroglycerin 0.4 mg tablet, sublingual 0.4 mg sublingual BID PRN (Reason: Chest Pain) Qty: 25 0RF ezetimibe [Zetia] 10 mg tablet 10 mg PO DAILY fluconazole 150 mg tablet 150 mg PO ONCE Qty: 2 0RF Rx Instructions: take one tab x1 then repeat 3d cyclobenzaprine 5 mg tablet 5 mg PO TID PRN (Reason: muscle spasm) Qty: 30 0RF vitamin B complex [B Complex-Vitamin B12] Tablet 1 tablet PO HS cholecalciferol (vitamin D3) [Vitamin D3] 50 mcg (2,000 unit) Capsule 50 mcg PO HS ferrous gluconate 324 mg (37.5 mg iron) Tablet 324 mg PO HS pravastatin 40 mg tablet 40 mg PO QHS Qty: 90 0RF levothyroxine [Euthyrox] 50 mcg tablet 50 mcg PO DAILY clopidogrel 75 mg tablet 75 mg PO DAILY Qty: 90 0RF levothyroxine [Synthroid] 50 mcg tablet 50 mcg PO DAILY Qty: 90 0RF fluoxetine [Prozac] 10 mg capsule 10 mg PO DAILY Qty: 90 0RF montelukast 10 mg tablet 10 mg PO QHS Qty: 90 1RF benazepril 20 mg tablet 20 mg PO DAILY Qty: 90 0RF pantoprazole 40 mg tablet,delayed release (DR/EC) 40 mg PO BID Qty: 180 0RF Follow-up/Referrals: Juli Koroma PA-C [Primary Care Provider, Family Practice] Time of Disposition: 11:46
== END 2025-06-30 11:46 | disposition home or self-care (01) ==
PROVIDERS: Emergency Provider Nurse Practitioner; PCP Physician Assistant Medical
DX: J06.9 Acute upper respiratory infection, unspecified (principal); I10 Essential (primary) hypertension; J44.9 Chronic obstructive pulmonary disease, unspecified; I25.10 Atherosclerotic heart disease of native coronary artery without angina pectoris; D64.9 Anemia, unspecified; E03.9 Hypothyroidism, unspecified
CPT/HCPCS: 87081; 87880; 99213; G0463